=== PATIENT | male | born 1945 | race Caucasian/White ===

== ENCOUNTER 2019-08-08 01:25 | Day surgery (SDC) | payer OTHER, SELFPAY ==
[2019-08-07 17:01] VITALS: BMI 26.6
[2019-08-08] VITALS (13 sets, daily range): BP systolic 95–135; BP diastolic 59–95; PULSE 65–79; RESP 10–17; TEMP 36.7–36.9; O2SAT 96–99
[2019-08-08 07:52] LABS: Basophils Absolute Auto 0.1 K/mm3 (0.0-0.1); Eosinophils Absolute Auto 0.2 K/mm3 (0-0.3); Hematocrit 50.6 % (42.0-52.0); Hemoglobin 16.2 g/dL (14.0-18.0); Immature Granulocyte Absolute 0.02 K/mm3 (0.00-0.031); Immature Granulocyte Percent A 0.3 % (0-0.5); Lymphocytes Absolute Auto 1.81 K/mm3 (0.9-3.2); Lymphocytes Percent Auto 23.6 % (18.3-44.2); Mean Corpuscular Hemoglobin 30.8 pg (26-34); Mean Corpuscular Volume 96.2 fl (80-100); Mean Platelet Volume 11.2 fl (7.4-10.4); Monocytes Absolute Auto 0.6 K/mm3 (0.1-0.6); Monocytes Percent Auto 8.2 % (2.6-8.5); Neutrophils Percent Auto 64.9 % (45.5-73.1); Platelet Count Result 218 k/mm3 (150-375); Red Blood Count 5.26 M/mm3 (4.6-6.20); Red Cell Distribution Width 12.2 % (11.5-14.5); White Blood Count 7.7 K/mm3 (4.5-10.0)
[2019-08-08 07:56] LABS: Prothrombin Time 12.8 Seconds (11.1-14.7)
[2019-08-08 08:02] LABS: Blood Urea Nitrogen 20 mg/dL (9-20); Calcium 9.4 mg/dL (8.4-10.2); Carbon Dioxide 28 mmol/L (22-30); Chloride 102 mmol/L (98-107); Estimated CRCL calculation 49 ml/min; Estimated Glomerular Filt Rate > 60; Glucose 134 mg/dL (75-110); Potassium 4.4 mmol/L (3.4-5.0); Sodium 140 mmol/L (137-145)
--- NOTE | 2019-08-08 09:04 | WPDMODSED ---
Moderate Sedation Note-Pt Data Patient Data Diagnosis: Newly diagnosed cardiomyopathy Present Complaint: fatigue/dyspnea Procedure to be performed/Plan: left heart catheterization Allergies Allergy/AdvReac Type Severity Reaction Status Date / Time No Known Allergies Allergy Unverified 04/05/16 15:02 Home Medications Medication Instructions Recorded Confirmed Type aspirin 81 mg PO DAILY 08/07/19 08/07/19 History carvedilol 3.125 mg PO BID 08/07/19 08/07/19 History ciprofloxacin HCl [Cipro] 500 mg PO Q12H 08/07/19 08/07/19 History glimepiride [Amaryl] 1 mg PO DAILY 08/07/19 08/07/19 History lisinopril 40 mg PO DAILY 08/07/19 08/07/19 History lovastatin 40 mg PO QPM 08/07/19 08/07/19 History metformin 500 mg PO BID 08/07/19 08/07/19 History Current Medications: Active Medications Sodium Chloride (Normal Saline Iv) 500 mls @ 100 mls/hr IV CONT .Q5H [facility] Sedation/Anesthesia: No previous sedation/anesthesia problems (including family history). [facility] Social History Social History Gender identity (if verbalized by the patient): Male Mod Sed Physical Exam Physical Exam Pre Procedural Exam: Normal: Appearance, Neck, Throat, Airway, Lungs, Heart Rate, Heart Rhythm, Neuro Exam and Extremities and Variation: Heart Size ( PMI laterally displaced) Hours since solid foods: 12 Hours since liquid intake: 12 Internal Medicine - PN: Obj Da Vital Signs Vital Signs: Vital Signs - 24 hr 08/08/19 07:45 Temperature 36.9 C Pulse Rate 66 Respiratory Rate 10 L Blood Pressure 126/81 Pulse Oximetry 99 Meds/Results Medications: Active Medications Generic Name Dose Route Start Last Admin Trade Name Freq PRN Reason Stop Dose Admin Sodium Chloride 500 mls @ 100 mls/hr 08/08/19 06:00 Normal Saline Iv IV CONT .Q5H [facility] Labs CBC & Chem 7: 08/08/19 07:41 08/08/19 07:41 Labs: Laboratory Results - last 24 hr 08/08/19 08/08/19 08/08/19 07:41 07:41 07:41 WBC 7.7 RBC 5.26 Hgb 16.2 Hct 50.6 MCV 96.2 MCH 30.8 MCHC 32.0 RDW 12.2 Plt Count 218 MPV 11.2 H Immature Gran % (Auto) 0.3 Neut % (Auto) 64.9 Lymph % (Auto) 23.6 Edmunds % (Auto) 8.2 Eos % (Auto) 2.0 Baso % (Auto) 1.0 Lymph # (Auto) 1.81 Edmunds # (Auto) 0.6 Eos # (Auto) 0.2 Baso # (Auto) 0.1 Abs Immat Gran (auto) 0.02 Absolute Neuts (auto) 5.0 Absolute Nucleated RBC 0.0 Nucleated RBC % 0.0 PT 12.8 INR 1.0 Sodium 140 Potassium 4.4 Chloride 102 Carbon Dioxide 28 BUN 20 Creatinine 1.00 Estim Creat Clear Calc 49 Estimated GFR > 60 Glucose 134 H Calcium 9.4 ASA Classification/Sedation ASA Classification/Sedation ASA Class: II Emergent: No Risks: Risks, benefits and alternatives explained and patient/family accepted plan for sedation. Patient re-evaluated immediately prior to sedation.
--- NOTE | 2019-08-08 09:33 | P.PCNCC_ITS ---
Cardiac Cath Procedure Note Date of procedure:: 08/08/19 Performing physician:: Kelechi Bryant MD Indication:: cardiomyopathy with low ejection fraction Brief clinical history:: 74-year-old patient with no previous significant cardiac history seen in the office with newly recognized left ventricular systolic dysfunction. By ECHO the patient appears to have a global cardiomyopathy. Catheterization was recommended to define the coronary anatomy in this setting. Procedure Procedure performed:: Left heart catheterization with left ventriculography and coronary angiography Sedation/Medication given:: fentanyl 50 mg Versed 2 mg case start time 9:11 a.m. case end time 9:26 a.m. sedation provided by Laney Garcias RN, trained observer Access site:: right femoral artery Estimated blood loss:: 15-20 cc Procedure note:: patient was brought to the cardiac catheterization lab in the postabsorptive state where the right femoral triangle was prepared in the usual fashion anesthesia was given with 1% lidocaine infiltrated locally. Using the modified Seldinger technique a 5 Trinidadian sheath was placed into the femoral artery. After this left heart catheterization was carried out. A 5 Trinidadian angled pigtail catheter was used to measure left-sided hemodynamics and to injected LV g in the are AO projection. Following this the pigtail catheter was removed. A standard 5 Trinidadian FL4 catheter was used to engage inject the left coronary artery after this a 5 Trinidadian JR4 catheter was used to engage inject the right coronary artery. Cineangiograms were then reviewed and the case was terminated. Patient was taken to the holding area for manual sheath removal. There were no signs of any procedural complications. There was no groin hematoma upon leaving chemical lab technician Findings:: central aortic pressure is 102/50 left ventricle 102/0 end-diastolic pressure of 10 no gradient was seen across the aortic valve upon pullback. Left main coronary artery is of large caliber there is mild atherosclerotic plaque in the midportion of the LAD representing no more than 20-30% stenosis. There was no pressure damping with a 5 Trinidadian diagnostic catheter distal to this lesion. The LAD is a medium caliber vessel extending down to around the apex. There is mild atherosclerotic plaquing in the proximal portion of the LAD. There is a very large diagonal branch after which there is a 95% stenosis in the LAD immediately after this diagonal branch. Circumflex is a [id number] caliber vessel giving rise to the marginal branches circumflex system is free of disease right coronary artery is large in caliber dominant to the posterior circulation it is somewhat tortuous but free of disease. The left ventricle is markedly dilated and globally hypodynamic. 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 Normal left ventricular filling pressures severe single-vessel coronary artery disease with high-grade stenosis in the LAD with the lesion located immediately at a may very large diagonal branch. PCI of this coronary artery disease should be recommended as optimal treatment however the procedure is not an emergency and is substantially increased risk since we are seeing a patient with severely depressed LV function and a significant lesion involving the LAD diagonal bifurcation. It is my opinion that this PCI should be done at a larger hospital With more interventional capabilities and cardiothoracic surgery standby for the patient's safety
== END 2019-08-08 16:15 | disposition home or self-care (01) ==
PROVIDERS: PCP Family Medicine Adolescent Medicine; Visit Provider Specialist
PROC: 4A023N7 Measurement of Cardiac Sampling and Pressure, Left Heart, Percutaneous Approach (ICD-10-PCS; CPT 93452; principal; 2019-08-08 08:30)
DX: I42.9 Cardiomyopathy, unspecified (principal); I25.10 Atherosclerotic heart disease of native coronary artery without angina pectoris; I50.20 Unspecified systolic (congestive) heart failure; E11.9 Type 2 diabetes mellitus without complications; N40.0 Benign prostatic hyperplasia without lower urinary tract symptoms; E78.5 Hyperlipidemia, unspecified; Z79.82 Long term (current) use of aspirin; Z79.84 Long term (current) use of oral hypoglycemic drugs
CPT/HCPCS: 36415; 80048; 85025; 85610; 93458; C1887; C1894; J1644; J2250; J3010; J7040

== ENCOUNTER 2020-01-17 02:05 | Outpatient (CLI) | payer OTHER, SELFPAY ==
[2020-01-17 21:41] LABS: SARS-CoV-2 RNA PCR Negative
== END 2020-01-17 02:06 | disposition home or self-care (01) ==
LOC: ANHCOVIDDT 02:05
PROVIDERS: PCP Family Medicine Adolescent Medicine; Visit Provider Internal Medicine Cardiovascular Disease
DX: Z01.812 Encounter for preprocedural laboratory examination (principal); Z11.59 Encounter for screening for other viral diseases
CPT/HCPCS: 87635; C9803; U0003

== ENCOUNTER 2020-01-20 05:29 | Day surgery (SDC) | payer OTHER, SELFPAY ==
[2020-01-19 16:13] VITALS: BMI 25.7
[2020-01-20] VITALS (16 sets, daily range): BP systolic 101–138; BP diastolic 64–79; PULSE 54–69; RESP 10–18; TEMP 36.3–36.6; O2SAT 96–98; BMI 25.1
--- NOTE | ~2020-01-20 | XR_ITS ---
EXAMINATION: XR chest 2V 01/21/2020 08:21 INDICATION: Defibrillator placement. PROCEDURE: PA and lateral views of the chest COMPARISON: 01/20/2020 FINDINGS: The lungs are clear. The cardiomediastinal silhouette is within normal limits. There are no pleural effusions. There is no pneumothorax suspected. Defibrillator lead position stable in the right ventricle. IMPRESSION: 1: NO ACUTE CARDIOPULMONARY DISEASE. Reviewed, dictated and finalized at location B.
--- NOTE | ~2020-01-20 | XR_ITS ---
EXAMINATION: XR chest 1V portable 01/20/2020 12:40 INDICATION: Defibrillator insertion PROCEDURE: AP portable chest COMPARISON: No prior studies for comparison. FINDINGS: The lungs are clear. The cardiomediastinal silhouette is within normal limits. There are no pleural effusions. There is no pneumothorax suspected. Defibrillator lead tip in the right ventr icle. IMPRESSION: 1: NO ACUTE CARDIOPULMONARY DISEASE. Reviewed, dictated and finalized at location B.
[2020-01-20 08:22] LABS: Basophils Absolute Auto 0.1 K/mm3 (0.0-0.1); Eosinophils Absolute Auto 0.1 K/mm3 (0-0.3); Eosinophils Percent Auto 1.3 % (0-4.4); Hemoglobin 15.4 g/dL (14.0-18.0); Immature Granulocyte Absolute 0.01 K/mm3 (0.00-0.031); Immature Granulocyte Percent A 0.1 % (0-0.5); Lymphocytes Absolute Auto 1.59 K/mm3 (0.9-3.2); Lymphocytes Percent Auto 23.7 % (18.3-44.2); Mean Corpuscular HGB Conc 32.8 g/dl (32-36); Mean Corpuscular Hemoglobin 31.6 pg (26-34); Mean Corpuscular Volume 96.5 fl (80-100); Mean Platelet Volume 10.7 fl (7.4-10.4); Monocytes Absolute Auto 0.4 K/mm3 (0.1-0.6); Monocytes Percent Auto 6.4 % (2.6-8.5); Neutrophils Absolute Auto 4.5 K/mm3 (1.3-6.7); Neutrophils Percent Auto 67.5 % (45.5-73.1); Platelet Count Result 220 k/mm3 (150-375); Red Blood Count 4.87 M/mm3 (4.6-6.20); Red Cell Distribution Width 12.1 % (11.5-14.5); White Blood Count 6.7 K/mm3 (4.5-10.0)
[2020-01-20 08:33] LABS: Blood Urea Nitrogen 20 mg/dL (9-20); Calcium 8.7 mg/dL (8.4-10.2); Carbon Dioxide 23 mmol/L (22-30); Chloride 104 mmol/L (98-107); Estimated CRCL calculation 60 ml/min; Estimated Glomerular Filt Rate > 60; Glucose 152 mg/dL (75-110); Potassium 4.6 mmol/L (3.4-5.0); Sodium 135 mmol/L (137-145)
[2020-01-20 08:36] LABS: INR 1.1; Prothrombin Time 13.4 Seconds (11.1-14.7)
--- NOTE | 2020-01-20 09:38 | P.HPUP_ITS ---
History and Physical Update Update Date/Time: 01/20/20 09:38 Pt w/ CAD, LAD stent 08/2019 and nonischemic cardiomyopathy, EF 30%. At risk for SCD. Wearing Life Vest. Here for elective ICD implant with venogram. H/O left clavicular fracture. Feeling well today. History and Physical has been reviewed, including an updated exam of the patient. There are NO changes in the patient's condition. Risks, benefits, and alternatives have been discussed and questions answered. Nirmala harrywed risks of pacemaker implant with patient. These include breathing problems, allergic reactions, bleeding, infection, pneumothorax, cardiac puncture, need for unanticipated surgery, lead dislodgement among others. Patient agrees to proceed with procedure.
--- NOTE | 2020-01-20 09:41 | WPDMODSED ---
Moderate Sedation Note-Pt Data Patient Data Diagnosis: Nonischemic cardiomyopathy, class 2 CHF, CAD with Left anterior descending stent in August 2019, at risk for sudden cardiac . Present Complaint: Cardiomyopathy, at risk for sudden cardiac Procedure to be performed/Plan: Conscious sedation Venogram implantation of a transvenous ICD Allergies Allergy/AdvReac Type Severity Reaction Status Date / Time No Known Allergies Allergy Verified 01/19/20 15:10 Home Medications Medication Instructions Recorded Confirmed Type aspirin 81 mg PO DAILY 08/07/19 01/19/20 History glimepiride [Amaryl] 1 mg PO DAILY 08/07/19 01/19/20 History lisinopril 40 mg PO DAILY 08/07/19 01/19/20 History lovastatin 40 mg PO QPM 08/07/19 01/19/20 History metformin 500 mg PO BID #0 tablet 08/08/19 01/19/20 Rx carvedilol 12.5 mg PO BID 01/19/20 01/19/20 History icosapent ethyl [Vascepa] 2 g PO BID 01/19/20 01/19/20 History sacubitril-valsartan [Entresto] 1 tablet PO BID 01/19/20 01/19/20 History spironolactone 12.5 mg PO DAILY 01/19/20 01/19/20 History ticagrelor [Brilinta] 90 mg PO Q12H 01/19/20 01/19/20 History Current Medications: Active Medications Cefazolin Sodium (Ancef 1 Gm/D5w 50 Ml Pm) 1 gm in 50 mls @ 100 mls/hr IVPB ONCE ONE Stop: 01/20/20 09:59 Sedation/Anesthesia: No previous sedation/anesthesia problems (including family history). [facility] Past Medical History Medical History (Updated 01/20/20 @ 09:44 by Nazia Goldstein MD) CAD (coronary artery disease) Left anterior descending stent August 2019 Cardiomyopathy Diagnosed July 2019 Social History Social History (Updated 01/20/20 @ 09:45 by Nazia Goldstein MD) Social History: , retired Gender identity (if verbalized by the patient): Male Mod Sed Physical Exam Physical Exam Pre Procedural Exam: Normal: Appearance (Wearing LifeVest), Eyes, Ears, Nose, Neck, Throat, Airway, Lungs, Heart Size, Heart Rate, Heart Rhythm, Neuro Exam, Abdomen, Liver, Genitalia, Extremities and Skin (Skin over the left prepectoral area is intact. Mild thickening of the clavicle) Hours since solid foods: 12 Hours since liquid intake: 12 Internal Medicine - PN: Obj Da Vital Signs Vital Signs: Vital Signs - 24 hr 01/20/20 08:25 Temperature 97.8 F Pulse Rate 56 L Respiratory Rate 10 L Blood Pressure 138/79 Pulse Oximetry 97 Meds/Results Medications: Active Medications Generic Name Dose Route Start Last Admin Trade Name Freq PRN Reason Stop Dose Admin Cefazolin Sodium 1 gm in 50 mls @ 100 mls/hr 01/20/20 09:30 Ancef 1 Gm/D5w 50 Ml Pm IVPB 01/20/20 09:59 ONCE ONE Labs CBC & Chem 7: 01/20/20 08:15 01/20/20 08:15 Labs: Laboratory Results - last 24 hr 01/20/20 01/20/20 01/20/20 08:15 08:15 08:15 WBC 6.7 RBC 4.87 Hgb 15.4 Hct 47.0 MCV 96.5 MCH 31.6 MCHC 32.8 RDW 12.1 Plt Count 220 MPV 10.7 H Immature Gran % (Auto) 0.1 Neut % (Auto) 67.5 Lymph % (Auto) 23.7 [place] % (Auto) 6.4 Eos % (Auto) 1.3 Baso % (Auto) 1.0 Lymph # (Auto) 1.59 [place] # (Auto) 0.4 Eos # (Auto) 0.1 Baso # (Auto) 0.1 Abs Immat Gran (auto) 0.01 Absolute Neuts (auto) 4.5 Absolute Nucleated RBC 0.0 Nucleated RBC % 0.0 PT 13.4 INR 1.1 Sodium 135 L Potassium 4.6 Chloride 104 Carbon Dioxide 23 BUN 20 Creatinine 0.80 Estim Creat Clear Calc 60 Estimated GFR > 60 Glucose 152 H Calcium 8.7 ASA Classification/Sedation ASA Classification/Sedation ASA Class: III Emergent: No Risks: Risks, benefits and alternatives explained and patient/family accepted plan for sedation. Reviewed risks of ICD implant with patient. These include breathing problems, allergic reactions, bleeding, infection, pneumothorax, cardiac puncture, need for unanticipated surgery, lead dislodgement among others. Patient re-evaluated immediatel
--- NOTE | 2020-01-20 11:35 | PM.OP ---
Procedure Note - Brief Procedure Note - Brief Date of procedure: 01/20/20 Pre-op diagnosis: Cardiomyopathy Cardiomyopathy risk for sudden cardiac Post-op diagnosis: same Procedure performed: Conscious sedation Venogram Implantation of a permanent single lead ICD Description of procedure: uneventful [employer] Implants: [employer]ik ICDActicor 7 VR-T DX, serial # [id number], lead Plexza ProMIR S CX 65/15 Anesthesia: local (with conscious sedation) Surgeon: Nazia Goldstein MD Estimated blood loss (mL): 15 Drains: No Packing: No Pathology: none sent Complications: No immediate complications Condition: stable Disposition: observation Findings: NSR
--- NOTE | 2020-01-20 12:06 | PM.PROC ---
Procedure Note - Detailed Date of procedure: 01/20/20 Pre-op diagnosis: Cardiomyopathy Cardiomyopathy, CAD, class 2 CHF, at risk for sudden cardiac Post-op diagnosis: same Procedure performed: Venogram Conscious sedation Iimplantation of a single lead ICD Description of procedure: PROCEDURE PERFORMED: Conscious sedation Venogram Placement of a permanent dual-chamber pacemaker SITE: Left prepectoral area MEDICATIONS GIVEN IN STAND UP COMEDIAN: Ancef 1 gram IV piggyback CONSCIOUS SEDATION: Assessment: The patient has no history of anesthesia problems. The patient's oropharynx is clear. The patient was deemed to be a good candidate for conscious sedation. The patient had continuous hemodynamic monitoring during the procedure. Start time: 10 12 Completion time: 1126 Total conscious sedation time: 74 minutes Medications: Versed 4 mg, fentanyl 100 mcg IV push Trained observer: Junaid Burciaga RN Outcome: The patient tolerated the procedure well with no complications. PROCEDURE: After informed consent , the patient was brought to the microbiology lab analyst and the left prepectoral area was prepped and draped in usual fashion . The patient received preop antibiotic and conscious sedation . The left prepectoral area was anesthetized with lidocaine . A venogram was performed and showed mild tortuosity of the left subclavian vein but patency. Next a skin incision was made and carried down to the prepectoral fascia. Hemostasis was obtained using electrocautery . The ICD pocket was formed. I attempted to gain access to the left subclavian/axillary vein using ultrasound; although I could see the vein being ?tented? and being collapse by the needle tip I could not actually perforate the vein. I then accessed the vein easily using a micropuncture technique through the pocket using the venogram as a guide. A J-tip guidewire was passed into the inferior vena cava, and the needle removed, and at 8 Croatian safety sheath was passed over the wire which was moved. The lead was then prolapsed through the tricuspid valve and advanced into the right ventricular apex. When suitable sensing and pacing thresholds were obtained, it was screwed into place. No extra cardiac stimulation was obtained using 10 volts. The sheath was withdrawn. The lead was secured to the prepectoral fascia using 2-0 silk over its sleeve. This is a right ventricular lead that has electrodes in the right atrium to detect atrial activity. The pocket was enlarged somewhat to accommodate the device, and cleansed with antibiotic containing solution . The pulse generator was introduced into the operative field, and the atrial and ventricular lead heads were secured into the generator . A gentle tug showed the leads were securely fastened. The device was introduced into the pocket. The subcutaneous tissues were closed in a double layer fashion with interrupted sutures, using 2-0 Vicryl suture , and the skin was closed in a continuous fashion using 4-0 Vicryl suture in a continuous fashion. The area was cleansed, and an Aquacel dressing was applied . The patient tolerated the procedure well with no complications. PACEMAKER INFORMATION: Pulse generator: [employer] Acticor 7VR-T DX, SErial # [id number] Right ventricular lead: [employer] Plexa Pro MRI S DX 65/15, Serial # [id number] MEASURED DATA: Right atrial: P wave sensing was 4.4 mV Right ventricular lead: R-wave sensing 16.4 mV, impedance 676 Ohms, shock impedance 84 Ohms, threshold 0.5 volts PROGRAMMING; VVI 40 Implants: Pulse generator: [employer] Acticor 7VR-T DX, SErial # [id number] Right ventricular lead: [employer] Plexa Pro MRI S DX 65/15, Serial # [id number] Anesthesia: local (With conscious sedation) Surgeon: Nazia Goldstein MD Estimated blood loss (mL): 10 Drains: No Packing: No Pathology: none sent Complications: No immediate complications Condition: stable Disposition: observation Findings: Patient remained in sinus rhy
--- NOTE | 2020-01-20 12:55 | ADMGEN ---
This patient, Kelechi Perry, was admitted to [facility]. Patient/family oriented to hospital policies and general routines including ID bracelet, bed and alarms, visiting hours, pain management, procedures, bathroom and other care routines, personal items, smoking policy, room service/diet, and visiting hours. Valuables list has been completed. Information on how to activate the Rapid Response Team has been discussed. Patient/Family are encouraged to report perceived risks to care and to ask questions if they do not understand what they are told or what they should do.
--- NOTE | 2020-01-20 13:33 | SUR.PHASEII ---
Continued documentation in PCS.
[2020-01-20] MEDS: SODIUM CHLORIDE 0.9% IV 1,000 ML 50 ML IV CONT (14:00)
[2020-01-20] MEDS: SACUBITRIL/VALSARTAN 49-51 MG TABLET 1 TABLET PO (17:32)
[2020-01-20] MEDS: metFORMIN HCL XR 500 MG TAB.SR.24H PO (17:32)
[2020-01-20] MEDS: LOVASTATIN 20 MG TABLET 40 MG PO (17:32)
[2020-01-20 21:56] LABS: Glucose Point of Care 154 (65-105)
[2020-01-20] MEDS: TICAGRELOR 90 MG TABLET PO (21:57)
[2020-01-20] MEDS: carvediloL 12.5 MG TABLET PO (21:57)
[2020-01-21] VITALS (8 sets, daily range): BP systolic 98–133; BP diastolic 52–77; PULSE 59–70; RESP 13–16; TEMP 36.5–36.9; O2SAT 94–98
--- NOTE | 2020-01-21 07:40 | PC.NURSE ---
BOY FROM [employer] HERE TO INTERROGATE NEW ICD. PT IS UP IN CHAIR EATING BREAKFAST.
--- NOTE | 2020-01-21 08:15 | PC.NURSE ---
DOWN FOR 2 VIEW CXR POST ICD PLACEMENT.
[2020-01-21] MEDS: GLIMEPIRIDE 1 MG TABLET PO (09:24)
[2020-01-21] MEDS: ASPIRIN 81 MG CHEWABLE TABLET PO (09:25)
[2020-01-21] MEDS: carvediloL 12.5 MG TABLET PO (09:25)
[2020-01-21] MEDS: SACUBITRIL/VALSARTAN 49-51 MG TABLET 1 TABLET PO (09:25)
[2020-01-21] MEDS: SPIRONOLACTONE 12.5 MG TABLET PO (09:26)
[2020-01-21] MEDS: TICAGRELOR 90 MG TABLET PO (09:26)
--- NOTE | 2020-01-21 09:30 | PC.NURSE ---
[facility] FAMILY MEDICINE PHYSICIAN ASSISTANT HERE TO SEE PT AND TAKE PRESSURE DRESSING OFF L. UPPER CHEST. EVALUATED ICD SITE L. UPPER CHEST. [place] DreamsELL AG DRESSING C/D/I TO SITE. SMALL AREA OF BRUISING NOTED TO L. LATERAL EGDE OF DRESSING NEAR AXILLA. SLING OFF ARM. NORCO RX 1 TAB GIVEN PO PER REQUEST FOR ACHING TENDERNESS TO L. UPPER CHEST SITE. WILL CONTINUE TO MONITOR.
--- NOTE | 2020-01-21 10:13 | PM.DS ---
DS: Admitting Diagnosis Admitting Diagnosis Admitting Diagnosis: Cardiomyopathy, CAD, class 2 CHF, at risk for sudden cardiac DS: Discharge Diagnosis Discharge Diagnosis (1) Cardiomyopathy: Code(s): I42.9 - Cardiomyopathy, unspecified Status: Acute Assessment and Plan: Cardiomyopathy, CAD, class 2 CHF, at risk for sudden cardiac status post Biotronik single-chamber ICD placement 01/20/2020. The device is functioning normally as programmed. No pneumothorax on chest x-ray. Pressure dressing removed. Left subclavian Aquacel dressing intact. No drainage. No swelling. minimal amount of ecchymosis at the axilla. Some discomfort at the site. DS: Summary Hospital Course Reason for hospitalization: CAD, cardiomyopathy at risk for sudden cardiac for placement of primary prevention ICD. Hospital Course: 74-year-old male with coronary artery disease and cardiomyopathy brought to the cardiac catheterization lab for placement of primary prevention ICD. Bi[employer]ronik single-chamber ICD was placed by Dr Goldstein on 01/20/2020. There are sensing leads in the atrium on the lead. The procedure was uneventful. No pneumothorax. He was monitored overnight. Device was functioning normally on the day of discharge. [employer] home monitoring will be set up when he arrives home. He was discharged home in stable condition. Pain was controlled. Status at Discharge Functional status at discharge: independent ambulation Overall status at discharge: patient is progressing back to baseline Time Spent with Patient Time attestation: Total time spent providing and/or coordinating discharge services: 25 minutes to do discharge orders, discharge instructions and discharge summary. Time spent: Less than 30 minutes Exam Const: General: comfortable Limitations: no limitations HENMT: Head: normal to inspection and normocephalic Ears: hearing grossly normal bilaterally and external ears normal Eyes: General: appearance normal, both eyes and all related structures Neck: Neck: supple Resp: Auscultation: clear to auscultation bilaterally Cardio: Rate: regular rate Rhythm: regular rhythm Heart sounds: no murmurs GI: GI Palp: Yes Soft to palpation Auscultation: normal bowel sounds Skin: General skin exam: normal color Extrem: General: normal to inspection and no edema Psych: Appearance: grossly normal Mental Status: mental status grossly normal Speech and movement: Normal speech and movement present Thought content: Yes Normal thought content present DS: Data Data Completed and Pending Labs on day of discharge: Labs from last 24 hours 01/20/20 21:54 POC Capillary Glucose 154 H Discharge Plan Discharge Patient Disposition: Home, Self-Care Discharge Instructions: ACTIVITY: No driving until you are seen in the office for your incision check. No lifting, pushing or pulling more than 5 pounds with left arm for 1 MONTH No lifting left arm above shoulder height for 1 MONTH Wear sling only if you are unable to remember the above activity restrictions. Recommend that it be worn at night. You may shower AFTER you are seen for incision check on January 26 but no tub baths, swimming pool or hot tub for 1MONTH FOLLOW-UP: Follow up with [facility] [place] ([facility] office at [facility] [address] to have dressing removed, incision checked and defibrillator checked on January 27, 2020 at 10:30 a.m.. Please arrive by 10:15 a.m. for your appointment. Bring photo ID and insurance card. with Dr. Cortes on February 09, 2020 at 12:15 p.m.. Please arrive by 12:00 p.m. for your appointment. Bring photo ID, insurance card and current medication list. with Demi Mckoy in the device Clinic on March 10, 2020 at 11:00 a.m.. Please arrive by 10:45 a.m. for your appointment. Bring photo ID and insurance
--- NOTE | 2020-01-21 11:55 | PC.NURSE ---
ALL DISCHARGE INSTRUCTIONS AND FOLLOW UP CARE HAVE BEEN REVIEWED WITH PT. AND QUESTIONS ANSWERED. VOICES UNDERSTANDING OF ALL. LIFE VEST SENT HOME W/ PT. ALL MONITORING AND BOOKLETS FOR ICD SENT HOME W/ PT. SLING SENT HOME W/ PT. L. UPPER CHEST DRESSING C/D/I. SITE WITHOUT REDNESS OR BLEEDING OR EDEMA. NO CHANGE IN NOTED BRUISE NEAR AXILLA. REVIEWED ALL ACTIVITY LIMITATIONS FOR L. ARM. DISCHARGED HOME, OUT VIA WC TO FRIEND'S WAITING TRUCK WITH ALL PERSONAL BELONGINGS, DISCHARGE INSTRUCTIONS AND ITEMS NOTED ABOVE. VOICES NO C/O PAIN. NO DISTRESS NOTED.
== END 2020-01-21 11:55 | disposition home or self-care (01) ==
LOC: ANHCATHLAB 07:57 → ANHCPC 13:01
PROVIDERS: PCP Family Medicine Adolescent Medicine; Visit Provider Internal Medicine Cardiovascular Disease
PROC: 0JH608Z Insertion of Defibrillator Generator into Chest Subcutaneous Tissue and Fascia, Open Approach (ICD-10-PCS; CPT 33249; principal; 2020-01-20 09:30)
DX: I42.8 Other cardiomyopathies (principal); I50.22 Chronic systolic (congestive) heart failure; I45.89 Other specified conduction disorders; I25.10 Atherosclerotic heart disease of native coronary artery without angina pectoris; R06.02 Shortness of breath; R07.89 Other chest pain; I11.0 Hypertensive heart disease with heart failure; E78.5 Hyperlipidemia, unspecified; E11.9 Type 2 diabetes mellitus without complications; N40.0 Benign prostatic hyperplasia without lower urinary tract symptoms; Z79.82 Long term (current) use of aspirin; Z79.84 Long term (current) use of oral hypoglycemic drugs; Z79.01 Long term (current) use of anticoagulants
CPT/HCPCS: 33249; 36415; 71045; 71046; 80048; 85025; 85610; 87635; A9270; C1722; C1777; C9803; J0690; J2250; J3010; J7030; J7040; U0003

== ENCOUNTER 2021-01-03 13:30 | Outpatient (RCR) | payer OTHER, SELFPAY ==
[2020-10-12 15:32] VITALS: BP 120/78; PULSE 60; RESP 16; TEMP 36.6; O2SAT 98
[2020-10-12 15:36] VITALS: PULSE 60
--- NOTE | 2020-10-25 14:12 | PCCPR ---
Absent today, not feeling well, stated that he hurt his back.
== END 2021-01-03 15:01 | disposition home or self-care (01) ==
LOC: ANHCPREHAB 13:30
PROVIDERS: PCP Family Medicine Adolescent Medicine; Visit Provider Internal Medicine Cardiovascular Disease
DX: Z95.5 Presence of coronary angioplasty implant and graft (principal)
CPT/HCPCS: 93798

== ENCOUNTER 2021-07-22 09:20 | Outpatient (CLI) | payer OTHER, SELFPAY ==
--- NOTE | 2021-07-22 09:24 | ECG_ITS ---
Measurements Intervals [place] Rate: 58 P: 28 CO: 167 QRS: 3 QRSD: 91 T: 21 QT: 392 QTc: 386 Interpretive Statements SINUS BRADYCARDIA BORDERLINE R WAVE PROGRESSION, ANTERIOR LEADS BASELINE ARTIFACT- I, II, AVR, AVL BORDERLINE ECG Electronically Signed On 07-22-2021 10:58:26 CLINICAL RESEARCH ADMINISTRATOR by Marshall Noel D.O.
[2021-07-22 09:56] LABS: Anion Gap 8 mmol/L (8-16); Blood Urea Nitrogen 20 mg/dL (9-20); Calcium 9.3 mg/dL (8.4-10.2); Carbon Dioxide 28 mmol/L (22-30); Chloride 103 mmol/L (98-107); Estimated Glomerular Filt Rate 59; Glucose 158 mg/dL (65-110); Sodium 139 mmol/L (137-145)
== END 2021-07-22 09:21 | disposition home or self-care (01) ==
PROVIDERS: Anesthesiology; PCP Family Medicine Adolescent Medicine; Visit Provider Urology
DX: E11.9 Type 2 diabetes mellitus without complications (principal); Z01.818 Encounter for other preprocedural examination; I10 Essential (primary) hypertension; R94.31 Abnormal electrocardiogram [ECG] [EKG]
CPT/HCPCS: 36415; 80048; 93005

== ENCOUNTER 2021-07-28 00:11 | Day surgery (SDC) | payer OTHER, SELFPAY ==
--- NOTE | 2021-07-19 16:12 | P.HP_ITS ---
History of Present Illness History of Present Illness Consent: Risks, benefits, and alternatives have been discussed and questions answered. Patient agrees to proceed with procedure. Chief complaint: bladder wall thickening Narrative: Kelechi Perry is a 76 year old male recently referred for outlet obstructive voiding symptoms. At that time he was found to have microhematuria. CT-abd/pelvis showed nomrla upper tracts but cysto. showed 3-4cm urothelial ca. Discussed finding and tretemnt with TURBT and intravesicle chemotherapy. He's aware of risks including, but not limited to, disruption of bladder integrity, recurrent cancer, hematuria. Review of Systems Cardiovascular: Cardiovascular: Denies chest pain, Denies lightheadedness, Denies palpitations and Denies dyspnea Respiratory: Respiratory: Denies dyspnea Gastrointestinal: Gastrointestinal: Denies diarrhea, Denies nausea and Denies vomiting Genitourinary: Genitourinary: Denies hematuria and Denies dysuria Endocrine: Endocrine: Denies palpitations PMFSH Past Medical History Medical History CAD (coronary artery disease) Left anterior descending stent August 2019 Cardiomyopathy Diagnosed July 2019 Family History Family History Mother Diabetes mellitus Hypertension Alzheimer disease CAD (coronary artery disease) Father Hypertension CAD (coronary artery disease) Other Acute myocardial infarction Social History Social History Social History: , retired Smoking status: Never smoker Second hand tobacco smoke exposure: No Gender identity (if verbalized by the patient): Male Meds Home Medications and Allergies Home Medications Medication Instructions Recorded Confirmed Type aspirin 81 mg PO DAILY 08/07/19 01/19/20 History glimepiride [Amaryl] 1 mg PO DAILY 08/07/19 01/19/20 History lovastatin 40 mg PO QPM 08/07/19 01/19/20 History Entresto 1 tablet PO BID 01/19/20 01/19/20 History Vascepa 2 g PO BID 01/19/20 01/19/20 History carvedilol 12.5 mg PO BID 01/19/20 01/19/20 History spironolactone 12.5 mg PO DAILY 01/19/20 01/19/20 History metformin 500 mg tablet,extended 2,000 mg PO QPM #360 tablet 07/18/21 Rx release 24 hr Allergies Allergy/AdvReac Type Severity Reaction Status Date / Time No Known Allergies Allergy Verified 01/19/20 15:10 Exam Const: General: no acute distress Resp: Effort & Inspection: normal respiratory effort GI: Inspection: non-distended GI Palp: No abdominal tenderness and No Guarding due to palpation present (GI) Auscultation: normal bowel sounds Assessment and Plan Assessment and plan (1) Cancer of overlapping sites of bladder: Code(s): C67.8 - Malignant neoplasm of overlapping sites of bladder Status: Acute Assessment and Plan: * TURBT, Gemcitabine instillation
[2021-07-21 15:27] VITALS: BMI 25.9
--- NOTE | 2021-07-21 15:54 | PC.NURSE ---
Report to the Outpatient Waiting Room, entrance under the green pavilion located off [facility], at time _0600_ on date _07/28/21__. OR Time: ___729 . - You and your visitor will be asked a series of questions to screen for COVID 19 for your protection. - A mask is required within the hospital. - NO visitors are allowed at this time. Patient visitors will be guided where to wait when not with patient. Preoperative COVID Testing Requirements: No COVID Test needed if: (proof is required; if not received patient will have Rapid Test prior to entry) - Patient has received COVID Vaccine at least 14 days prior to procedure date or - Patient has positive COVID test result within last 90 days of surgery date. COVID Test needed if above criteria is not met If not COVID vaccinated a COVID test must be conducted within 72 hours of surgery and patient is asked to isolate self from time of testing until procedure. You will go to the [facility] for your COVID testing. The [facility] site is located at the corner of [address] [facility]. You will only be called if COVID results are positive and your surgeon may reschedule your elective surgery date. Patients may have clear liquids (water, carbonated beverages, clear teas, apple juice) until 3 hours prior to surgery with a maximum of 20 ounces. (0430 AM) - No food from midnight until time of surgery - Infants may have breast milk until 4 hours before surgery, infant formula 6 hours prior to surgery. - Children will be allowed to drink immediately following surgery. If applicable, please bring a bottle or sippy cup to assist with drinking. Juice, water, soda, and popsicles are readily available. For infants on formula, please bring formula the day of surgery. Pacifiers are allowed. Take the following medications with a SIP of water the morning of surgery: _CARVEDILOL__ Medications to discontinue per physician __ASPIRIN INSTRUCTED BY DR. CHAPA Please no make-up, nail vietnamese, hairspray, perfume, deodorant, or body powder the day of surgery. No jewelry (including any body piercings) or valuables the day of surgery, leave them at home. Please take a shower or bath the night before, or the morning of, surgery with an antibacterial soap. Wear comfortable, loose fitting clothing. Children are encouraged to wear pajamas. - Jewelry must be removed prior to entering the operating room. Rings and piercings that are not removed may be cut off. - The hospital will not accept responsibility for valuables. - Please leave all valuables, including medications, at home the day of surgery. If you are going home after surgery, a licensed sweeper driver must drive you home. - NO public transportation without another adult. - We recommend that an adult stay with you for 24 hours following discharge. - We also recommend that you do not drive, make important decision, drink alcoholic beverages, or take any drugs that were not prescribed by your health care provider for at least 24 hours after your discharge time. For Pediatric surgeries, we recommend two adults accompany the child home (only one inside the building at this time). Follow any additional instructions given to you from your surgeon. Telephone instructions given to __PT and asked if any additional questions and then verbalized understanding. Patient advised to call surgeon office or pre surgery nurse liaison [phone] if any additional questions.
--- NOTE | 2021-07-27 12:49 | WPDANESEPPF ---
Anes - Initial Pre Proc Eval Procedure: Operation Date: 07/28/21 07:30 Proposed Procedures p Trans Urethral Resection Bladder Tumor with Gemcitabine Instillation - Charan Randle MD Date/Time: 07/27/21 12:49 Surgeon: Charan Randle MD Pre Op Diagnosis: bladder wall thickening Patient Data Age: 76 Gender: M Height: 1.65 m Weight: 70.9 kg Allergies Allergy/AdvReac Type Severity Reaction Status Date / Time No Known Allergies Allergy Verified 07/28/21 06:04 Home Medications Medication Instructions Recorded Confirmed Type aspirin 81 mg PO DAILY 08/07/19 07/28/21 History glimepiride [Amaryl] 1 mg PO DAILY 08/07/19 07/28/21 History lovastatin 40 mg PO QPM 08/07/19 07/28/21 History Entresto 1 tablet PO BID 01/19/20 07/28/21 History carvedilol 12.5 mg PO BID 01/19/20 07/28/21 History icosapent ethyl [Vascepa] 2 g PO BID 01/19/20 07/28/21 History spironolactone 12.5 mg PO DAILY 01/19/20 07/28/21 History metformin 500 mg tablet,extended 2,000 mg PO QPM #360 tablet 07/18/21 07/28/21 Rx release 24 hr finasteride 5 mg DAILY 07/21/21 07/28/21 History Patient hx anesthesia problems: none Family hx anesthesia problems: none Results Review: All pre-operative results and documents have been reviewed as part of the pre-operative evaluation. [facility] Past Medical History Medical History (Updated 07/27/21 @ 12:50 by Alexey Young DO) CAD (coronary artery disease) Left anterior descending stent August 2019 Cardiomyopathy Diagnosed July 2019 CHF (congestive heart failure) EF 30% Diabetes type 2, controlled Hyperlipidemia Hypertension ICD (implantable cardioverter-defibrillator) in place Family History Family History Mother Diabetes mellitus Hypertension Alzheimer disease CAD (coronary artery disease) Father Hypertension CAD (coronary artery disease) Other Acute myocardial infarction Social History Social History Social History: , retired Smoking status: Never smoker Second hand tobacco smoke exposure: No Alcohol intake: never Substance use: never Substance use type: does not use Living arrangements: with family Gender identity (if verbalized by the patient): Male Spiritual care concerns: No Anes - Eval Final PreProcedure Day of Procedure 07/27/21 12:49 Patient weight: overweight Heart: regular rate and rhythm Lungs: clear to auscultation and normal air movement Airway: Mallampati scale class II Neurological: alert and oriented Last oral intake: >/= 8 hours ASA classification: IV Emergent: no Anesthetic plan: proceed Anesthesia type and monitoring: general LMA and standard monitoring Results Review: All pre-operative results and documents have been reviewed as part of the pre-operative evaluation. Informed Consent: The patient's anesthetic plan and its attendant risks and benefits were discussed with the patient/family/POA. Questions were solicited and answers provided to the satisfaction of the patient/family/POA.
[2021-07-28] VITALS (10 sets, daily range): BP systolic 120–159; BP diastolic 58–87; PULSE 53–68; RESP 10–20; TEMP 36–36.3; O2SAT 98–100; BMI 26.5
--- NOTE | 2021-07-28 06:11 | SUR.PREOP ---
DR. CHAPA INFORMED LAST DOSE OF ASA WAS 07/27/21
--- NOTE | 2021-07-28 06:11 | WPDHPUPDATE1 ---
History and Physical Update Update Date/Time: 07/28/21 06:11 History and Physical has been reviewed, including an updated exam of the patient. There are NO changes in the patient's condition. Risks, benefits, and alternatives have been discussed and questions answered. Patient agrees to proceed with procedure.
[2021-07-28] MEDS: LACTATED RINGERS 1,000 ML 30 ML IV CONT (06:31)
--- NOTE | 2021-07-28 06:37 | SUR.PREOP ---
DR. CHAPA TALKING WITH PT, OK TO PROCEED WITH OR PLANED
[2021-07-28 06:40] LABS: Glucose Point of Care 146 mg/dl (65-105)
--- NOTE | 2021-07-28 07:18 | SUR.PREOP ---
0715 PT AMBULATED TO AND FROM BATHROOM WITH STAND BY ASSIST X1
[2021-07-28] MEDS: ceFAZolin 2 GM/D5W 50 ML 2 GM/50 ML BAG IVPB (07:27)
--- NOTE | 2021-07-28 08:04 | W.PM.PROC2 ---
Procedure Note - Detailed Date of Procedure 07/28/21 Pre-op Diagnosis Bladder cancer of the left posterior-lateral bladder wall Post-op Diagnosis same Procedure Performed 1. TURBT ( medium, 4-5 cm0 2. Bladder biopsy Surgeon Charan Randle MD Anesthesia general Findings 1. 4-5 cm urothelial neoplasm involving the left posterior lateral bladder wall 2. Hyperemia extending towards the dome suggestive possible carcinoma in-situ Description of Procedure Patient is brought to the operative suite was prepped draped in routine sterile fashion while in dorsal lithotomy position after the uneventful induction of a general endotracheal anesthetic. Twenty-four F resectoscope was placed in his bladder. He has no urethral stricture and evidence of prior laser prostatectomy. Bladder shows pawan neoplasm the left posterior lateral bladder wall overlying left ureteral orifice. I resected this with a loop electrode with an attempt made to include detrusor muscle for pathological evaluation of invasion. This area was cauterized with the loop. I had to resect the left ureteral orifice but avoided cautery in that area. In addition the referring neoplasm there was some hyperemia extending towards the dome suggestive of possible carcinoma in-situ. Took biopsies from this area and cauterized extensively. The dome and right lateral bladder wall were endoscopically normal. Prostatic urethra showed evidence of urothelial neoplasm. Estimated Blood Loss 5 Drains Yes Packing No Pathology yes Complications No immediate complications Condition stable Disposition PACU
[2021-07-28] MEDS: SODIUM CHLORIDE 0.9% IV 23.7 ML, GEMCITABINE HCL 1,000 MG BLADDER ×2 (08:18→08:20)
[2021-07-28 08:23] LABS: Glucose Point of Care 127 mg/dl (65-105)
--- NOTE | 2021-07-28 08:29 | SUR.PHASEI ---
0818; DR CHAPA IRRIGATED BUNCH CATHETER, THEN INSTILLED GEMCITABINE. HE THEN CLAMPED BUNCH. 0820; PT LYING FLAT ON BACK.
--- NOTE | 2021-07-28 08:33 | P.OP_ITS ---
Procedure Note - Detailed Date of Procedure 07/28/21 Pre-op Diagnosis Bladder cancer Post-op Diagnosis same Procedure Performed Gemcitabine bladder installation Surgeon Charan Randle MD Anesthesia other Description of Procedure With the patient in the supine position, a 16F Sherman catheter is placed using s terile technique. Using a protective facemask, gown and double layer of gloves Gemcitabine 2gm in 100cc saline is administered through the catheter/into the bladder. The catheter is then plugged. Patient was instructed to lie supine x20min, then to roll both the left and right x20 min. each. Total dwell time will be 60 min., after which the bladder will be drained and catheter removed. Drains Yes Packing No Pathology none sent Complications No immediate complications Condition stable Disposition PACU
--- NOTE | 2021-07-28 08:42 | SUR.PHASEI ---
7775; PT ASSISTED TO LAY ON LT SIDE FOR 20 MIN
--- NOTE | 2021-07-28 08:59 | SUR.PHASEI ---
0900; PT ASSISTED TO LAY ON RT SIDE FOR 20 MIN.
[2021-07-28] MEDS: fentaNYL CITRATE INJ (*CRX) 100 MCG/2 ML VIAL 25 MCG IV PUSH ×2 (09:17→09:25)
== END 2021-07-28 10:32 | disposition home or self-care (01) ==
PROVIDERS: PCP Family Medicine Adolescent Medicine; Visit Provider Urology
PROC: 0TBB8ZZ Excision of Bladder, Via Natural or Artificial Opening Endoscopic (ICD-10-PCS; CPT 52235; principal; 2021-07-28 07:30)
DX: C67.8 Malignant neoplasm of overlapping sites of bladder (principal); I25.10 Atherosclerotic heart disease of native coronary artery without angina pectoris; I42.9 Cardiomyopathy, unspecified; E11.9 Type 2 diabetes mellitus without complications; I11.0 Hypertensive heart disease with heart failure; I50.9 Heart failure, unspecified; E78.5 Hyperlipidemia, unspecified; Z95.810 Presence of automatic (implantable) cardiac defibrillator; Z79.82 Long term (current) use of aspirin; Z79.84 Long term (current) use of oral hypoglycemic drugs
CPT/HCPCS: 52235; 52204; 51720; 36415; 80048; 82948; 88305; 93005; A9270; J0690; J1100; J2405; J2704; J3010; J7120; J9201

== ENCOUNTER 2021-12-02 14:57 | Observation (INO) | payer OTHER, SELFPAY ==
[2021-12-02] VITALS (15 sets, daily range): BP systolic 84–142; BP diastolic 38–69; PULSE 65–87; RESP 13–21; TEMP 36.4–36.8; O2SAT 98–100; BMI 27.3
--- NOTE | ~2021-12-02 | XR_ITS ---
EXAMINATION: XR chest 1V portable 12/02/2021 16:04 INDICATION: Syncope and dizziness. PROCEDURE: AP portable chest COMPARISON: 01/21/2020 FINDINGS: The lungs are clear. The defibrillator lead tip in the right ventricle. The cardiomediastin al silhouette is within normal limits. There are no pleural effusions. There is no pneumothorax brianna pected. IMPRESSION: 1: NO ACUTE CARDIOPULMONARY DISEASE. Reviewed, dictated and finalized at location A.
--- NOTE | ~2021-12-02 | CT_ITS ---
EXAMINATION: CTA chest PE protocol DATE: 12/02/2021 17:22 CDT INDICATION: Patient found unresponsive. Weak pulses. Dizziness. TECHNIQUE: Computed tomographic angiography (CTA) of the chest was performed with 100 mL Omnipaque-35 0 intravenous contrast. The dose-length product was 333.45 mGy-cm. Maximum intensity projection 3D-re constructions of the aorta and other arteries were constructed by the technologist on a separate work station. Automated exposure control and iterative reconstruction technique were employed. COMPARISON: None. FINDINGS: No significant pleural or pericardial effusion. There is gynecomastia. No significant pleur al or pericardial effusion. No thoracic lymphadenopathy. No evidence for aortic aneurysm or dissectio n. There are nonobstructing left renal stones. Study is technically adequate without evidence for pulmonary embolism. No pneumothorax. There is depe ndent atelectasis. No endobronchial lesions. No suspicious pulmonary nodules or masses. Mild-moderate thoracic spondylosis. IMPRESSION: 1. No evidence for pulmonary embolism. Dependent atelectasis. 2: Nonobstructing left nephrolithiasis. Reviewed, dictated and finalized at location A.
--- NOTE | 2021-12-02 15:00 | ECG_ITS ---
Measurements Intervals [place] Rate: 64 P: 21 MD: 181 QRS: -9 QRSD: 109 T: 28 QT: 389 QTc: 403 Interpretive Statements SINUS RHYTHM POOR R WAVE PROGRESSION, ANTERIOR LEADS BORDERLINE ECG Electronically Signed On 12-02-2021 17:17:27 CDT by Marshall Noel D.O.
--- NOTE | 2021-12-02 15:24 | ED.SYNCOPE ---
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 Patient went to his concrete pointer today for regular checkup, asymptomatic, while sitting on the exam chair, suddenly developed lightheadedness, dizziness, diaphoretic all over, and the vomiting once then blacked out. Did not fall to the ground. He denies any chest pain, shortness of breath or headache or focal neurodeficit prior to the beginning of the symptoms or after that. Patient denies any history of syncope before. Currently feeling spacey which is less potent compared to earlier today. History of diabetes, hypertension, hyperlipidemia, coronary stent, pacemaker defibrillator, currently patient on aspirin. He denies any fever, chills, abdominal pain, back pain, chest pain or shortness of breath. Related Data Home Medications Medication Instructions Recorded Confirmed aspirin 81 mg chewable tablet 81 mg PO DAILY 08/07/19 11/07/21 glimepiride 1 mg tablet (Amaryl) 1 mg PO DAILY 08/07/19 11/07/21 lovastatin 40 mg tablet 40 mg PO QPM 08/07/19 11/07/21 carvedilol 12.5 mg tablet 12.5 mg PO BID 01/19/20 11/07/21 icosapent ethyl 1 gram capsule 2 g PO BID 01/19/20 11/07/21 (Vascepa) sacubitril 49 mg-valsartan 51 mg 1 tablet PO BID 01/19/20 11/07/21 tablet (Entresto) spironolactone 25 mg tablet 12.5 mg PO DAILY 01/19/20 11/07/21 finasteride 5 mg tablet 5 mg DAILY 07/21/21 11/07/21 Allergies Allergy/AdvReac Type Severity Reaction Status Date / Time No Known Allergies Allergy Verified 11/07/21 11:09 Review of Systems Review of Systems: All systems reviewed & are unremarkable except as noted in HPI and below PMFSH Past Medical History Medical History CAD (coronary artery disease) Left anterior descending stent August 2019 Cardiomyopathy Diagnosed July 2019 CHF (congestive heart failure) EF 30% History of skin cancer basal cell, squamous cell Hyperlipidemia Hypertension ICD (implantable cardioverter-defibrillator) in place Surgical History Surgical History Hx of heart artery stent Family History Family History Mother Diabetes mellitus Hypertension Alzheimer disease CAD (coronary artery disease) Father Hypertension CAD (coronary artery disease) Acute myocardial infarction Social History Social History Social History: , retired Smoking status: Never smoker Second hand tobacco smoke exposure: No Alcohol intake: never Substance use: never Substance use type: does not use Gender identity (if verbalized by the patient): Male Sexual Orientation (if Verbalized by the Patient): Straight or Heterosexual Spiritual care concerns: No Agree to blood products: Yes Exam Narrative: General appearance: Well-developed, well-nourished Skin: Normal color Head: Normocephalic, nontraumatic Eyes: Clear conjunctiva ENT: Oropharynx normal, ears normal, nose normal Neck: Supple, nontender Chest and respiratory: Airway patent, no respiratory distress, no accessory muscle use Heart: Regular rate/rhythm Abdomen: Soft, nontender, no organomegaly, quiet bowel sounds Vascular: Normal peripheral pulses, normal capillary refill. Musculoskeletal: Normal range of motion, nontender back Neurologic: Alert and oriented ?3, STAFF HOME THERAPY RN is normal as tested, no gross motor deficit
[2021-12-02 15:51] LABS: Alveolar/Arterial O2 Gradient 44.5 mmHg; Base Excess ABG -3.9 mEq/l (+/-2.0); Fractional Inspired Oxygen 21 %; Oxygen Content ABG 15.2 %vol (16.0-22.0); Oxygen Saturation ABG 90.5 % (95.0-100.0); Oxyhemoglobin 90.6 % THb (90.0-100.0); PCO2 ABG 37.5 mmHg (35.0-45.0); PO2 ABG 60.3 mmHg (80.0-100.0); PO2 FiO2 Ratio Arterial Blood 2.87 %; Total Hemoglobin 11.9 g/dL (12.0-18.0); pH ABG 7.366 (7.350-7.450)
[2021-12-02 15:52] LABS: Site Drawn RIGHT RADIAL
[2021-12-02 15:53] LABS: Device ROOM AIR; Modified Allen's Test Pass
[2021-12-02 16:00] LABS: Basophils Percent Auto 0.4 % (0.2-1.2); Eosinophils Absolute Auto 0.1 K/mm3 (0-0.3); Eosinophils Percent Auto 1.2 % (0-4.4); Hematocrit 38.5 % (42.0-52.0); Hemoglobin 12.1 g/dL (14.0-18.0); Immature Granulocyte Absolute 0.03 K/mm3 (0.00-0.031); Immature Granulocyte Percent A 0.4 % (0-0.5); Lymphocytes Absolute Auto 0.88 K/mm3 (0.9-3.2); Lymphocytes Percent Auto 10.6 % (18.3-44.2); Mean Corpuscular HGB Conc 31.4 g/dl (32-36); Mean Corpuscular Hemoglobin 31.8 pg (26-34); Mean Platelet Volume 10.2 fl (7.4-10.4); Monocytes Absolute Auto 0.7 K/mm3 (0.1-0.6); Neutrophils Absolute Auto 6.6 K/mm3 (1.3-6.7); Neutrophils Percent Auto 79.4 % (45.5-73.1); Platelet Count Result 197 k/mm3 (150-375); Red Blood Count 3.81 M/mm3 (4.6-6.20); Red Cell Distribution Width 12.7 % (11.5-14.5); White Blood Count 8.3 K/mm3 (4.5-10.0)
[2021-12-02 16:10] LABS: Alanine Aminotransferase 17 U/L (6-50); Albumin Level 3.8 g/dL (3.5-5.1); Alkaline Phosphatase 89 U/L (38-126); Anion Gap 7 mmol/L (8-16); Aspartate Amino Transferase 22 U/L (17-59); Bilirubin,Total 0.5 mg/dL (0.2-1.3); Blood Urea Nitrogen 19 mg/dL (9-20); Calcium 8.3 mg/dL (8.4-10.2); Carbon Dioxide 23 mmol/L (22-30); Chloride 105 mmol/L (98-107); Estimated CRCL calculation 49 ml/min; Estimated Glomerular Filt Rate > 60; Glucose 167 mg/dL (65-110); Magnesium 1.8 mg/dL (1.6-2.3); Potassium 5.5 mmol/L (3.4-5.0); Sodium 135 mmol/L (137-145)
[2021-12-02 16:14] LABS: INR 1.1; Prothrombin Time 13.6 Seconds (11.1-14.7)
[2021-12-02 16:15] LABS: Partial Thromboplastin Time 29.4 SECONDS (22.3-36.8)
[2021-12-02 16:18] LABS: D Dimer 0.55 ug/mL (<0.48)
[2021-12-02 16:21] LABS: Troponin I < 0.012 ng/mL (0.000-0.034)
--- NOTE | 2021-12-02 16:53 | PC.NURSE ---
Pt has [employer] ICD. Called company for interrogation [phone] they will call the primary nurse back.
--- NOTE | 2021-12-02 17:00 | PC.NURSE ---
[employer] returned call and said that unless patient has his home transmitter with him they cannot do a remote interrogation and it will be approx 2 hours before someone can come out to do it. Pts does not drive and says they have no one who can go home and retrieve it so [employer] will send someone out.
[2021-12-02 17:13] LABS: INR 1.1; Lactic Acid Reflex 1.4 mmol/L (0.7-2.0); Prothrombin Time 13.8 Seconds (11.1-14.7)
[2021-12-02 17:14] LABS: Partial Thromboplastin Time 30.5 SECONDS (22.3-36.8)
--- NOTE | 2021-12-02 17:26 | PC.NURSE ---
PT unable to void at this time. urinal at bedside.
[2021-12-02] MEDS: SODIUM CHLORIDE 0.9% IV 1,000 ML 999 ML IV CONT (17:56)
[2021-12-02] MEDS: ENOXAPARIN 80 MG/0.8 ML SYRINGE SUB-Q (17:57)
[2021-12-02] MEDS: INSULIN HUMAN REGULAR (*BKC) 100 UNITS/ML 10 UNITS IV PUSH (18:46)
[2021-12-02] MEDS: SODIUM BICARBONATE 8.4% 50 MEQ/50 ML SYRINGE IV PUSH (19:06)
[2021-12-02] MEDS: DEXTROSE 50% 25 GM/50 ML SYRINGE IV PUSH (19:07)
[2021-12-02 19:27] LABS: Bacteria Urine Trace /hpf; Mucus Urine Rare /lpf; RBC Urine 0-2 /hpf (0-2); WBC Urine 51-75 /hpf
[2021-12-02 19:29] LABS: Appearance Urine Slightly Cloudy (Clear); Color Urine Yellow (Yellow)
[2021-12-02 19:30] LABS: Add Urine Microscopic? YES; Ketones Urine Negative (Negative); Protein Urine Trace mg/dL (Negative); pH Urine 5.5 (5.0-9.0)
[2021-12-02 19:31] LABS: Bilirubin Urine Negative (Negative); Blood Urine Trace-Intact (Negative); Glucose Urine UA Trace mg/dL (Negative); Leukocyte Esterase Ur 1+ LEU/UL (Negative); Nitrate Urine Negative (Negative); Urobilinogen Urine 0.2 mg/dL (<2.0)
[2021-12-02 19:48] LABS: SARS-CoV-2 RNA PCR Negative
--- NOTE | 2021-12-02 20:21 | PM.IMHP ---
H&P: HPI History of Present Illness Date/Time: Patient was placed observation status for expected length of stay less than 23 hours for management, will plan to re-evaluate tomorrow for improvement. 12/02/21 20:21 Chief Complaint: Syncopal episode Narrative: Mr. Perry is a 76-year-old gentleman who presented emergency room via EMS with a syncopal episode. Patient states he was at his annual ophthalmology exam and underwent his redness can and glaucoma test and got up and went to the next room and was reading the chart on the wall and was feeling fine. Patient states that he finished all of that and the doctor left the room and then he began feeling lightheaded and dizzy. Patient states he was somewhat diaphoretic and then he does remember anything except for EMS standing over him. Patient denies feeling any defibrillation from his ICD. Patient denied any chest pain, shortness a breath, or palpitations prior to the episode. Patient denies any fever or chills recently. 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 Patient states he has been taking all medications without any difficulty. Upon evaluation in emergency room patient did have an ABG that was performed that showed mild hypoxia. Patient was also noted to have an elevated D-dimer and underwent CTA of the chest showed no pulmonary embolism. Patient has a known history of ischemic cardiomyopathy status post ICD placement, CAD status post stent placement, bladder cancer status post TURBT and intravesical chemotherapy, diabetes mellitus, BPH, and hypertension. Patient states that he did have his stent placed to the mid LAD for high-grade stenosis. Review of Systems Review of Systems: A 12 point review of systems was completed patient all pertinent positive and negative per HPI the remainder are unremarkable. [facility] Past Medical History Medical History (Updated 12/02/21 @ 20:32 by Eladia Almodovar APRN) CAD (coronary artery disease) Left anterior descending stent August 2019 Cancer of overlapping sites of bladder Cardiomyopathy Diagnosed July 2019 CHF (congestive heart failure) EF 30% History of skin cancer basal cell, squamous cell Hyperlipidemia Hypertension ICD (implantable cardioverter-defibrillator) in place Surgical History Surgical History Hx of heart artery stent Family History Family History Mother Diabetes mellitus Hypertension Alzheimer disease CAD (coronary artery disease) Father Hypertension CAD (coronary artery disease) Acute myocardial infarction Social History Social History Social History: , retired Smoking status: Never smoker Second hand tobacco smoke exposure: No Alcohol intake: never Substance use: never Substance use type: does not use Gender identity (if verbalized by the patient): Male Sexual Orientation (if Verbalized by the Patient): Straight or Heterosexual Spiritual care concerns: No Agree to blood products: Yes Meds Home Medications and Allergies Home Medications Medication Instructions Recorded Confirmed Type aspirin 81 mg chewable tablet 81 mg PO DAILY 08/07/19 11/07/21 History glimepiride 1 mg tablet (Amaryl) 1 mg PO DAILY 08/07/19 11/07/21 History lovastatin 40 mg tablet 40 mg PO QPM 08/07/19 11/07/21 History carvedilol 12.5 mg tablet 12.5 mg PO BID 01/19/20 11/07/21 History icosapent ethyl 1 gram capsule 2 g PO BID 01/19/20 11/07/21 History (Vascepa) sacubitril 49 mg-valsartan 51 mg 1 tablet PO BID 01/19/20 11/07/21 History tablet (Entresto) spironolactone 25 mg tablet 12.5 mg PO DAILY 01/19/20 11/07/21 History metformin 500 mg tablet,extended 2,000 mg PO QPM #360 tabs 07/18/21 11/07/21 Rx release 24 hr finasteride
[2021-12-02 20:49] LABS: Anion Gap 6 mmol/L (8-16); Blood Urea Nitrogen 18 mg/dL (9-20); Calcium 7.5 mg/dL (8.4-10.2); Carbon Dioxide 24 mmol/L (22-30); Chloride 106 mmol/L (98-107); Estimated CRCL calculation 53 ml/min; Estimated Glomerular Filt Rate > 60; Glucose 203 mg/dL (65-110); Potassium 4.7 mmol/L (3.4-5.0); Sodium 136 mmol/L (137-145)
[2021-12-02 21:10] LABS: Glucose Point of Care 183 mg/dl (65-105)
[2021-12-02 21:55] LABS: Troponin I < 0.012 ng/mL (0.000-0.034)
[2021-12-02] MEDS: SODIUM CHLORIDE 0.9% IV 1,000 ML 75 ML IV CONT (21:56)
--- NOTE | 2021-12-02 22:00 | PC.NURSE ---
[facility] called for med list confirmation.
--- NOTE | 2021-12-02 22:32 | ADMIMU ---
This patient, Kelechi Perry, was admitted to IMU status, and placed in IMU Room 206-01 at 2045. Patient/family oriented to hospital policies and general routines including ID bracelet, bed and alarms, visiting hours, pain management, procedures, bathroom and other care routines, personal items, smoking policy, room service/diet, and visiting hours. Pt declines offer to lock up wallet. Information on how to activate the Rapid Response Team has been discussed. Patient/Family are encouraged to report perceived risks to care and to ask questions if they do not understand what they are told or what they should do.
[2021-12-03] VITALS (13 sets, daily range): BP systolic 106–117; BP diastolic 48–65; PULSE 68–79; RESP 15–24; TEMP 36.5–37; O2SAT 96–100
--- NOTE | 2021-12-03 | ECHO_ITS ---
Patient Info Name: Kelechi Perry Age: 76 years : 1945 Gender: Male Ht: 65 in Wt: 162 lbs BSA: 1.85 m2 HR: 81 bpm BP: 108 / 58 mmHg Heart Rhythm: Sinus Rhythm Technical Quality: Good Exam Date: 12/03/2021 1:15 PM Exam Location: [facility] Patient Status: Inpatient Admit Date: 12/02/2021 Staff Ordering Physician: Regi Ramos MD Maintenance Groundman: Sonja Obregon RDCS Attending Provider: Regi Ramos MD Referring Physician: Rachel YOON; Exam Type: CA echo doppler color flow Study Info Indications R55 - Syncope and collapse Complete two-dimensional, color flow and Doppler transthoracic echocardiogram is performed. Summary 1. Complete two-dimensional, color flow and Doppler transthoracic echocardiogram is performed. 2. Left ventricular chamber dimension is normal. 3. There is no increased left ventricular wall thickness. 4. Left ventricular septal wall motion is abnormal with septal motion related to bundle branch block. 5. The left ventricular diastolic function is grade I diastolic dysfunction. 6. There is no aortic valve stenosis. 7. There is mild mitral valve regurgitation. 8. There is mild tricuspid valve regurgitation. 9. Mild pulmonary hypertension, estimated pulmonary arterial systolic pressure is 37 mmHg. Left Ventricle Left ventricular chamber dimension is normal. There is no increased left ventricular wall thickness. Left ventricular septal wall motion is abnormal with septal motion related to bundle branch block. The left ventricular diastolic function is grade I diastolic dysfunction. Right Ventricle Right ventricular chamber dimension is normal. Right ventricular systolic function is normal. Linear artifact in right ventricle suggestive of catheter(s), pacemaker lead(s), or ICD lead(s). Left Atria Left atrial chamber dimension is normal. Right Atria Right atrial chamber dimension is normal. Linear artifact in the right atrium suggestive of catheter(s), pacemaker lead(s), or ICD lead(s). Aortic Valve The aortic valve is not well visualized. There is no aortic valve stenosis. There is no aortic valve regurgitation. Pulmonic Valve The pulmonic valve is not well visualized. There is trace pulmonic regurgitation. Mitral Valve The mitral valve has normal leaflets. There is mild mitral valve regurgitation. The mitral valve annulus is mildly calcified. Tricuspid Valve The tricuspid valve leaflets are normal. There is mild tricuspid valve regurgitation. Mild pulmonary hypertension, estimated pulmonary arterial systolic pressure is 37 mmHg. Pericardium/Pleural The pericardium appears epicardial fat pad. There is small pericardial effusion. Inferior Vena Cava Normal inferior vena cava with >50% collapse upon inspiration consistent with normal right atrial pressure, 5 mmHg. Aorta The aortic root size at the sinus of Valsalva is normal. There is mild aortic atherosclerosis. Left Ventricular Outflow Tract Name Value Normal LVOT 2D LVOT Diameter 2.3 cm LVOT Doppler LVOT Peak Gradient 5 mmHg LVOT Mean Gradient
[2021-12-03] MEDS: SACUBITRIL/VALSARTAN 49-51 MG TABLET 1 TABLET PO ×2 (00:09→08:12)
[2021-12-03] MEDS: carvediloL 12.5 MG TABLET PO ×2 (00:09→08:12)
[2021-12-03 01:02] LABS: Troponin I < 0.012 ng/mL (0.000-0.034)
[2021-12-03 05:00] LABS: Basophils Percent Auto 0.5 % (0.2-1.2); Eosinophils Absolute Auto 0.1 K/mm3 (0-0.3); Eosinophils Percent Auto 1.8 % (0-4.4); Hematocrit 32.4 % (42.0-52.0); Hemoglobin 10.1 g/dL (14.0-18.0); Immature Granulocyte Absolute 0.02 K/mm3 (0.00-0.031); Immature Granulocyte Percent A 0.3 % (0-0.5); Lymphocytes Absolute Auto 0.96 K/mm3 (0.9-3.2); Mean Corpuscular HGB Conc 31.2 g/dl (32-36); Mean Corpuscular Hemoglobin 31.5 pg (26-34); Mean Corpuscular Volume 100.9 fl (80-100); Mean Platelet Volume 10.6 fl (7.4-10.4); Monocytes Absolute Auto 0.8 K/mm3 (0.1-0.6); Monocytes Percent Auto 12.7 % (2.6-8.5); Neutrophils Absolute Auto 4.1 K/mm3 (1.3-6.7); Neutrophils Percent Auto 68.7 % (45.5-73.1); Platelet Count Result 168 k/mm3 (150-375); Red Blood Count 3.21 M/mm3 (4.6-6.20); Red Cell Distribution Width 12.7 % (11.5-14.5)
[2021-12-03 05:19] LABS: Anion Gap 3 mmol/L (8-16); Blood Urea Nitrogen 16 mg/dL (9-20); Calcium 7.9 mg/dL (8.4-10.2); Carbon Dioxide 28 mmol/L (22-30); Chloride 106 mmol/L (98-107); Estimated CRCL calculation 48 ml/min; Estimated Glomerular Filt Rate > 60; Glucose 104 mg/dL (65-110); Magnesium 1.8 mg/dL (1.6-2.3); Sodium 137 mmol/L (137-145)
[2021-12-03 07:45] LABS: Glucose Point of Care 113 mg/dl (65-105)
[2021-12-03] MEDS: SPIRONOLACTONE 12.5 MG TABLET PO (08:11)
[2021-12-03] MEDS: FINASTERIDE 5 MG TABLET PO (08:12)
[2021-12-03] MEDS: GLIMEPIRIDE 1 MG TABLET PO (08:12)
[2021-12-03] MEDS: ENOXAPARIN 40 MG/0.4 ML SYRINGE SUB-Q (08:12)
[2021-12-03] MEDS: ASPIRIN 81 MG CHEWABLE TABLET PO (08:12)
[2021-12-03] MEDS: OMEGA 3 POLYUNSAT FATTY ACIDS 1 GM CAP 2 GM PO ×2 (08:12→17:28)
--- NOTE | 2021-12-03 08:42 | PM.IMPN ---
Subjective Date/time seen: 12/03/21 08:42 Objective Data Vital Signs Vital Signs: Vital Signs - 24 hr 12/02/21 15:01 12/02/21 16:29 12/02/21 16:29 Temperature Pulse Rate 65 66 68 Respiratory Rate 18 Blood Pressure 100/38 L 93/48 L 84/56 L Pulse Oximetry 99 Oxygen Delivery Room Air 12/02/21 16:29 12/02/21 18:11 12/02/21 18:16 Temperature Pulse Rate 70 69 68 Respiratory Rate 18 19 Blood Pressure 100/56 L 113/66 117/69 Pulse Oximetry Oxygen Delivery 12/02/21 19:00 12/02/21 19:15 12/02/21 19:30 Temperature Pulse Rate 65 67 67 Respiratory Rate 20 14 13 Blood Pressure Pulse Oximetry 99 99 Oxygen Delivery 12/02/21 19:45 12/02/21 20:01 12/02/21 20:15 Temperature Pulse Rate 71 70 79 Respiratory Rate 21 H 14 13 Blood Pressure Pulse Oximetry 98 99 99 Oxygen Delivery 12/02/21 20:34 12/02/21 20:45 12/02/21 21:00 Temperature 97.5 F L Pulse Rate 72 65 Respiratory Rate 20 18 Blood Pressure 111/69 142/63 H Pulse Oximetry 98 100 Oxygen Delivery Room Air 12/02/21 20:54 12/02/21 22:00 12/02/21 23:58 Temperature 98.2 F Pulse Rate 87 74 75 Respiratory Rate 20 Blood Pressure 125/63 Pulse Oximetry 100 Oxygen Delivery 12/03/21 00:09 12/03/21 00:00 12/03/21 00:00 Temperature Pulse Rate 71 71 Respiratory Rate Blood Pressure Pulse Oximetry Oxygen Delivery Room Air 12/03/21 02:00 12/03/21 04:00 12/03/21 04:00 Temperature 97.7 F Pulse Rate 73 79 79 Respiratory Rate 20 Blood Pressure 106/59 L Pulse Oximetry 99 Oxygen Delivery 12/03/21 04:00 12/03/21 04:00 12/03/21 05:59 Temperature Pulse Rate 71 75 Respiratory Rate Blood Pressure Pulse Oximetry Oxygen Delivery Room Air 12/03/21 08:00 12/03/21 08:00 Temperature 98.5 F Pulse Rate 72 Respiratory Rate 15 Blood Pressure 116/65 Pulse Oximetry 98 Oxygen Delivery Room Air Intake/Output Intake/Output: Intake & Output 11/30/21 12/01/21 12/02/21 12/03/21 23:59 23:59 23:59 23:59 Intake Total 50 Output Total 1250 425 Balance -1200 -425 Meds/Results Medications: Active Medications Generic Name Dose Route Start Last Admin Trade Name Freq PRN Reason Stop Dose Admin Acetaminophen 650 mg 12/02/21 18:22 Acetaminophen 325 Mg Tablet PO Q4H PRN Mild Pain (1-3) or Fever Aspirin 81 mg 12/03/21 09:00 12/03/21 08:12 Aspirin 81 Mg Chewable Tablet PO 81 mg DAILY RENAY Administration Carvedilol 12.5 mg 12/02/21 23:45 12/03/21 08:12 Carvedilol 12.5 Mg Tablet PO 12.5 mg Q12HR RENAY Administration Dextrose 12.5 gm 12/02/21 23:32 Dextrose 50% 25 Gm/50 Ml Syringe IV PUSH PRN PRN Hypoglycemia Protocol Enoxaparin Sodium 40 mg 12/03/21 09:00 12/03/21 08:12 Enoxaparin 40 Mg/0.4 Ml Syringe SUB-Q 40 mg DAILY RENAY Administration Finasteride 5 mg 12/03/21 09:00 12/03/21 08:12 Finasteride 5 Mg Tablet PO 5 mg DAILY RENAY Administration Fish Oil 2 gm 12/03/21 09:00 12/03/21 08:12 [place] 3 Polyunsat Fatty Acids 1 Gm Cap PO 2 gm BID RENAY Administration Glimepiride 1 mg 12/03/21 08:00 12/03/21 08:12 Glimepiride 1 Mg Tablet PO 1 mg DAILY@0800 RENAY Administration Glucagon 1 mg 12/02/21 23:32 Glucagon For Inj 1 Mg Vial IM PRN PRN Hypoglycemia Protocol Glucose 15 gm 12/02/21 23:32 Glucose Oral Gel 15 Gm Of Glucse In 37.5 Gm Tube PO PRN PRN Hypoglycemia Protocol Ceftriaxone Sodium/Dextrose 1 gm in 50 mls @ 100 mls/hr 12/02/21 21:00 12/02/21 22:33 Rocephin 1 Gm/D5w 50 Ml IVPB Infused HS RENAY Infusion Dextrose 1,000 mls @ 100 mls/hr 12/02/21 23:32 Dextrose 5% 1,000 Ml IVPB PRN PRN Hypoglycemia Protocol Lovastatin 40 mg 12/03/21 18:00 Lovastatin 20 Mg Tablet PO QPM RENAY Ondansetron HCl 4 mg 12/02/21 18:22 Ondansetron Inj 4 Mg/2 Ml Vial IV PUSH Q
[2021-12-03 12:13] LABS: Glucose Point of Care 225 mg/dl (65-105)
[2021-12-03 16:49] LABS: Glucose Point of Care 154 mg/dl (65-105)
[2021-12-03] MEDS: LOVASTATIN 20 MG TABLET 40 MG PO (17:28)
--- NOTE | 2021-12-03 17:32 | PM.DS ---
DS: Admitting Diagnosis Discharge Date 12/03/21 Admitting Diagnosis Syncope DS: Discharge Diagnosis Discharge Diagnosis (1) Syncope: Code(s): R55 - Syncope and collapse Status: Acute Assessment and Plan: Device interrogated reporting heart rate drop 70s to 50s 1 syncopal episode occurred. Likely 2/2 to vasovagal episode as patient was nauseated. Patient denied any hx of having his ICD shock him in the past. Troponin negative. CTA chest no PE. Echo shows no , mild pHTN and grade I diastolic dysfunction. Patient is hemodynamically stable and currently denies any chest pain, shortness of breath, dizziness or lightheadedness. Has established care with Dr. Cotres of the Cardiology group and has an appointment in the next few weeks. -Follow up outpatient with Cardiology -Discharge to home -Follow up with PCP in a week (2) Hyperkalemia: Code(s): E87.5 - Hyperkalemia Status: Acute Assessment and Plan: Initially 5.5 repeat x2 were normal. Resolved. (3) Type 2 diabetes mellitus with diabetic cataract: Code(s): E11.36 - Type 2 diabetes mellitus with diabetic cataract Status: Acute Assessment and Plan: Will resume patient's home medications except for metformin since patient did have contrast with his CTA. Metformin will be held for 48 hours. Discussed with patient who verbalized understanding of the plan. (4) Chronic systolic (congestive) heart failure: Code(s): I50.22 - Chronic systolic (congestive) heart failure Status: Acute Assessment and Plan: Patient appears euvolemic at this point time. Will resume all home medications for discharge. (5) Macrocytic anemia: Code(s): D53.9 - Nutritional anemia, unspecified Status: Acute Assessment and Plan: New microcytic anemia in the setting of treatment for bladder cancer recently diagnosed. No evidence of bleeding. Will need workup outpatient by PCP. (6) Cancer of overlapping sites of bladder: Code(s): C67.8 - Malignant neoplasm of overlapping sites of bladder Status: Acute Assessment and Plan: Currently undergoing treatment and is scheduled for a repeat cystoscopy. (7) Mixed hyperlipidemia: Code(s): E78.2 - Mixed hyperlipidemia Status: Acute Assessment and Plan: Continue statin. (8) Urinary tract infection: Code(s): N39.0 - Urinary tract infection, site not specified Status: Acute Assessment and Plan: UA w/ leukocyte esterase and urine culture growing gram negative rods. Will discharge patient with levofloxacin for a total of 7 days of treatment. 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 Patient denies remembering anything. Troponin was negative. Patient had CTA chest that showed no PE. EKG appears similar to previous EKG w/ no ST segment or T wave changes. Echo showed no aortic stenosis, mild pulmonary hypertension and grade I diastolic dysfunction. Orthostatics were negative. Patient ICD was interrogated and showed a sudden decrease in heart rate from 70s to 50s at the time of loss of consciousness. The ICD did not shock the patient. Patient urine with leukocyte esterase and preliminary culture growing gram negative rods. Given recent treatment for bladder cancer and history of BPH, ceftriaxone was started. Patient given two dose and discharged with levofloxacin for a total of 7 days treatment. Time Spent with Patient Time attestation: Total time spent providing and/or coordinating discharge services: DS: Data Data Completed and Pending Labs on day of discharge: Labs from last 24 hours 12/03/21
== END 2021-12-03 19:50 | disposition home or self-care (01) ==
LOC: ANHED 18:33 → ANHIMU 20:03
PROVIDERS: Nurse Practitioner Adult Health; Admitting Provider Family Medicine; Emergency Provider Emergency Medicine; PCP Family Medicine Adolescent Medicine; Visit Provider Family Medicine
DX: R55 Syncope and collapse (principal); E87.5 Hyperkalemia; N39.0 Urinary tract infection, site not specified; C67.8 Malignant neoplasm of overlapping sites of bladder; I11.0 Hypertensive heart disease with heart failure; I50.22 Chronic systolic (congestive) heart failure; E11.36 Type 2 diabetes mellitus with diabetic cataract; D53.9 Nutritional anemia, unspecified; I50.9 Heart failure, unspecified; I25.10 Atherosclerotic heart disease of native coronary artery without angina pectoris; I42.9 Cardiomyopathy, unspecified; N40.0 Benign prostatic hyperplasia without lower urinary tract symptoms; E78.5 Hyperlipidemia, unspecified; Z95.810 Presence of automatic (implantable) cardiac defibrillator; Z95.5 Presence of coronary angioplasty implant and graft; Z79.84 Long term (current) use of oral hypoglycemic drugs; Z79.82 Long term (current) use of aspirin; Z92.21 Personal history of antineoplastic chemotherapy; Z20.822 Contact with and (suspected) exposure to COVID-19
CPT/HCPCS: 36415; 36600; 71045; 71275; 80048; 80053; 81001; 82805; 82948; 83605; 83735; 84484; 85025; 85380; 85610; 85730; 87040; 87077; 87086; 87186; 93005; 93306; 96361; 96365; 96366; 96372; 96375; 99285; A9270; C9803; G0378; J0696; J1650; J1815; J7030; Q9967; U0003; U0005

== ENCOUNTER 2022-04-07 12:29 | Outpatient (CLI) | payer OTHER, SELFPAY ==
[2022-04-07 13:32] LABS: Anion Gap 14 mmol/L (8-16); Blood Urea Nitrogen 24 mg/dL (9-20); Calcium 8.8 mg/dL (8.4-10.2); Carbon Dioxide 26 mmol/L (22-30); Chloride 100 mmol/L (98-107); Estimated Glomerular Filt Rate 59; Glucose 187 mg/dL (65-110); Potassium 4.8 mmol/L (3.4-5.0); Sodium 140 mmol/L (137-145)
== END 2022-04-07 12:30 | disposition home or self-care (01) ==
LOC: ANHSURGERY 12:36
PROVIDERS: Anesthesiology; PCP Family Medicine Adolescent Medicine; Visit Provider Urology
DX: E11.36 Type 2 diabetes mellitus with diabetic cataract (principal); Z01.818 Encounter for other preprocedural examination
CPT/HCPCS: 36415; 80048

== ENCOUNTER 2022-04-13 01:46 | Day surgery (SDC) | payer OTHER, SELFPAY ==
[2022-04-06 13:23] VITALS: BMI 26.5
--- NOTE | 2022-04-06 13:30 | PC.NURSE ---
PRE-OP INSTRUCTIONS, PLEASE READ CAREFULLY Report to the Outpatient Waiting Room, entrance under the green pavilion located off [facility], at time _0900_ on date _04/13/22_. OR Time: _1100_. Time changes happen often and if your time is changed the preop area will call you the afternoon before. - You and your visitor will be asked to self-screen and do not enter if you have any COVID symptoms. - Only one visitor and NO children visitors are allowed at this time. - The patient visitor is requested to leave or wait in car when not with patient due to restrictions. - A mask is required within the hospital. Patients may have clear liquids (water, carbonated beverages, clear teas, apple juice) until 3 hours prior to surgery (0800 AM) with a maximum of 20 ounces. - No food from midnight until time of surgery Take the following medications with a SIP of water the morning of surgery: CARVEDILOL Medications to discontinue _ASPIRIN 5 DAYS PRIOR TO SURGERY, Date to take last dose 04/07/22_ Medications to discontinue per ANESTHESIA - _MULTIVITAMIN 3 DAYS PRIOR TO SURGERY, Date to take last dose 04/09/22_ Please no deodorant, or body powder the day of surgery. No jewelry (including any body piercings) or valuables the day of surgery, leave them at home. Please take a shower or bath the night before, or the morning of, surgery with an antibacterial soap. Wear comfortable, loose fitting clothing. - Jewelry must be removed prior to entering the operating room. Rings and piercings that are not removed may be cut off. - The hospital will not accept responsibility for valuables. - Please leave all valuables, including medications, at home the day of surgery. If you are going home after surgery, a licensed regional truck driver must drive you home. - NO public transportation without another adult. - We recommend that an adult stay with you for 24 hours following discharge. - We also recommend that you do not drive, make important decision, drink alcoholic beverages, or take any drugs that were not prescribed by your health care provider for at least 24 hours after your discharge time. Follow any additional instructions given to you from your surgeon. If you or anyone in your household have experienced Covid symptoms in the past week, please notify your surgeon or the nurse liaison at the phone number below for possible testing. Telephone instructions given to ____PT and asked if any additional questions and then verbalized understanding. Patient advised to call surgeon office or pre surgery nurse liaison [phone] if any additional questions.
--- NOTE | 2022-04-12 13:52 | WPDANESEPPF ---
Anes - Initial Pre Proc Eval Procedure: Operation Date: 04/13/22 11:00 Proposed Procedures p Trans Urethral Resection Bladder Tumor with Gemcitabine Instillation - Charan Randle MD s Cystoscopy, Bilateral Retrograde Pyelography, - Charan Randle MD Date/Time: 04/12/22 13:52 Surgeon: Charan Randle MD Pre Op Diagnosis: pers hx bladder CA Patient Data Age: 76 Gender: M Height: 1.65 m Weight: 72.27 kg Allergies Allergy/AdvReac Type Severity Reaction Status Date / Time No Known Allergies Allergy Verified 04/13/22 09:13 Home Medications Medication Instructions Recorded Confirmed Type aspirin 81 mg chewable tablet 81 mg PO DAILY 08/07/19 04/13/22 History glimepiride 1 mg tablet (Amaryl) 1 mg PO DAILY 08/07/19 04/13/22 History lovastatin 40 mg tablet 40 mg PO QPM 08/07/19 04/13/22 History carvedilol 12.5 mg tablet 12.5 mg PO BID 01/19/20 04/13/22 History icosapent ethyl 1 gram capsule 2 g PO BID 01/19/20 04/13/22 History (Vascepa) sacubitril 49 mg-valsartan 51 mg 1 tablet PO BID 01/19/20 04/13/22 History tablet (Entresto) spironolactone 25 mg tablet 12.5 mg PO DAILY 01/19/20 04/13/22 History finasteride 5 mg tablet 5 mg PO DAILY 07/21/21 04/13/22 History metformin 500 mg tablet,extended See Rx Instructions .Route 01/11/22 04/13/22 Rx release 24 hr .COMPLEX #360 tabs multivitamin 1 tablet PO DAILY 04/06/22 04/13/22 History Patient hx anesthesia problems: none Family hx anesthesia problems: none Results Review: All pre-operative results and documents have been reviewed as part of the pre-operative evaluation. [facility] Past Medical History Medical History (Updated 04/12/22 @ 07:50 by Marko Muñiz MD) Cancer of overlapping sites of bladder Cardiomyopathy Diagnosed July 2019 CHF (congestive heart failure) EF 30% History of skin cancer basal cell, squamous cell Hyperlipidemia Hypertension ICD (implantable cardioverter-defibrillator) in place Vasovagal syncope Surgical History Surgical History Hx of heart artery stent Family History Family History Mother Diabetes mellitus Hypertension Alzheimer disease CAD (coronary artery disease) Father Hypertension CAD (coronary artery disease) Acute myocardial infarction Social History Social History Social History: , retired Smoking status: Never smoker Second hand tobacco smoke exposure: No Alcohol intake: never Substance use: never Substance use type: does not use Living arrangements: with family Gender identity (if verbalized by the patient): Male Sexual Orientation (if Verbalized by the Patient): Straight or Heterosexual Spiritual care concerns: No Agree to blood products: Yes Anes - Eval Final PreProcedure Day of Procedure 04/12/22 13:52 Patient weight: overweight Heart: regular rate and rhythm Lungs: clear to auscultation and normal air movement Airway: Mallampati scale class II Neurological: alert and oriented Last oral intake: >/= 8 hours ASA classification: IV Emergent: no Anesthetic plan: proceed Anesthesia type and monitoring: general LMA and standard monitoring Results Review: All pre-operative results and documents have been reviewed as part of the pre-operative evaluation. Informed Consent: The patient's anesthetic plan and its attendant risks and benefits were discussed with the patient/family/POA. Questions were solicited and answers provided to the satisfaction of the patient/family/POA.
[2022-04-13] VITALS (11 sets, daily range): BP systolic 104–139; BP diastolic 48–82; PULSE 56–67; RESP 12–16; TEMP 36.3–36.5; O2SAT 98–100
--- NOTE | ~2022-04-13 | XR_ITS ---
EXAMINATION: XR retrograde pyelogram BI DATE: 04/13/2022 11:10 INDICATION: Bladder cancer TECHNIQUE: 128 fluoroscopic images of the abdomen and pelvis were obtained during procedure performed by Dr. Randle. Radiologist was not present for the imaging or procedure. The amount of fluoroscopy t dima used during this procedure was 0.4 minutes. COMPARISON: None. FINDINGS: Cannulation and retrograde contrast injection into the bilateral ureters demonstrates normal appearan ce to the bilateral renal collecting systems and ureters. No hydronephrosis, filling defects to sugge st urolithiasis or urothelial irregularities. IMPRESSION: 1. Normal bilateral retrograde pyelograms. See procedure note for further detail. Reviewed, dictated and finalized at location A. IMPRESSION: 1. Normal bilateral retrograde pyelograms. See procedure note for further theo [place]
--- NOTE | 2022-04-13 06:22 | WPDHPUPDATE1 ---
History and Physical Update Update Date/Time: 04/13/22 06:22 History and Physical has been reviewed, including an updated exam of the patient. There are NO changes in the patient's condition. Risks, benefits, and alternatives have been discussed and questions answered. Patient agrees to proceed with procedure.
[2022-04-13] MEDS: LACTATED RINGERS 1,000 ML 30 ML IV CONT (09:35)
[2022-04-13 09:48] LABS: Glucose Point of Care 139 mg/dl (65-105)
[2022-04-13] MEDS: ceFAZolin 2 GM/D5W 50 ML 2 GM/50 ML BAG IVPB (10:37)
--- NOTE | 2022-04-13 11:04 | W.PM.PROC2 ---
Procedure Note - Detailed Date of Procedure 04/13/22 Pre-op Diagnosis History of bladder CA Post-op Diagnosis Same Procedure Performed TURBT (small ), cystoscopy with bilateral retrograde pyelography Surgeon Charan Randle MD Description of Procedure patient is brought the op suite where he was prepped draped in routine sterile fashion while in dorsal lithotomy position after the uneventful induction of a general LMA anesthetic. I 1st placed a 24 F resectoscope into his bladder. There was no urethral strictures. He has minimal lateral lobe hyperplasia with early obstruction of the prostatic urethra. As a small median lobe. Bladder mucosa shows an area of unusual hyperemia in the posterior bladder midline extending from approximately 3 cm above the trigone to the dome of the bladder. 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 I resected the central portion of this with the loop electrode and cauterized that resected site in the additional areas of hyperemia with a 5 mm rollerball. The remainder of the bladder mucosa appeared normal. He had a single orthotopic ureteral orifice with clear efflux bilaterally. I replaced resectoscope with a cystoscope and did bilateral retrograde pyelograms, both of which appeared normal without obstruction filling defects or other identifiable pathology in the collecting systems or ureters bilaterally. This point the cystoscope was removed and a 18 F urethral catheter was placed to drainage. Because of the high likelihood this represents a neoplastic process I did decide to go ahead with gemcitabine installation into the bladder. Drains Yes Packing No Pathology Yes Complications No immediate complications Condition Stable
--- NOTE | 2022-04-13 11:07 | W.PM.PROC2 ---
Procedure Note - Detailed Date of Procedure 04/13/22 Pre-op Diagnosis History of bladder CA Post-op Diagnosis Same Procedure Performed Gemcitabine instillation into bladder Surgeon Charan Randle MD Anesthesia None Description of Procedure With the patient in the supine position, a 16F Sherman catheter is placed using sterile technique. Using a protective facemask, gown and double layer of gloves Gemcitabine 2gm in 100cc saline is administered through the catheter/into the bladder. The catheter is then plugged. Patient was instructed to lie supine x20min, then to roll both the left and right x20 min. each. Total dwell time will be 60 min., after which the bladder will be drained and catheter removed. Drains Yes Packing No Pathology None sent Complications No immediate complications Condition Stable
[2022-04-13] MEDS: SODIUM CHLORIDE 0.9% IV 23.7 ML, GEMCITABINE HCL 1,000 MG BLADDER ×2 (11:21)
[2022-04-13 11:32] LABS: Glucose Point of Care 138 mg/dl (65-105)
[2022-04-13] MEDS: fentaNYL CITRATE INJ (*CRX) 100 MCG/2 ML VIAL 25 MCG IV PUSH ×2 (11:39→11:45)
[2022-04-13] MEDS: oxyCODONE HCL (*CRX) 5 MG TAB IR PO (13:11)
== END 2022-04-13 13:35 | disposition home or self-care (01) ==
PROVIDERS: PCP Family Medicine Adolescent Medicine; Visit Provider Urology
PROC: 0TBB8ZZ Excision of Bladder, Via Natural or Artificial Opening Endoscopic (ICD-10-PCS; CPT 52234; principal; 2022-04-13 11:00)
PROC: (CPT 52352; 2022-04-13 11:00)
DX: N30.90 Cystitis, unspecified without hematuria (principal); Z85.51 Personal history of malignant neoplasm of bladder
CPT/HCPCS: 52234; 51720; 36415; 74420; 80048; 82948; 88305; A9270; C1758; J0690; J1100; J2405; J2704; J3010; J7120; J9201

== ENCOUNTER 2022-05-22 01:52 | Day surgery (SDC) | payer OTHER, SELFPAY ==
[2022-05-11 13:52] VITALS: BMI 26.6
[2022-05-22 12:07] VITALS: BP 149/68; PULSE 71; RESP 18; TEMP 36.5; O2SAT 99; BMI 25.8
[2022-05-22] MEDS: LACTATED RINGERS 1,000 ML 150 ML IV CONT (12:27)
[2022-05-22 12:31] LABS: Glucose Point of Care 139 mg/dl (65-105)
--- NOTE | 2022-05-22 13:09 | PM.HPGS ---
History of Present Illness History of Present Illness Consent: Risks, benefits, and alternatives have been discussed and questions answered. Patient agrees to proceed with procedure. Chief complaint: Hx of colon polyps Narrative: Kelechi Perry is a 76 year old male Presents for screening colonoscopy. Patient has a history of colon polyps in 2016. He presents today for follow-up colonoscopy. Patient's current weight appetite bowel movements are normal. He denies abdominal pain. He has had no bleeding. Family history noncontributory. Review of Systems Review of Systems: Review of systems noncontributory. [facility] Past Medical History Medical History (Updated 05/22/22 @ 13:10 by Abad Herring MD) Cancer of overlapping sites of bladder Cardiomyopathy Diagnosed July 2019 CHF (congestive heart failure) EF 30% History of skin cancer basal cell, squamous cell Hyperlipidemia Hypertension ICD (implantable cardioverter-defibrillator) in place Vasovagal syncope Surgical History Surgical History Hx of heart artery stent Family History Family History Mother Diabetes mellitus Hypertension Alzheimer disease CAD (coronary artery disease) Father Hypertension CAD (coronary artery disease) Acute myocardial infarction Social History Social History Social History: , retired Smoking status: Never smoker Second hand tobacco smoke exposure: No Alcohol intake: never Substance use: never Substance use type: does not use Living arrangements: with family Gender identity (if verbalized by the patient): Male Sexual Orientation (if Verbalized by the Patient): Straight or Heterosexual Spiritual care concerns: No Agree to blood products: Yes Meds Home Medications and Allergies Home Medications Medication Instructions Recorded Confirmed Type aspirin 81 mg chewable tablet 81 mg PO DAILY 08/07/19 05/22/22 History glimepiride 1 mg tablet (Amaryl) 1 mg PO DAILY 08/07/19 05/22/22 History carvedilol 12.5 mg tablet 12.5 mg PO BID 01/19/20 05/22/22 History icosapent ethyl 1 gram capsule 2 g PO BID 01/19/20 05/22/22 History (Vascepa) sacubitril 49 mg-valsartan 51 mg 1 tablet PO BID 01/19/20 05/22/22 History tablet (Entresto) spironolactone 25 mg tablet 12.5 mg PO DAILY 01/19/20 05/22/22 History finasteride 5 mg tablet 5 mg PO DAILY 07/21/21 05/22/22 History metformin 500 mg tablet,extended See Rx Instructions .Route 01/11/22 05/22/22 Rx release 24 hr .COMPLEX #360 tabs multivitamin 1 tablet PO DAILY 04/06/22 05/22/22 History lovastatin 40 mg tablet 40 mg PO QPM #90 tabs 05/08/22 05/22/22 Rx sulfamethoxazole 800 1 tablet PO BID 05/11/22 05/22/22 History mg-trimethoprim 160 mg tablet Allergies Allergy/AdvReac Type Severity Reaction Status Date / Time No Known Allergies Allergy Verified 05/22/22 12:13 Vital Signs Vital Signs - 24 hr 05/22/22 12:07 Temperature 97.7 F Pulse Rate 71 Respiratory Rate 18 Blood Pressure 149/68 H Pulse Oximetry 99 Oxygen Delivery Room Air Exam Narrative: Physical exam reveals patient be alert. Vital signs stable. HEENT exam is unremarkable. Patient is anicteric. Lungs are clear to auscultation and percussion. Heart is without murmur or extra sounds. Abdomen bowel sounds present soft nontender with no organomegaly. Digital external rectal exam is normal. Assessment and Plan Assessment and plan (1) History of colon polyps: Code(s): Z86.010 - Personal history of colonic polyps Status: Acute Assessment and Plan: Patient presents for screening colonoscopy. He has a history of colon polyps in 2016. Further recommendations will be given after endoscopy.
--- NOTE | 2022-05-22 13:18 | WPDANESEPPF ---
Anes - Initial Pre Proc Eval Procedure: Operation Date: 05/22/22 13:30 Proposed Procedures p Screening Colonoscopy - Abad Herring MD Date/Time: 05/22/22 13:18 Surgeon: Abad Herring MD Pre Op Diagnosis: Hx of colon polyps Patient Data Age: 76 Gender: M Height: 1.65 m Weight: 70.4 kg Last Vital Signs Temp 97.7 F 05/22/22 12:07 Pulse 71 05/22/22 12:07 Resp 18 05/22/22 12:07 BP 149/68 H 05/22/22 12:07 Pulse Ox 99 05/22/22 12:07 O2 Del Method Room Air 05/22/22 12:07 Allergies Allergy/AdvReac Type Severity Reaction Status Date / Time No Known Allergies Allergy Verified 05/22/22 12:13 Home Medications Medication Instructions Recorded Confirmed Type aspirin 81 mg chewable tablet 81 mg PO DAILY 08/07/19 05/22/22 History glimepiride 1 mg tablet (Amaryl) 1 mg PO DAILY 08/07/19 05/22/22 History carvedilol 12.5 mg tablet 12.5 mg PO BID 01/19/20 05/22/22 History icosapent ethyl 1 gram capsule 2 g PO BID 01/19/20 05/22/22 History (Vascepa) sacubitril 49 mg-valsartan 51 mg 1 tablet PO BID 01/19/20 05/22/22 History tablet (Entresto) spironolactone 25 mg tablet 12.5 mg PO DAILY 01/19/20 05/22/22 History finasteride 5 mg tablet 5 mg PO DAILY 07/21/21 05/22/22 History metformin 500 mg tablet,extended See Rx Instructions .Route 01/11/22 05/22/22 Rx release 24 hr .COMPLEX #360 tabs multivitamin 1 tablet PO DAILY 04/06/22 05/22/22 History lovastatin 40 mg tablet 40 mg PO QPM #90 tabs 05/08/22 05/22/22 Rx sulfamethoxazole 800 1 tablet PO BID 05/11/22 05/22/22 History mg-trimethoprim 160 mg tablet Laboratory Tests 05/22/22 12:22 POC Capillary Glucose 139 mg/dl H mg/dl (65-105) Patient hx anesthesia problems: none Family hx anesthesia problems: none Results Review: All pre-operative results and documents have been reviewed as part of the pre-operative evaluation. [facility] Past Medical History Medical History (Updated 05/22/22 @ 13:10 by Abad Herring MD) Cancer of overlapping sites of bladder Cardiomyopathy Diagnosed July 2019 CHF (congestive heart failure) EF 30% History of skin cancer basal cell, squamous cell Hyperlipidemia Hypertension ICD (implantable cardioverter-defibrillator) in place Vasovagal syncope Surgical History Surgical History Hx of heart artery stent Family History Family History Mother Diabetes mellitus Hypertension Alzheimer disease CAD (coronary artery disease) Father Hypertension CAD (coronary artery disease) Acute myocardial infarction Social History Social History Social History: , retired Smoking status: Never smoker Second hand tobacco smoke exposure: No Alcohol intake: never Substance use: never Substance use type: does not use Living arrangements: with family Gender identity (if verbalized by the patient): Male Sexual Orientation (if Verbalized by the Patient): Straight or Heterosexual Spiritual care concerns: No Agree to blood products: Yes Anes - Eval Final PreProcedure Day of Procedure 05/22/22 13:18 Patient weight: normal Heart: regular rate and rhythm Lungs: clear to auscultation Airway: Mallampati scale class II Neurological: alert and oriented Last oral intake: >/= 8 hours ASA classification: IV Emergent: no Anesthetic plan: proceed Anesthesia type and monitoring: general GIVS and standard monitoring Results Review: All pre-operative results and documents have been reviewed as part of the pre-operative evaluation. Informed Consent: The patient's anesthetic plan and its attendant risks and benefits were discussed with the patient/family/POA. Questions were solicited and answers provided to the satisfaction of the patient/family/POA.
[2022-05-22 13:56] VITALS: BP 104/67; PULSE 75; RESP 18; O2SAT 98
[2022-05-22 14:06] VITALS: BP 99/70; PULSE 70; RESP 18; O2SAT 99
[2022-05-22 14:16] VITALS: BP 118/73; PULSE 74; RESP 18; O2SAT 100
== END 2022-05-22 14:44 | disposition home or self-care (01) ==
PROVIDERS: PCP Family Medicine Adolescent Medicine; Visit Provider Internal Medicine Gastroenterology
PROC: 0DJD8ZZ Inspection of Lower Intestinal Tract, Via Natural or Artificial Opening Endoscopic (ICD-10-PCS; CPT 45378; principal; 2022-05-22 13:30)
DX: Z12.11 Encounter for screening for malignant neoplasm of colon (principal); K64.8 Other hemorrhoids; K57.30 Diverticulosis of large intestine without perforation or abscess without bleeding; Z86.010 Personal history of colon polyps; I11.0 Hypertensive heart disease with heart failure; I50.9 Heart failure, unspecified; I42.9 Cardiomyopathy, unspecified; E78.5 Hyperlipidemia, unspecified; Z95.810 Presence of automatic (implantable) cardiac defibrillator; Z79.82 Long term (current) use of aspirin; Z79.84 Long term (current) use of oral hypoglycemic drugs; Z95.5 Presence of coronary angioplasty implant and graft
CPT/HCPCS: G0105; 82948; J2704; J7120

== ENCOUNTER 2022-09-21 12:36 | Outpatient (CLI) | payer OTHER, SELFPAY ==
[2022-09-21 13:17] LABS: Anion Gap 4 mmol/L (8-16); Blood Urea Nitrogen 20 mg/dL (9-20); Calcium 8.9 mg/dL (8.4-10.2); Carbon Dioxide 28 mmol/L (22-30); Chloride 101 mmol/L (98-107); Estimated Glomerular Filt Rate > 60; Glucose 178 mg/dL (65-110); Potassium 4.9 mmol/L (3.4-5.0); Sodium 133 mmol/L (137-145)
== END 2022-09-21 12:37 | disposition home or self-care (01) ==
LOC: ANHSURGERY 12:39
PROVIDERS: Anesthesiology; PCP Family Medicine Adolescent Medicine; Visit Provider Urology
DX: E11.29 Type 2 diabetes mellitus with other diabetic kidney complication (principal); Z01.818 Encounter for other preprocedural examination
CPT/HCPCS: 36415; 80048

== ENCOUNTER 2022-09-28 01:04 | Day surgery (SDC) | payer OTHER, SELFPAY ==
[2022-09-20 11:02] VITALS: BMI 27.5
--- NOTE | 2022-09-20 11:24 | PC.NURSE ---
Report to the Outpatient Waiting Room, entrance under the green pavilion located off [facility], at time __7:30AM on date __09/28/22 . Planned Procedure Time: _9:30AM . Time changes happen often and if your time is changed the preop area will call you the afternoon before. - You and your visitor will be asked to self-screen and do not enter if you have any COVID symptoms. - Only one visitor is requested with a max of two and NO children visitors are allowed at this time. - The patient visitor may be requested to leave or wait in car when not with patient due to distancing restrictions. - A mask is optional within the hospital at this time. Patients may have clear liquids (water, carbonated beverages, clear teas, apple juice) until 3 hours prior to surgery with a maximum of 20 ounces. - No food from midnight until time of surgery Take the following medications with a SIP of water the morning of surgery: ___CARVEDILOL DO NOT STOP ANY OF YOUR OTHER PRESCRIPTION MEDICATIONS PRIOR TO SURGERY ?EXCEPT THE FOLLOWING Medications to discontinue per physician ___HOLD ASPIRIN PER DR CHAPA, HOLD VITAMINS/SUPPLEMENTS 3 DAYS PRE-OP- LAST DOSE 09/24/22 Please no make-up, nail belarusian, hairspray, perfume, deodorant, or body powder the day of surgery. No jewelry (including any body piercings) or valuables the day of surgery, leave them at home. Please take a shower or bath the night before, or the morning of, surgery with an antibacterial soap. Wear comfortable, loose fitting clothing. Children are encouraged to wear pajamas. - Jewelry must be removed prior to entering the operating room. Rings and piercings that are not removed may be cut off. - The hospital will not accept responsibility for valuables. - Please leave all valuables, including medications, at home the day of surgery. If you are going home after surgery, a licensed hook up driver must drive you home. - NO public transportation without another adult if you receive anesthesia. - We recommend that an adult stay with you for 24 hours following discharge. - We also recommend that you do not drive, make important decision, drink alcoholic beverages, or take any drugs that were not prescribed by your health care provider for at least 24 hours after your discharge time. Follow any additional instructions given to you from your surgeon. If you or anyone in your household have experienced Covid symptoms in the past week, please notify your surgeon or the nurse liaison at the phone number below for possible testing. Telephone instructions given to __PATIENT and asked if any additional questions and then verbalized understanding. Patient advised to call surgeon office or pre surgery nurse liaison [phone] if any additional questions.
[2022-09-28] VITALS (9 sets, daily range): BP systolic 102–160; BP diastolic 47–80; PULSE 53–62; RESP 10–16; TEMP 36.2; O2SAT 98–100
--- NOTE | 2022-09-28 05:55 | WPDHPUPDATE1 ---
History and Physical Update Update Date/Time: 09/28/22 05:55 History and Physical has been reviewed, including an updated exam of the patient. There are NO changes in the patient's condition. Risks, benefits, and alternatives have been discussed and questions answered. Patient agrees to proceed with procedure.
--- NOTE | 2022-09-28 08:14 | WPDANESEPPF ---
Anes - Initial Pre Proc Eval Procedure: Operation Date: 09/28/22 09:30 Proposed Procedures p Trans Urethral Resection Bladder Tumor with Gemcitabine Instillation - Charan Randle MD Date/Time: 09/28/22 08:14 Surgeon: Charan Randle MD Pre Op Diagnosis: microscopic hematuria, pers hx bladd CA Patient Data Age: 77 Gender: M Height: 1.65 m Weight: 75 kg Allergies Allergy/AdvReac Type Severity Reaction Status Date / Time No Known Allergies Allergy Verified 09/28/22 08:02 Home Medications Medication Instructions Recorded Confirmed Type glimepiride 1 mg tablet (Amaryl) 1 mg PO QAM 08/07/19 09/28/22 History carvedilol 12.5 mg tablet 12.5 mg PO BID 01/19/20 09/28/22 History sacubitril 49 mg-valsartan 51 mg 1 tablet PO BID 01/19/20 09/28/22 History tablet (Entresto) spironolactone 25 mg tablet 12.5 mg PO QAM 01/19/20 09/28/22 History multivitamin 1 tablet PO DAILY 04/06/22 09/28/22 History lovastatin 40 mg tablet 40 mg PO QPM #90 tabs 05/08/22 09/28/22 Rx icosapent ethyl 1 gram capsule 2 g PO BID #90 caps 07/30/22 09/28/22 Rx (Vascepa) finasteride 5 mg tablet 5 mg PO DAILY #90 tabs 07/31/22 09/28/22 Rx aspirin 81 mg tablet,delayed 81 mg PO DAILY 09/20/22 09/28/22 History release fluorouracil 5 % topical cream 1 applic topical BID 09/20/22 09/28/22 History metformin 500 mg tablet,extended 2,000 mg PO QPM 09/20/22 09/28/22 History release 24 hr Patient hx anesthesia problems: none Family hx anesthesia problems: none Results Review: All pre-operative results and documents have been reviewed as part of the pre-operative evaluation. [facility] Past Medical History Medical History Cancer of overlapping sites of bladder Cardiomyopathy Diagnosed July 2019 CHF (congestive heart failure) EF 30% History of skin cancer basal cell, squamous cell Hyperlipidemia Hypertension ICD (implantable cardioverter-defibrillator) in place Vasovagal syncope Surgical History Surgical History Hx of heart artery stent Family History Family History Mother Diabetes mellitus Hypertension Alzheimer disease CAD (coronary artery disease) Father Hypertension CAD (coronary artery disease) Acute myocardial infarction Social History Social History Social History: , retired Smoking status: Never smoker Second hand tobacco smoke exposure: No Alcohol intake: never Substance use: never Substance use type: does not use Living arrangements: with family Additional living arrangements comments: Occupation/Education: retired Gender identity (if verbalized by the patient): Male Sexual Orientation (if Verbalized by the Patient): Straight or Heterosexual Spiritual care concerns: No Agree to blood products: Yes Anes - Eval Final PreProcedure Day of Procedure 09/28/22 08:14 Patient weight: overweight Heart: regular rate and rhythm (paced) Lungs: clear to auscultation Airway: Mallampati scale class II Neurological: alert and oriented Last oral intake: >/= 8 hours ASA classification: IV Emergent: no Anesthetic plan: proceed Anesthesia type and monitoring: general LMA and standard monitoring Results Review: All pre-operative results and documents have been reviewed as part of the pre-operative evaluation. Informed Consent: The patient's anesthetic plan and its attendant risks and benefits were discussed with the patient/family/POA. Questions were solicited and answers provided to the satisfaction of the patient/family/POA.
[2022-09-28 08:18] LABS: Glucose Point of Care 166 mg/dl (65-105)
[2022-09-28] MEDS: LACTATED RINGERS 1,000 ML 30 ML IV CONT (08:18)
[2022-09-28] MEDS: ceFAZolin 2 GM/D5W 50 ML 2 GM/50 ML BAG IVPB (09:04)
[2022-09-28] MEDS: LIDOCAINE HCL 2% GEL UROJET 10 ML PKG MUCOUS MEM (09:20)
--- NOTE | 2022-09-28 09:29 | P.OP_ITS ---
Procedure Note - Detailed Date of Procedure 09/28/22 Pre-op Diagnosis History of bladder cancer, possible CIS Post-op Diagnosis Same Procedure Performed TURBT (small) Surgeon Charan Randle MD Anesthesia General Description of Procedure The patient was brought to the operative suite where he is prepped and draped in a routine sterile fashion while in the dorsal lithotomy position. This is done after the uneventful administration of systemic sedation. 2% Xylocaine jelly is introduced intraurethrally and allowed to stand for an appropriate period of time. A 24F resectoscope sheath was placed in the bladder and the bladder is circumferentially inspected carefully. 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 This area is resected in its entirety with an attempt made to include detrusor muscle for pathological evaluation of invasion. The base and periphery of this resected side is cauterized with a loop electrode. All this was done with care to avoid cautery over the ureteral orifices. The bladder is emptied and the resectoscope was removed. The patient is taken to the recovery room having tolerated this procedure well. Urine Output 0 Packing No Pathology Yes Complications No immediate complications
--- NOTE | 2022-09-28 09:32 | P.OP_ITS ---
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 Using a protective facemask, gown and double layer of gloves Gemcitabine 2gm in 100cc saline is administered through the catheter/into the bladder. The catheter is then plugged. Patient was instructed to lie supine x20min, then to roll both the left and right x20 min. each. Total dwell time will be 60 min., after which the bladder will be drained and catheter removed. Urine Output 0 Drains No Packing No Pathology None sent
[2022-09-28] MEDS: SODIUM CHLORIDE 0.9% IV 23.7 ML, GEMCITABINE HCL 1,000 MG BLADDER ×2 (09:33)
[2022-09-28 09:39] LABS: Glucose Point of Care 174 mg/dl (65-105)
[2022-09-28] MEDS: SODIUM CHLORIDE 0.9% IV 50 ML BAG 150 ML IRRIGATION (10:35)
== END 2022-09-28 12:00 | disposition home or self-care (01) ==
PROVIDERS: PCP Family Medicine Adolescent Medicine; Visit Provider Urology
PROC: 0TBB8ZZ Excision of Bladder, Via Natural or Artificial Opening Endoscopic (ICD-10-PCS; CPT 52234; principal; 2022-09-28 09:30)
DX: Z08 Encounter for follow-up examination after completed treatment for malignant neoplasm (principal); D09.0 Carcinoma in situ of bladder; I11.0 Hypertensive heart disease with heart failure; I50.9 Heart failure, unspecified; I42.9 Cardiomyopathy, unspecified; E78.5 Hyperlipidemia, unspecified; Z95.5 Presence of coronary angioplasty implant and graft; Z95.810 Presence of automatic (implantable) cardiac defibrillator; Z79.84 Long term (current) use of oral hypoglycemic drugs; Z79.82 Long term (current) use of aspirin
CPT/HCPCS: 52234; 36415; 51720; 80048; 82948; 88305; 88342; J0690; J2405; J2704; J7120; J9201

== ENCOUNTER 2023-05-15 14:00 | Outpatient (CLI) | payer OTHER, SELFPAY ==
--- NOTE | ~2023-05-15 | CT_ITS ---
EXAMINATION: CT abdomen pelvis wo/w con DATE: 05/15/2023 14:47 INDICATION: Personal history of malignant neoplasm of the urinary bladder TECHNIQUE: Computed tomography (CT) of the abdomen and pelvis was performed without intravenous contr ast. CT of the abdomen and pelvis was then performed with a total of 130 mL Omnipaque 350 intravenous contrast using a double-bolus technique for simultaneous opacification of the renal parenchyma and r enal collecting system. The dose-length product (DLP) was 883.68 mGy-cm. Automated exposure control a nd iterative reconstruction technique were employed. COMPARISON: None FINDINGS: Minimal dependent atelectasis is present in the lung bases. The heart size is normal. Tiny cysts of the liver measure up to 3 mm. The spleen, pancreas, gallbladder, and adrenal glands are norm al. There is a 10 mm nonobstructing stone of the left kidney upper pole. There is mild atrophy of the kidneys. Cysts of the left kidney measure up to 10 mm. There is mild irregularity at the bladder bas e. No definite suspicious renal or urothelial lesion is identified. No pathologically enlarged abdomi nal or pelvic lymph nodes are identified. No free intraperitoneal gas or evidence of bowel obstructio n. The appendix is normal. There is moderate lumbar spondylosis at L5-S1. IMPRESSION: 1. No evidence of metastatic disease. 2. Mild irregularity at the base of the urinary bladder suspected to be related to the prostate or bl adder surgery. Reviewed, dictated and finalized at location B. [facility] IMPRESSION: 1. No evidence of metastatic disease. 2. Mild irregularity at the base of the urinary bladder suspected to be related to the prostate or bladder surgery.
== END 2023-05-15 14:01 | disposition home or self-care (01) ==
PROVIDERS: PCP Family Medicine Adolescent Medicine; Visit Provider Urology
DX: Z85.51 Personal history of malignant neoplasm of bladder (principal)
CPT/HCPCS: 74178; Q9967

== ENCOUNTER 2024-03-25 07:51 | Outpatient (CLI) | payer OTHER, SELFPAY ==
--- NOTE | 2024-03-25 08:01 | ECG_ITS ---
Test Date: 2024-03-25 08:16:46 Measurements Intervals [place] Rate: 61 P: 67 MT: 177 QRS: -9 QRSD: 94 T: 37 QT: 395 QTc: 400 Interpretive Statements SINUS RHYTHM BORDERLINE R WAVE PROGRESSION, ANTERIOR LEADS BASELINE ARTIFACT- I, II, III, AVF BORDERLINE ECG No previous ECG available for comparison Electronically Signed On 03-25-2024 09:24:23 CDT by Marshall Noel D.O.
[2024-03-25 08:54] LABS: Anion Gap 11 mmol/L (4-12); Blood Urea Nitrogen 22 mg/dL (9-20); Carbon Dioxide 23 mmol/L (22-30); Chloride 104 mmol/L (98-107); Estimated Glomerular Filt Rate 53; Glucose 114 mg/dL (65-110); Potassium 4.8 mmol/L (3.4-5.0); Sodium 138 mmol/L (137-145)
== END 2024-03-25 07:52 | disposition home or self-care (01) ==
LOC: ANHSURGERY 07:56
PROVIDERS: Anesthesiology; PCP Family Medicine Adolescent Medicine; Visit Provider Urology
DX: E78.2 Mixed hyperlipidemia (principal); E11.9 Type 2 diabetes mellitus without complications; R94.31 Abnormal electrocardiogram [ECG] [EKG]
CPT/HCPCS: 36415; 80048; 93005

== ENCOUNTER 2024-03-27 02:00 | Day surgery (SDC) | payer OTHER, SELFPAY ==
[2024-03-24 13:23] VITALS: BMI 26.6
--- NOTE | 2024-03-24 13:28 | PC.NURSE ---
Addendum entered by Radha Tena RN 03/25/24 09:59: Pt states aspirin not being stopped and that Dr. Randle is aware. Original Note: Report to the Outpatient Waiting Room, entrance under the green pavilion located off [facility], at time _0945_ on date _[id number]_. Planned Procedure Time: _1145_.? Time changes happen often and if your time is changed the preop area will call you the afternoon before. - You and your visitor will be asked to self-screen and do not enter if you have any COVID symptoms. Please call surgeon if you need to reschedule. - A mask is optional within the hospital at this time. Patients may have clear liquids (water, carbonated beverages, clear teas, apple juice) until 3 hours prior to surgery with a maximum of 20 ounces. - No food from midnight until time of surgery and no smoking Take only the following medications with a SIP of water on the morning of surgery: ___Carvidilol DO NOT STOP ANY OF YOUR OTHER PRESCRIPTION MEDICATIONS PRIOR TO SURGERY EXCEPT THE FOLLOWING Medications to discontinue per physician ____Multivitamin and fish oil Date to take last errp__[id number] Please no make-up, nail cypriot, hairspray, perfume, deodorant, or body powder the day of surgery.? No jewelry (including any body piercings) or valuables the day of surgery, leave them at home.? Please take a shower or bath the night before, or the morning of, surgery with an antibacterial soap.? Wear comfortable, loose fitting clothing.? - Jewelry must be removed prior to entering the operating room.? Rings and piercings that are not removed may be cut off. - The hospital will not accept responsibility for valuables.? - Please leave all valuables, including medications, at home the day of surgery. If you are going home after surgery, a licensed cryogenic transport driver must drive you home.? - NO public transportation without another adult if you receive anesthesia. - We recommend that an adult stay with you for 24 hours following discharge. - We also recommend that you do not drive, make important decision, drink alcoholic beverages, or take any drugs that were not prescribed by your health care provider for at least 24 hours after your discharge time. Follow any additional instructions given to you from your surgeon. Telephone instructions given to __Amadeo__and asked if any additional questions and then verbalized understanding. Patient advised to call surgeon office or pre surgery nurse liaison [phone] if any additional questions.
[2024-03-27] VITALS (8 sets, daily range): BP systolic 99–127; BP diastolic 57–94; PULSE 57–85; RESP 10–18; TEMP 36.1–36.4; O2SAT 100
--- NOTE | ~2024-03-27 | XR_ITS ---
EXAMINATION: XR fluoroscopy no charge DATE: 03/27/2024 11:38 INDICATION: Malignant neoplasm of bladder. TECHNIQUE: 2 intraoperative fluoroscopic views of the abdomen and pelvis were obtained. I was not pre sent. Fluoroscopy exposure time was 4 seconds. COMPARISON: CT abdomen and pelvis 05/15/2023 FINDINGS: A catheter overlies the bladder. There is a 10 mm stone in left kidney. IMPRESSION: 1. Left kidney stone. Reviewed, dictated and finalized at location A. IMPRESSION: 1. Left kidney stone.
--- NOTE | 2024-03-27 06:45 | WPDHPUPDATE1 ---
History and Physical Update Update Date/Time: 03/27/24 06:45 History and Physical has been reviewed, including an updated exam of the patient. There are NO changes in the patient's condition. Risks, benefits, and alternatives have been discussed and questions answered. Patient agrees to proceed with procedure.
[2024-03-27] MEDS: LACTATED RINGERS 1,000 ML 30 ML IV CONT (10:20)
[2024-03-27 10:23] LABS: Glucose Point of Care 185 mg/dl (65-105)
--- NOTE | 2024-03-27 11:04 | WPDANESEPPF ---
Anes - Initial Pre Proc Eval Procedure: Operation Date: 03/27/24 11:45 Proposed Procedures p Cystoscopy, Bilateral Ureteral Catheterization, Bilateral Retrograde Pyelogram with Random Bladder Biopsy - Charan Randle MD Date/Time: 03/27/24 11:04 Surgeon: Charan Randle MD Pre Op Diagnosis: abnormal cytology and FISH Patient Data Age: 78 Gender: M Height: 1.65 m Weight: 77.5 kg Last Vital Signs Temp 36.4 C L 03/27/24 09:50 Pulse 60 03/27/24 09:50 Resp 18 03/27/24 09:50 BP 114/67 03/27/24 09:50 Pulse Ox 100 03/27/24 09:50 O2 Del Method Room Air 03/27/24 09:50 Allergies Allergy/AdvReac Type Severity Reaction Status Date / Time No Known Allergies Allergy Verified 03/27/24 09:58 Home Medications Medication Instructions Recorded Confirmed Type carvedilol 12.5 mg tablet 12.5 mg PO BID 01/19/20 03/24/24 History sacubitril 49 mg-valsartan 51 mg 1 tablet PO BID 01/19/20 03/24/24 History tablet (Entresto) spironolactone 25 mg tablet 12.5 mg PO QAM 01/19/20 03/24/24 History multivitamin 1 tablet PO DAILY 04/06/22 03/24/24 History icosapent ethyl 1 gram capsule 2 g PO BID #90 caps 07/30/22 03/24/24 Rx (Vascepa) aspirin 81 mg tablet,delayed 81 mg PO DAILY 09/20/22 03/24/24 History release fluorouracil 5 % topical cream 1 applic topical BID 09/20/22 03/24/24 History tamsulosin 0.4 mg capsule 0.4 mg PO DAILY #90 caps 05/17/23 03/24/24 Rx lovastatin 40 mg tablet 40 mg PO QPM #90 tabs 08/03/23 03/24/24 Rx glimepiride 1 mg tablet 1 mg PO QAM #90 tabs 09/23/23 03/24/24 Rx metformin 500 mg tablet,extended 2,000 mg PO QPM #360 tabs 10/06/23 03/24/24 Rx release 24 hr finasteride 5 mg tablet See Rx Instructions .Route 03/13/24 03/24/24 Rx .COMPLEX #90 tabs Laboratory Tests 03/27/24 10:18 POC Capillary Glucose 185 H mg/dl (65-105) Patient hx anesthesia problems: none Family hx anesthesia problems: none Results Review: All pre-operative results and documents have been reviewed as part of the pre-operative evaluation. [facility] Past Medical History Medical History Cancer of overlapping sites of bladder Cardiomyopathy Diagnosed July 2019 CHF (congestive heart failure) EF 30% History of skin cancer basal cell, squamous cell Hyperlipidemia Hypertension ICD (implantable cardioverter-defibrillator) in place Vasovagal syncope Surgical History Surgical History Hx of heart artery stent Family History Family History Mother Diabetes mellitus Hypertension Alzheimer disease CAD (coronary artery disease) Father Hypertension CAD (coronary artery disease) Acute myocardial infarction Social History Social History Social History: , retired Smoking status: Never smoker Second hand tobacco smoke exposure: No Alcohol intake: never Substance use: never Substance use type: does not use Living arrangements: with family Additional living arrangements comments: Occupation/Education: retired Gender identity (if verbalized by the patient): Male Sexual Orientation (if Verbalized by the Patient): Straight or Heterosexual Spiritual care concerns: No Agree to blood products: Yes Anes - Eval Final PreProcedure Day of Procedure 03/27/24 11:04 Patient weight: overweight Heart: regular rate and rhythm Lungs: decreased breath sounds Airway: Mallampati scale class II Neurological: alert and oriented Last oral intake: >/= 8 hours ASA classification: IV Emergent: no Anesthetic plan: proceed Anesthesia type and monitoring: general LMA and standard monitoring Results Review: All pre-operative results and documents have been reviewed as part of the pre-operative evaluation. Informed Cons
[2024-03-27] MEDS: ceFAZolin 2 GM/D5W 50 ML 2 GM/50 ML BAG IVPB (11:05)
--- NOTE | 2024-03-27 11:45 | P.OP_ITS ---
Procedure Note - Detailed Date of Procedure 03/27/24 Pre-op Diagnosis Abnormal cytology and FISH Post-op Diagnosis Same Procedure Performed Cystoscopy, bladder biopsy, attempted retrograde pyelography Surgeon Charan Randle MD Anesthesia General Description of Procedure Patient brought the operative suite was prepped draped to draped routine sterile fashion while in dorsal lithotomy position. Nineteen F rigid cystoscope was used to undertake cystourethroscopy. He has evidence of a prior prostate resect ion with no urethral strictures. There is some slight nodularity in the trigone just inside the bladder neck at the 6 o'clock position. This appears to be prostate tissue. The remainder of the bladder was endoscopically normal. The mucosa shows some areas of scarring from prior resection but there was no suspicious hyperemia and there is certainly no pawan neoplasm. Despite exhaustive attempt I was unable to identify ureteral orifice so I was not unable to obtain upper tract urine/ washings for cytology or to perform retrograde pyelography. I did obtain a biopsy this tissue in his trigone and cauterized the base with a Bugbee electrode. This cystoscope was removed the patient was taken recovery room good condition. Drains No Packing No Pathology Yes Complications No immediate complications
[2024-03-27 11:47] LABS: Glucose Point of Care 143 mg/dl (65-105)
== END 2024-03-27 13:33 | disposition home or self-care (01) ==
PROVIDERS: PCP Family Medicine Adolescent Medicine; Visit Provider Urology
PROC: 0TBB8ZX Excision of Bladder, Via Natural or Artificial Opening Endoscopic, Diagnostic (ICD-10-PCS; CPT 52204; principal; 2024-03-27 11:45)
DX: Z08 Encounter for follow-up examination after completed treatment for malignant neoplasm (principal); I11.0 Hypertensive heart disease with heart failure; I50.9 Heart failure, unspecified; E11.9 Type 2 diabetes mellitus without complications; E78.5 Hyperlipidemia, unspecified; Z79.84 Long term (current) use of oral hypoglycemic drugs; Z79.82 Long term (current) use of aspirin; Z98.890 Other specified postprocedural states; Z95.810 Presence of automatic (implantable) cardiac defibrillator; Z95.5 Presence of coronary angioplasty implant and graft; Z85.51 Personal history of malignant neoplasm of bladder; Z85.828 Personal history of other malignant neoplasm of skin; Z82.49 Family history of ischemic heart disease and other diseases of the circulatory system
CPT/HCPCS: 52204; 82948; 88108; 88305; 99199; C1758; C1769; J0690; J1200; J2405; J2704; J3010; J7120

== ENCOUNTER 2024-04-24 11:47 | Outpatient (CLI) | payer OTHER, SELFPAY ==
--- NOTE | ~2024-04-24 | XR_ITS ---
Left Knee Technique: AP, lateral, and sunrise views were obtained. Clinical History: Lateral pain Findings: No fracture or dislocation is seen.. There is medial compartment narrowing. There is advanc ed patellofemoral compartment osteophyte formation. There is mild to moderate degenerative change of the medial lateral compartments otherwise. There is an osteochondroma at the medial aspect of the dis kiersten femoral metaphysis.. Soft tissues are unremarkable. No joint effusion is seen. Impression: Moderate to advanced degenerative change of the medial patellofemoral compartment. Mild to moderate d egenerative change of the lateral compartment. Osteochondroma at the medial aspect of the distal femoral metadiaphysis. Reviewed, dictated and finalized at location M. Impression: Moderate to advanced degenerative change of the medial patellofemoral compartme nt. Mild to moderate degenerative change of the lateral compartment. Osteochondroma at the medial aspect of the distal femoral metadiaphysis.
--- NOTE | ~2024-04-24 | XR_ITS ---
Right Knee Technique: AP, lateral, and sunrise views were obtained. Clinical History: Lateral pain Findings: No fracture or dislocation is seen. There is mild medial compartment narrowing. There is mo derate tricompartmental osteophyte formation.. Soft tissues are unremarkable. No joint effusion is se en. Impression: Moderate tricompartmental degenerative joint disease, as above. Reviewed, dictated and finalized at location . Impression: Moderate tricompartmental degenerative joint disease, as above.
== END 2024-04-24 11:48 | disposition home or self-care (01) ==
PROVIDERS: PCP Family Medicine Adolescent Medicine; Visit Provider Family Medicine Adolescent Medicine
DX: M17.0 Bilateral primary osteoarthritis of knee (principal)
CPT/HCPCS: 73562

== ENCOUNTER 2024-09-01 07:07 | Outpatient (CLI) | payer OTHER, SELFPAY ==
--- NOTE | ~2024-09-01 | CT_ITS ---
EXAMINATION: CT abdomen pelvis wo/w con DATE: 09/01/2024 08:04 INDICATION: Malignant neoplasm of the bladder TECHNIQUE: Computed tomography (CT) of the abdomen and pelvis was performed without intravenous contr ast. CT of the abdomen and pelvis was then performed with a total of 130 mL Omnipaque-350 intravenous contrast using a double-bolus technique for simultaneous opacification of the renal parenchyma and r enal collecting system. Automated exposure control and iterative reconstruction technique were employ ed. The dose-length product was 1026.26 mGy-cm. COMPARISON: CT dated 05/15/2023 FINDINGS: Mild discoid atelectasis in bilateral lower lobes. Heart size is normal. Atherosclerotic coronary art jennifer calcification. No pericardial effusion. Single lead cardiac pacemaker/AICD with lead tip near the apex of the right ventricle. A couple low attenuation subcentimeter cysts at the dome of the liver. Gallbladder, spleen, pancreas and bilateral adrenal glands are normal. There are several low-attenuat ion nonenhancing cysts at both kidneys, the largest 11 mm exophytic cyst at the lower pole the left k idney. There are a couple stones measuring 10 mm and 2 mm in a middle calyx of the left kidney. No ot her urolithiasis in either kidney or along the bilateral ureters which are normal in caliber. No urot helial irregularities evident on the postcontrast imaging at the bilateral renal collecting systems o r ureters which are opacified in their near entirety. Bladder is normal with smooth mucosal surface. Bowels are normal. Prostatomegaly measuring 5.6 x 4.1 cm. No free intraperitoneal gas or fluid. No pa thologically enlarged abdominal or pelvic lymphadenopathy. Severe lumbosacral spondylosis with mild t o moderate spondylosis and more cephalad lumbar and lower thoracic spine. IMPRESSION: 1. Nonobstructing left nephrolithiasis. 2. Prostatomegaly. 3. Bladder appears normal with no lesion suspicious for malignancy or metastatic disease. Reviewed, dictated and finalized at location B. ESS SERVICES MANAGER IMPRESSION: 1. Nonobstructing left nephrolithiasis. 2. Prostatomegaly. 3. Bladder appears normal with no lesion suspicious for malignancy or metastati c disease.
--- OUTSIDE RECORDS SUMMARY | 2024-09-01 07:12 | XMS_ITS | Referral Summary ---
Author Organization [facility] Address [address] [place] [address] Care Team Providers Care Beater Machine Operator Name Role Phone Marko Muñiz MD Primary Care Provider + Source Comments [facility],non-owned Affiliates and Associated Physician Practices is amultiple site organization consisting of ambulatory clinics and hospital sitesin [place], [place], [place]. This disclosure is being madepursuant to the Care Everywhere program and may not contain all information available regarding this patient. Last updated 18.[facility] Social History Tobacco Use Types Packs/Day Years Used Date Smoking Tobacco: Never Assessed Sex and Gender Information Value Date Recorded Sex Assigned at Not on file Gender Identity Not on file Sexual Orientation Not on file Plan of Treatment Not on file Care Teams Beater Machine Operator Relationship Specialty Start Date End Date Marko Muñiz MD [address] [place] [address] PCP - General 12/27/20
--- OUTSIDE RECORDS SUMMARY | 2024-09-01 07:12 | XMS_ITS | Clinical Summary ---
Author Organization [facility] Address [address] [place] [id number] Care Team Providers Care Customs And Immigration Officer Name Role Phone Unavailable Primary Care Provider Unavailabl e Social History Tobacco Use Types Packs/Day Years Used Date Smoking Tobacco: Never Assessed Sex and Gender Information Value Date Recorded Sex Assigned at Not on file Legal Sex Male 8:13 PM CDT Gender Identity Not on file Sexual Orientation Not on file Plan of Treatment Health Maintenance Due Date Last Done Comments Hepatitis C 1963 DTaP, Tdap and Td Vaccines ( 1 - Tdap) 1963 Zoster Vaccines (1 of 2) 1994 Pneumococcal Vaccine: 65+ Ye ars (1 of 1 - PCV) 2009 RSV Immunization or 60+ Years (1 - 1-dose 75+ series) 2019 COVID-19 Vaccine ( - 2023-2 5 season) 2024 Influenza Adult (#1) 2024 Meningococcal B Vaccine Aged Out No l onger eligible based on patient's age to complete this topic Meningococcal Vaccine Aged Out No adonis lucero eligible based on patient's age to complete this topic RSV Immunizations Under 20 Months Aged Out No longer eligible based on patient's age to complete this topic
--- OUTSIDE RECORDS SUMMARY | 2024-09-01 07:12 | XMS_ITS | Patient Health Summary ---
Author Organization [facility] Address [address] [place] [address] Care Team Providers Care Sales Assistant Displays Name Role Phone Marko Muñiz MD Primary Care Provider + Note from [facility],non-owned Affiliates and Associated Physician Practices is amultiple site organization consisting of ambulatory clinics and hospital sitesin [place], [place], [place] and [place]. This disclosure is being madepursuant to the Care Everywhere program and may not contain all information available regarding this patient. Last updated 18.[facility] Social History Tobacco Use Types Packs/Day Years Used Date Smoking Tobacco: Never Assessed Sex and Gender Information Value Date Recorded Sex Assigned at Not on file Gender Identity Not on file Sexual Orientation Not on file Procedures * DERMATOPATHOLOGY(Performed 05/12/2024) * DERMATOPATHOLOGY(Performed 04/24/2024) * DERMATOPATHOLOGY(Performed 10/17/2023) * DERMATOPATHOLOGY(Performed 03/22/2023) * DERMATOPATHOLOGY(Performed 12/14/2022) * DERMATOPATHOLOGY(Performed 09/06/2022) * DERMATOPATHOLOGY(Performed 08/08/2022) * DERMATOPATHOLOGY(Performed 08/01/2022) * DERMATOPATHOLOGY(Performed 05/24/2022) * DERMATOPATHOLOGY(Performed 10/04/2021) * DERMATOPATHOLOGY(Performed 09/14/2021) * DERMATOPATHOLOGY(Performed 06/23/2021) * DERMATOPATHOLOGY(Performed 12/24/2020) Results * DERMATOPATHOLOGY (05/12/2024 12:25 PM [employer]) Only the most recent of13 resultswithin the time period is included. Case Report Dermatopathology Report Case: [id number] Authorizing Provider: Radha Ravi DO Collected: 05/12/2024 12:25 PM Ordering Location: [facility] - Received: 05/13/2024 07:41 AM DermPath Lab Pathologist: Linda Celis MD Specimen: Skin, left neck 1:50 PM [facility] DERMATOPATHOLOGY LABORATORY Final Diagnosis Specimen A. SKIN, left neck: BASAL CELL CARCINOMA (C44.41) PRESENT AT LATERAL MARGIN DERMAL SCAR (L90.5) 1:50 PM [facility] DERMATOPATHOLOGY LABORATORY Clinical History BCC vs proven 1:50 PM [facility] DERMATOPATHOLOGY LABORATORY Gross Description Specimen A: Received is one formalin filled container labeled with the patient's name and designated left neck. The specimen consists of a non-oriented ellipse of skin measuring [id number] mm. The epidermal surface is unremarkable. The margin is inked green. The 12 o'clock and 6 o'clock tips are submitted in cassette 1. The remainder of the ellipse is serially sectioned and submitted in cassette 2-3. Jar 0. 1:50 PM [facility] DERMATOPATHOLOGY LABORATORY Microscopic Description Specimen A. SKIN, left neck: Within the dermis there are aggregates of basaloid cells with a high nuclear to cytoplasmic ratio and peripheral palisading. This lesion is present at the lateral margin of the specimen. There are fibroblasts and collagen bundles oriented parallel to the skin surface with elongated blood vessels, some of which are oriented perpendicular to the skin surface. 1:50 PM [facility] DERMATOPATHOLOGY LABORATORY Disclaimer An external and internal positive and negative controls are appropriate for the histochemical, immunohistochemical and immunofluorescence stain(s) in this case (if any), except where stated explicitly. The performance characteristics of the stain(s) cited in this report were developed and its performance characteristic determined by the Dermatopathology Laboratory at [facility], directed by Dr. Batool Mckoy. These tests need not be, and therefore are not, approved by the [place] Food and Drug Administration. The tests are used for clinical purposes. Billing Codes Specimen Charges Stain Charges 85190 1 1:50 PM [facility] DERMATOPATHOLOGY LABORATORY Embedded Images 11/06/202 4 1:50 PM [facility] [employer] DERMATOPATHOLOGY LABORATORY Pathology/Cytolo gy TISSUE SPECIMEN FROM SKIN / Unknown 05/12/2024 12:25 PM [employer] 05/13/2024 7:41 AM [employer] Radha Ravi DO LAB - PATHOLOGY/C YTOLOGY ORDERABLES DERMATOPATHOLOGY LABORATORY [facility] - Department of [facility] [address] [place] [address], [address] [phone] Care Teams Sales Assistant Displays Relationship Specialty Start Date End Date Marko Muñiz MD [address] [address] PCP - General 12/27/20
--- OUTSIDE RECORDS SUMMARY | 2024-09-01 07:12 | XMS_ITS | Continuity of Care Document ---
Author Organization [facility] Address [address] [place] [address] Phone Care Team Providers Care Heat Reader Name Role Phone Joseleah Alvino Unavailable Unavailable Procedures Procedure Date Eye Exam, New Patient Refraction Advance Directives Directive Yes / No Effective Date File Name No Information Encounters Encounter Description Practice Location Reason(s) For Visit Diagnoses Date Provider Providers Copied on Encounter [facility], [address], [place], [place], [id number], tel:[phone] [facility] No Information [address] [facility] [address], [place], [address], [place]. tel:[phone] Family History Family Member Type Diagnosis Age At Onset No Information Payers Payer name Insurance type Covered constitution party ID Authoriza tidavid(s) [facility] CI [id number] Social History Type Description Quantity Date Captured [...]
--- OUTSIDE RECORDS SUMMARY | 2024-09-01 07:12 | XMS_ITS | Clinical Summary ---
Author Organization [email or web address] Address [address] [facility] [place] [address] Care Team Providers Care Slab Polisher Name Role Phone Marko Muñiz MD Primary Care Provider + Source Comments [facility],non-owned Affiliates and Associated Physician Practices is amultiple site organization consisting of ambulatory clinics and hospital sitesin [place], [place], [place] and [place]. This disclosure is being madepursuant to the Care Everywhere program and may not contain all information available regarding this patient. Last updated 18.[email or web address] Social History Tobacco Use Types Packs/Day Years Used Date Smoking Tobacco: Never Assessed Sex and Gender Information Value Date Recorded Sex Assigned at Not on file Gender Identity Not on file Sexual Orientation Not on file Plan of Treatment Health Maintenance Due Date Last Done Comments MEDICARE AWV 12 MONTHS 1944 DTAP/TDAP/TD VACCINES (1 - Tdap) 1963 PNEUMOCOCCAL VACCINE 50+ (1 of 1 - PCV) 1994 ZOSTER VACCINE (1 of 2) 1994 Respiratory Syncytial Virus (RSV) Vaccine Pt: or over 60 yrs (1 - 1-dose 75+ series) 2019 COVID-19 VACCINE ( - 2023-2 5 season) 2024 INFLUENZA VACCINE (#1) 2024 DEPRESSION SCREENING 07/09/2024 HEPATITIS B VACCINE Aged Out No longe r eligible based on patient's age to complete this topic HIB VACCINE Aged Out No longer eligi ble based on patient's age to complete this topic HPV VACCINE Aged Out No longer eligi ble based on patient's age to complete this topic MENINGOCOCCAL (Group B) VACCINE Aged Out No longer eligible based on patient's age to complete this topic MENINGOCOCCAL VACCINE Aged Out No adonis lucero eligible based on patient's age to complete this topic Care Teams Slab Polisher Relationship Specialty Start Date End Date Marko Muñiz MD [address] [facility] [address] [place] [address] PCP - General 12/27/20
--- OUTSIDE RECORDS SUMMARY | 2024-09-01 07:12 | XMS_ITS | Encounter Summary ---
Author Organization [facility] Address [address] [facility] [place] [address] Care Team Providers Care Technical Aid Name Role Phone Marko Muñiz MD Primary Care Provider + Encounter Details Date Type Department Care Team (Late st Contact Info) Description 12/27/2020 Lab Requisition [facility] DermPath Lab [address] [facility], [place] [id number] Radha Ravi DO [address] [facility] [address] [place] [address] Social History Tobacco Use Types Packs/Day Years Used Date Smoking Tobacco: Never Assessed Sex and Gender Information Value Date Recorded Sex Assigned at Not on file Gender Identity Not on file Sexual Orientation Not on file documented as of this encounter Plan of Treatment Not on file documented as of this encounter Procedures Procedure Name Priority Date/Time Associated Diagnosis Comments DERMATOPATHOLOGY Routine 12/24/2020 12:0 0 AM CDT documented in this encounter Results * DERMATOPATHOLOGY (12/24/2020 12:00 AM CDT) Case Report Dermatopathology Report Case: [id number] Authorizing Provider: Radha Ravi DO Collected: 12/24/2020 12:00 AM Ordering Location: [facility] DermPath Lab Received: 12/27/2020 09:05 AM Pathologist: Farzaneh Hickey MD Specimens: A) - Skin, forehead B) - Skin, right forearm 10:17 AM CDT DERMATOPATHOLOGY LABORATORY Final Diagnosis Specimen A. SKIN, forehead: BASAL CELL CARCINOMA, SUPERFICIAL MULTIFOCAL (C44.319) Specimen B. SKIN, right forearm: ACTINIC KERATOSIS, LICHENOID (L57.0) SOLAR LENTIGO (L81.4) (see microscopic description) 10:17 AM [facility] DERMATOPATHOLOGY LABORATORY Clinical History A: R/O BCC. B: R/O melanoma. 10:17 AM [facility] DERMATOPATHOLOGY LABORATORY Gross Description Specimen A: Received is one formalin filled container labeled with the patient's name and designated forehead. The specimen consists of a shave measuring [id number]. Jar 0. Specimen B: Received is one formalin filled container labeled with the patient's name and designated right forearm. The specimen consists of a shave measuring [id number]. Jar 0. 10:17 AM [facility] DERMATOPATHOLOGY LABORATORY Microscopic Description Specimen A. SKIN, forehead: Attached to the undersurface of the epidermis, there are small aggregates of basaloid cells with a high nuclear to cytoplasmic ratio and peripheral palisading. Specimen B. SKIN, right forearm: There is focal parakeratosis. The lower half of the epidermis shows disorderly maturation of keratinocytes with nuclear pleomorphism. Adnexal extension of the lesion is seen. The dermis shows a band-like, chronic inflammatory infiltrate with occasional apoptotic keratinocytes and some basal vacuolar alteration. There is adjacent orthokeratosis. There is a slight increase in epidermal thickness with lentiginous buds of hyperpigmented keratinocytes. The number of melanocytes, highlighted by MART-1/Melan-A immunohistochemical staining, is only mildly increased. In the dermis, there is basophilic degeneration of elastic fibers. Additional deeper sections were obtained and reviewed. 10:17 AM [facility] DERMATOPATHOLOGY LABORATORY Disclaimer An external and internal positive and negative controls are appropriate for the histochemical, immunohistochemical and immunofluorescence stain(s) in this case (if any), except where stated explicitly. The performance characteristics of the stain(s) cited in this report were developed and its performance characteristic determined by the Dermatopathology Laboratory at [facility], directed by Dr. Batool Mckoy. These tests need not be, and therefore are not, approved by the [place] Food and Drug Administration. The tests are used for clinical purposes. Billing Codes Specimen Charges Stain Charges 11563 56653 1 1 44250 1 10:17 AM CDT DERMATOPATHOLOGY LABORATORY Embedded Images 10:17 AM CDT DERMATOPATHOLOGY LABORATORY Pathology/Cytology TISSUE SPECIMEN FROM SKIN / Unknown 12/24/2020 12/27/2020 9:05 AM CDT Miscellaneous samples (specimen) TISSUE SPECIMEN FROM SKIN / Unknown 12/24/2020 12/27/2020 9:05 AM CDT Radha Ravi DO LAB - PATHOLOGY/C YTOLOGY ORDERABLES DERMATOPATHOLOGY LABORATORY [facility] - Department of Dermatology [facility] [address] [place] [address], [address] [phone] documented in this encounter Visit Diagnoses Not on filedocumented in this encounter Care Teams Technical Aid Relationship Specialty Start Date End Date Marko Muñiz MD [address] [address] PCP - General 12/27/20 documented as of this encounter
--- OUTSIDE RECORDS SUMMARY | 2024-09-01 07:12 | XMS_ITS | Encounter Summary ---
Author Organization [facility] Address [address] [place] [address] Care Team Providers Care Beaming Machine Operator Name Role Phone Marko Muñiz MD Primary Care Provider + Encounter Details Date Type Department Care Team (Late st Contact Info) Description 05/12/2024 Lab Requisition [facility] - DermPath Lab [address] [facility], [facility] [place] [phone] Radha Ravi DO [address] [facility] [address] [place] [address] Social History Tobacco Use Types Packs/Day Years Used Date Smoking Tobacco: Never Assessed Sex and Gender Information Value Date Recorded Sex Assigned at Not on file Gender Identity Not on file Sexual Orientation Not on file documented as of this encounter Plan of Treatment Not on file documented as of this encounter Procedures Procedure Name Priority Date/Time Associated Diagnosis Comments DERMATOPATHOLOGY Routine 05/12/2024 12:2 5 PM [employer] documented in this encounter Results * DERMATOPATHOLOGY (05/12/2024 12:25 PM [employer]) Case Report Dermatopathology Report Case: [id number] Authorizing Provider: Radha Ravi DO Collected: 05/12/2024 12:25 PM Ordering Location: [facility] - Received: 05/13/2024 07:41 AM DermPath Lab Pathologist: Linda Celis MD Specimen: Skin, left neck 1:50 PM [facility] [employer] DERMATOPATHOLOGY LABORATORY Final Diagnosis Specimen A. SKIN, left neck: BASAL CELL CARCINOMA (C44.41) PRESENT AT LATERAL MARGIN DERMAL SCAR (L90.5) 1:50 PM [facility] DERMATOPATHOLOGY LABORATORY Clinical History BCC vs proven 1:50 PM [facility] DERMATOPATHOLOGY LABORATORY Gross Description Specimen A: Received is one formalin filled container labeled with the patient's name and designated left neck. The specimen consists of a non-oriented ellipse of skin measuring [id number] mm. The epidermal surface is unremarkable. The margin is inked green. The 12 o'clock and 6 o'clock tips are submitted in cassette 1. The remainder of the ellipse is serially sectioned and submitted in cassette 2-3. Jar 0. 1:50 PM [facility] DERMATOPATHOLOGY LABORATORY Microscopic Description Specimen A. SKIN, [...] perpendicular to the skin surface. 1:50 PM [facility] DERMATOPATHOLOGY LABORATORY Disclaimer An external and internal positive and negative controls are appropriate for the histochemical, immunohistochemical and immunofluorescence stain(s) in this case (if any), except where stated explicitly. The performance characteristics of the stain(s) cited in this report were developed and its performance characteristic determined by the Dermatopathology Laboratory at [facility], directed by Dr. Batool Mckoy. These tests need not be, and therefore are not, approved by the [place] Food and Drug Administration. The tests are used for clinical purposes. Billing Codes Specimen Charges Stain Charges 00552 1 4 1:50 PM [facility] DERMATOPATHOLOGY LABORATORY Embedded Images 1:50 PM [facility] DERMATOPATHOLOGY LABORATORY Pathology/Cytolo gy TISSUE SPECIMEN FROM SKIN / Unknown 05/12/2024 12:25 PM [employer] 05/13/2024 7:41 AM [employer] Radha Ravi DO LAB - PATHOLOGY/C YTOLOGY ORDERABLES DERMATOPATHOLOGY LABORATORY [facility] - Department of Dermatology [address], 3[address] Floor [place], [place] [id number] [place] [address] documented in this encounter Visit Diagnoses Not on filedocumented in this encounter Care Teams Beaming Machine Operator Relationship Specialty Start Date End Date Marko Muñiz MD [address] [address] PCP - General 12/27/20 documented as of this encounter
--- OUTSIDE RECORDS SUMMARY | 2024-09-01 07:12 | XMS_ITS | Referral Summary ---
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 (Primary Dx); Cardiomyopathy, unspecified type (HCC); Low blood pressure reading; Automatic implantable cardiac defibrillator in situ 06/18/2024 Orders Only [facility] [address] [place] [address] [place] [phone] Ivan Cortes MD Automatic implantable cardiac defibrillator in situ (Primary Dx); NICM (nonischemic cardiomyopathy) (CMS/HCC) (HCC) 06/18/2024 2:00 PM TIGHT ROPE WALKER Ancillary Procedure [facility] [address] [place] [address] [address] [place] [address] NICM (nonischemic cardiomyopathy) (CMS/HCC) (HCC); Automatic implantable cardiac defibrillator in situ from Last 3 Months Allergies No known active allergies Medications glimepiride (AMARYL) 1 mg tablet Take 1 tablet (1 mg total) by mouth daily before breakfast 9 Active metFORMIN XR (GLUCOPHAGE XR) 500 mg 24 hr tablet Take 4 tablets (2,000 mg total) by mouth nightly 9 Active lovastatin (MEVACOR) 40 mg tablet Take 1 tablet (40 mg total) by mouth nightly 9 Active aspirin 81 mg enteric coated tabletIndication s:Coronary artery disease involving agdaagux coronary artery of agdaagux heart, angina presence unspecified Take 1 tablet (81 mg total) by mouth daily 30 tablet 11 0 Active finasteride (PROSCAR) 5 mg tablet Take 1 tablet (5 mg total) by mouth daily 2 Active tamsulosin (FLOMAX) 0.4 mg extended release capsule Take 1 capsule (0.4 mg total) by mouth daily Active Entresto 49-51 mg tabletIndication s:Chronic systolic heart failure (CMS/HCC) (HCC) TAKE 1 TABLET BY MOUTH TWICE A DAY 60 tablet 11 4 Active icosapent ethyL (VASCEPA) 1 gram capsule TAKE 2 CAPSULES BY MOUTH TWICE A DAY 120 capsule 11 4 Active spironolactone (ALDACTONE) 25 mg tablet TAKE 1/2 TABLET BY MOUTH DAILY 45 tablet 4 Active carvediloL (COREG) 12.5 mg tabletIndication s:Chronic systolic heart failure (CMS/HCC) (HCC) TAKE 1 TABLET BY MOUTH TWICE A DAY WITH FOOD 180 tablet 2 4 Active multivitamin-min erals-lutein (Multivitamin 50 Plus) tablet Take by mouth Act sima Active Problems Problem Noted Date Diagnosed Date Visit for wound check 02/03/2020 Visit for wound check 01/27/2020 Automatic implantable cardiac defibrillator in s itu 01/22/2020 Overview (01/22/2020): Bread[employer]iFirefly Media Single ICD. Dx; NICM. DOI 01/20/2020-[facility]. [employer] remote home monitoring. 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 08/04/2019 Hyperlipidemia associated with type 2 diabetes m ellitus 08/04/2019 Diabetes mellitus type II, non insulin dependent ([facility]) 08/04/2019 Left ventricular hypertrophy 08/04/2019 Cardiomyopathy 08/04/2019 Basal cell carcinoma (BCC) of skin of ear 2014 Basal cell carcinoma (BCC) of skin of nose 02/05 Social History Tobacco Use Types Packs/Day Years Used Date Smoking Tobacco: Never Smokeless Tobacco: Never Tobacco Cessation:Counseling Given: Not Answered Alcohol Use Standard Drinks/Week Comments Never 0 (1 standard drink = 0.6 oz pur e alcohol) AUDIT-C Answer Date Recorded Frequency of Alcohol Consumption Never 08/04/2019 Average Number of Drinks Not on file 020 Frequency of Binge Drinking Not on file 07/10 Sex and Gender Information Value Date Recorded Sex Assigned at Not on file Legal Sex Male 12:47 AM TIGHT ROPE WALKER Gender Identity Not on file Sexual Orientation Not on file Last Filed Vital Signs Vital Sign Reading Time Taken Comments Blood Pressure 92/42 08/29/2024 10:59 AM TIGHT ROPE WALKER Pulse 71 08/29/2024 10:59 AM TIGHT ROPE WALKER Temperature 36.4 C (97.5 F) 12/26/2019 11:11 AM CDT Respiratory Rate 13 08/15/2019 3:53 PM TIGHT ROPE WALKER Oxygen Saturation 98% 08/29/2024 10:59 AM TIGHT ROPE WALKER Inhaled Oxygen Concentration - - Weight 74.4 kg (164 lb) 08/29/2024 10:59 AM TIGHT ROPE WALKER Height 165.1 cm (5' 5 ) 08/29/2024 10:59 AM TIGHT ROPE WALKER Body Mass Index 27.29 08/29/2024 10:59 AM TIGHT ROPE WALKER Plan of Treatment Not on file Medical Devices Implanted Type Area Search Engine Optimization Consultant Device Identifier Shelf Expiration Date Model / Serial / Lot [id number] [id number] Synergy 2.5mm 16mm 144cm Radiopaque 1 Access Port Inflation Lumen - [id number] Implanted:Qty: 1 on 08/14/2019 by Jose Levin MD at [facility] Dev4X 11/17/2020 [id number] / / Daig [id number] Device Closure Angio-Seal Vip Bondek-Plus Polyglyd L70 Cm Od6 Fr Odsec.035 In Vascular - [id number] Implanted:Qty: 1 on 08/14/2019 by Joes Levin MD at [facility] [id number] / / Procedures Procedure Name Priority Date/Time Associated Diagnosis Comments DEVICE CHECK - IN OFFICE Routine 06/18/2024 1:49 PM TIGHT ROPE WALKER NICM (nonischemic cardiomyopathy) (CMS/HCC) (HCC) Automatic implantable cardiac defibrillator in situ LIPID PANEL Routine 11/22/2022 BASIC METABOLIC PANEL Routine 01/13/2020 1:13 PM CDT from Last 3 Months or Most Recently Relevant to Health Maintenance Results * DEVICE CHECK - IN OFFICE (06/18/2024 1:49 PM TIGHT ROPE WALKER) Anatomical Region Laterality Modality Other Narrative 06/24/2024 11:47 AM TIGHT ROPE WALKER BreadroniFirefly [employer] Single ICD. Dx; NICM. DOI 01/20/2020-[facility]. Bread[employer]ik remote home monitoring. Supervising MD: Dr Levin. Office interrogation of VDI ICD demonstrated appropriate device function. Left pectoral incision well healed without signs of infection noted. Battery function-3.12V. 87% Battery life remaining to ABRAHAM. Charge time-9.4 seconds. Appropriate lead measurements noted. Presenting rhythm: -VS (SR). ASSET ANALYST-0%. No atrial episodes recorded. No ventricular tachy arrhythmias recorded. Medications; ASA 81 mg, Coreg, Entresto. No programming changes made today. See scanned report. Biotronik remote f/u 09/23/2024. Office device f/u 10/21/2025. Arabella Orr, RN Ivan Cortes MD [facility] [place] Final Result * Lipid panel (11/22/2022) SCRIBED Cholesterol, Total 105 <200 [facility] SCRIBED HDL 20 >40 [facility] SCRIBED LDL 45 <100 [facility] SCRIBED Triglycerides 254 <150 [facility] Blood Historical Provider LAB BLOOD ORDERABLES Edit ed Result - Final [facility] * (ABNORMAL) Basic metabolic panel (01/13/2020 1:13 PM CDT) Pathologist [facility] Glucose 151(H) 65 - 99 mg/dL [facility] - 01 BUN 14 8 - 27 mg/dL [facility] - 01 Creatinine, Serum 1.01 0.76 - 1.27 mg/dL [facility] - 01 eGFR If NonAfricn Am 72 >59 mL/min/1.7 3 [facility] - 01 eGFR If Africn Am 84 >59 mL/min/1.7 3 [facility] - 01 BUN/creat ratio 14 10 - 24 [facility] - 01 Sodium 141 134 - 144 mmol/L [facility] - 01 Potassium, sr 5.1 3.5 - 5.2 mmol/L [facility] - 01 Chloride 104 96 - 106 mmol/L [facility] - 01 CO2 25 20 - 29 mmol/L [facility] - 01 Calcium 9.3 8.6 - 10.2 mg/dL [facility] - 01 01/13/2020 1:13 PM CDT 01/13/2020 Narrative [facility] - 01/14/2020 8:12 AM CDT Performed at: 01 - [facility] [id number] Core Cleaner: Naeem Oliveros PhD, Phone: [phone] Nazia Goldstein MD LAB BLOOD ORDERABLES Final Result [facility] - 01 from Last 3 Months or Most Recently Relevant to Health Maintenance Insurance [facility] [employer] CHOICE PPO Care Teams Creative Art Director Relationship Specialty Start Date End Date Marko Muñiz MD [address] [place] [address] PCP - General Family Medicine 07/15/19
--- OUTSIDE RECORDS SUMMARY | 2024-09-01 07:12 | XMS_ITS ---
Author Organization [facility] [address] Address [address] [place] [address] Care Team Providers Care Meat Supervisor Name Role Phone Marko Muñiz MD Primary Care Prov ider Active Problems Problem Noted Date Diagnosed Date Visit for wound check 02/03/2020 Visit for wound check 01/27/2020 Automatic implantable cardiac defibrillator in s itu 01/22/2020 Overview (01/22/2020): HandMinderroniDatahero Single ICD. Dx; NICM. [facility] HandMinderronik remote home monitoring. At risk for sudden cardiac 01/13/2020 Chronic prostatitis 01/13/2020 Hypertriglyceridemia 09/15/2019 Chronic systolic heart failure (CMS/HCC) 020 Shortness of breath 08/25/2019 Coronary artery disease of n ative artery of standing rock heart with stable angina pectoris 08/04/2019 Hyperlipidemia associated with type 2 diabetes m ellitus 08/04/2019 Diabetes mellitus type II, non insulin dependent (CMS/HCC) 08/04/2019 Left ventricular hypertrophy 08/04/2019 Cardiomyopathy 08/04/2019 Basal cell carcinoma (BCC) of skin of ear 2014 Basal cell carcinoma (BCC) of skin of nose 02/05 Current Treatment and Therapy Plans No current plan information found. Past Treatment and Therapy Plans No past plan information found. Lifetime Dose Tracking * Chemical Lifetime Dose Automatic Entry Manual Entr y Air kerma at the reference point (Ka,r) 301 mGy 0 mGy 301 mGy
--- OUTSIDE RECORDS SUMMARY | 2024-09-01 07:12 | XMS_ITS | Encounter Summary ---
Author Organization [facility] Address [address] [place] [address] Care Team Providers Care Patient Representative Name Role Phone Marko Muñiz MD Primary Care Provider + Encounter Details Date Type Department Care Team (Late st Contact Info) Description 12/14/2022 Lab Requisition [facility] - DermPath Lab [address] [facility], [place] [phone] Radha Ravi DO [address] [facility] [address] [place] [address] Social History Tobacco Use Types Packs/Day Years Used Date Smoking Tobacco: Never Assessed Sex and Gender Information Value Date Recorded Sex Assigned at Not on file Gender Identity Not on file Sexual Orientation Not on file documented as of this encounter Plan of Treatment Not on file documented as of this encounter Procedures Procedure Name Priority Date/Time Associated Diagnosis Comments DERMATOPATHOLOGY Routine 12/14/2022 10:4 6 AM CDT documented in this encounter Results * DERMATOPATHOLOGY (12/14/2022 10:46 AM CDT) Case Report Dermatopathology Report Case: [id number] Authorizing Provider: Radha Ravi DO Collected: 12/14/2022 10:46 AM Ordering Location: [facility] DermPath Lab Received: 12/15/2022 01:12 PM Pathologist: Farzaneh Hickey MD Specimen: Skin, left scalp 1:57 PM CDT DERMATOPATHOLOGY LABORATORY Final Diagnosis Specimen A. SKIN, left scalp: SQUAMOUS CELL CARCINOMA, KERATOACANTHOMA TYPE; SUPERFICIAL PORTIONS OF (C44.42) (see microscopic description) 06/12/202 3 1:57 PM CDT DERMATOPATHOLOGY LABORATORY Clinical History R/O NMSC 1:57 PM CDT DERMATOPATHOLOGY LABORATORY Gross Description Specimen A: Received is one formalin filled container labeled with the patient's name and designated left scalp. The specimen consists of a shave biopsy measuring 10x8x1 mm. Jar 0+. 1:57 PM CDT DERMATOPATHOLOGY LABORATORY Microscopic Description Specimen A. SKIN, left scalp: Sections show superficial portions of an endo exophytic crateriform lesion with a keratotic plug, formed by confluent follicle-like structures with relatively large keratinocytes. Additional deeper sections were obtained and reviewed. 1:57 PM CDT DERMATOPATHOLOGY LABORATORY Disclaimer An external and internal positive and negative controls are appropriate for the histochemical, immunohistochemical and immunofluorescence stain(s) in this case (if any), except where stated explicitly. The performance characteristics of the stain(s) cited in this report were developed and its performance characteristic determined by the Dermatopathology Laboratory at [facility], directed by Dr. Batool Mckoy. These tests need not be, and therefore are not, approved by the [place] Food and Drug Administration. The tests are used for clinical purposes. Billing Codes Specimen Charges Stain Charges 63056 1 1:57 PM CDT DERMATOPATHOLOGY LABORATORY Embedded Images 1:57 PM CDT DERMATOPATHOLOGY LABORATORY Pathology/Cytolo gy TISSUE SPECIMEN FROM SKIN / Unknown 12/14/2022 10:46 AM CDT 12/15/2022 1:12 PM CDT Radha Ravi DO LAB - PATHOLOGY/C YTOLOGY ORDERABLES DERMATOPATHOLOGY LABORATORY [facility] - Department of Dermatology [address] [phone] documented in this encounter Visit Diagnoses Not on filedocumented in this encounter Care Teams Patient Representative Relationship Specialty Start Date End Date Marko Muñiz MD [address] [address] PCP - General 12/27/20 documented as of this encounter
--- OUTSIDE RECORDS SUMMARY | 2024-09-01 07:12 | XMS_ITS | Clinical Summary ---
Author Organization [facility] [address] Address [address] [place] [address] Care Team Providers Care Tower Control Operator Name Role Phone Marko Muñiz MD Primary Care Prov ider Allergies No known active allergies Medications glimepiride [...] enteric coated tabletIndication s:Coronary artery disease involving robinson coronary artery of robinson heart, angina presence unspecified Take 1 tablet [...] BY MOUTH TWICE A DAY 120 capsule 4 Active spironolactone (ALDACTONE) 25 mg tablet [...] defibrillator in s itu 01/22/2020 Overview (01/22/2020): Cribspot Single ICD. Dx; NICM. DOI 01/20/2020-[employer]. Cribspot remote home monitoring. 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 08/04/2019 Hyperlipidemia associated with type 2 diabetes m ellitus 08/04/2019 Diabetes mellitus type II, non insulin dependent (CMS/HCC) 08/04/2019 Left ventricular hypertrophy 08/04/2019 Cardiomyopathy 08/04/2019 Basal cell carcinoma (BCC) of skin of ear 2014 Basal cell carcinoma (BCC) of skin of nose 02/05 Encounters Date Type Department Care Team Description 08/29/2024 11:00 AM PHOTOGRAPHER SCIENTIFIC Office Visit [facility] [address] [facility] [address] [place] [phone] Cora Davila NP Coronary artery disease involving robinson coronary artery of robinson heart without angina pectoris (Primary Dx); Cardiomyopathy, unspecified type (HCC); Low blood pressure reading; Automatic implantable cardiac defibrillator in situ 06/18/2024 2:00 PM PHOTOGRAPHER SCIENTIFIC Ancillary Procedure [facility] [address] [place] [phone] NICM (nonischemic cardiomyopathy) (CMS/HCC) (HCC); Automatic implantable cardiac defibrillator in situ 06/18/2024 Orders Only [facility] [address] [facility] [address] [place] [phone] Ivan Cortes MD Automatic implantable cardiac defibrillator in situ (Primary Dx); NICM (nonischemic cardiomyopathy) (CMS/HCC) (HCC) from Last 3 Months Surgical History Surgery Date Site/Laterality Comments CARDIAC CATHETERIZATION SKIN CANCER DESTRUCTION LASER OF PROSTATE W/ GREEN LIGHT PVP Medical History Medical History Date Comments Diabetes mellitus (HCC) Enlarged prostate Type 2 diabetes mellitus (HCC) Abnormal echocardiogram Abnormal EKG Skin cancer Hypertension Coronary artery disease Family History Medical History Relation Name Comments Heart failure Father Skin cancer Father Family history of skin cancer - (Added by TW Conv) Alzheimer's disease Mother Relation Name Status Comments Father (Age 81) Mother (Age 85) Social History Tobacco Use Types Packs/Day Years [...] on file Legal Sex Male 12:47 AM PHOTOGRAPHER SCIENTIFIC Gender Identity Not on file Sexual Orientation Not on file Obstetrics History Last Filed Vital Signs Vital Sign Reading Time Taken Comments Blood Pressure 92/42 08/29/2024 10:59 AM PHOTOGRAPHER SCIENTIFIC Pulse 71 08/29/2024 10:59 AM PHOTOGRAPHER SCIENTIFIC Temperature 36.4 C (97.5 F) 12/26/2019 11:11 AM CDT Respiratory Rate 13 08/15/2019 3:53 PM PHOTOGRAPHER SCIENTIFIC Oxygen Saturation 98% 08/29/2024 10:59 AM PHOTOGRAPHER SCIENTIFIC Inhaled Oxygen Concentration - - Weight 74.4 kg (164 lb) 08/29/2024 10:59 AM PHOTOGRAPHER SCIENTIFIC Height 165.1 cm (5' 5 ) 08/29/2024 10:59 AM PHOTOGRAPHER SCIENTIFIC Body Mass Index 27.29 08/29/2024 10:59 AM PHOTOGRAPHER SCIENTIFIC Plan of Treatment Health Maintenance Due Date Last Done Comments Albumin Creatinine Ratio, Urine 1944 Depression Screening 1944 Fall Risk Assessment 1944 Hemoglobin A1C 1944 Dilated Eye Exam 1944 Foot Exam 1944 DTaP/Tdap/Td Vaccine (1 - Tdap) 1955 Hepatitis B Screening 1962 Pneumococcal vaccine 65+ (1 of 2 - PCV) 1963 Zoster Vaccine (1 of 2) 1994 Well Visit 65+ 2009 eGFR 01/12/2021 01/13/2020, 12/08, 11/26/2019, Additional history exists Lipid Panel 11/23/2023 11/22/2022, 02/06, 04/26/2021, Additional history exists Influenza Vaccine (#1) 2024 04/09/2013 Medical Devices Implanted Type Area Manager Hiv Device Identifier Shelf Expiration Date Model / Serial / Lot Earthineer [id number] Synergy 2.5mm 16mm 144cm Radiopaque 1 Access Port Inflation Lumen - [id number] Implanted:Qty: 1 on 08/14/2019 by Jose Levin MD at [facility] Earthineer 11/17/2020 [id number] / / [id number] [id number] Device Closure Angio-Seal Vip Bondek-Plus Polyglyd L70 Cm Od6 Fr Odsec.035 In Vascular - [id number] Implanted:Qty: 1 on 08/14/2019 by Jose Levin MD at [facility] [employer] [employer] [facility] [id number] / / Procedures Procedure Name Priority Date/Time Associated Diagnosis Comments DEVICE CHECK - IN OFFICE Routine 06/18/2024 1:49 PM PHOTOGRAPHER SCIENTIFIC NICM (nonischemic cardiomyopathy) (CMS/HCC) (HCC) Automatic implantable cardiac defibrillator in situ LIPID PANEL Routine 11/22/2022 BASIC METABOLIC PANEL Routine 01/13/2020 1:13 PM CDT from Last 3 Months or Most Recently Relevant to Health Maintenance Results * DEVICE CHECK - IN OFFICE (06/18/2024 1:49 PM PHOTOGRAPHER SCIENTIFIC) Anatomical Region Laterality Modality Other Narrative 06/24/2024 11:47 AM PHOTOGRAPHER SCIENTIFIC Biotronik Single ICD. Dx; NICM. DOI 01/20/2020-[facility]. Biotronik remote home monitoring. Supervising MD: Dr Levin. Office interrogation of VDI ICD demonstrated appropriate device function. Left pectoral incision well healed without signs of infection noted. Battery function-3.12V. 87% Battery life remaining to ABRAHAM. Charge time-9.4 seconds. Appropriate lead measurements noted. Presenting rhythm: -VS (SR). AUTOMOTIVE TITLE CLERK-0%. No atrial episodes recorded. No ventricular tachy arrhythmias recorded. Medications; ASA 81 mg, Coreg, Entresto. No programming changes made today. See scanned report. Biotronik remote f/u 09/23/2024. Office device f/u 10/21/2025. Arabella Orr RN Ivan Cortes MD [facility] Final Result * Lipid panel (11/22/2022) [facility] SCRIBED Cholesterol, Total 105 <200 [facility] SCRIBED HDL 20 >40 [facility] SCRIBED LDL 45 <100 [facility] SCRIBED Triglycerides 254 <150 [facility] Blood Historical Provider LAB BLOOD ORDERABLES Edit ed Result - Final [facility] * (ABNORMAL) Basic metabolic panel (01/13/2020 1:13 PM CDT) Pathologist [facility] Glucose 151(H) 65 - 99 mg/dL [facility] [...] - 01/14/2020 8:12 AM CDT Performed at: - [facility] [address] [id number] Jewel Bearing Facer: Naeem Oliveros PhD, Phone: [phone] Nazia Goldstein MD LAB BLOOD ORDERABLES Final Result [facility] from Last 3 Months or Most Recently Relevant to Health Maintenance Insurance [facility] AD[facility] CHOICE PPO Care Teams Tower Control Operator Relationship Specialty Start Date End Date Marko Muñiz MD [address] [place] [address] PCP - General Family Medicine 07/15/19
--- OUTSIDE RECORDS SUMMARY | 2024-09-01 07:12 | XMS_ITS | Encounter Summary ---
Author Organization [facility] Address [address] [facility] [place] [address] Care Team Providers Care Radiation Therapy Technologist Name Role Phone Marko Muñiz MD Primary Care Provider + Encounter Details Date Type Department Care Team (Late st Contact Info) Description 10/17/2023 Lab Requisition [facility] - DermPath Lab [address] [facility] [phone] Radha Ravi DO [address] [facility] [address] [place] [address] Social History Tobacco Use Types Packs/Day Years Used Date Smoking Tobacco: Never Assessed Sex and Gender Information Value Date Recorded Sex Assigned at Not on file Gender Identity Not on file Sexual Orientation Not on file documented as of this encounter Plan of Treatment Not on file documented as of this encounter Procedures Procedure Name Priority Date/Time Associated Diagnosis Comments DERMATOPATHOLOGY Routine 10/17/2023 9:57 AM CDT documented in this encounter Results * DERMATOPATHOLOGY (10/17/2023 9:57 AM CDT) Case Report Dermatopathology Report Case: [id number] Authorizing Provider: Radha Ravi DO Collected: 10/17/2023 09:57 AM Ordering Location: [facility] - Received: 10/18/2023 07:54 AM DermPath Lab Pathologist: Latricia Hickey MD Specimens: A) - Skin, right cheek anterior B) - Skin, right cheek posterior 12:45 PM CDT DERMATOPATHOLOGY LABORATORY Final Diagnosis Specimen A. SKIN, right cheek anterior: SQUAMOUS CELL CARCINOMA IN SITU, PRESENT AT THE BASE OF THE SPECIMEN (D04.39) (see microscopic description and comment) Specimen B. SKIN, right cheek posterior: SQUAMOUS CELL CARCINOMA IN SITU, PRESENT AT THE BASE OF THE SPECIMEN (D04.39) (see microscopic description and comment) 12:45 PM [facility] DERMATOPATHOLOGY LABORATORY Clinical History A-B: R/O NMSC 12:45 PM T DERMATOPATHOLOGY LABORATORY Gross Description Specimen A: Received is one formalin filled container labeled with the patient's name and designated right cheek anterior. The specimen consists of a shave biopsy measuring 5x5x1 mm. Jar 0. Specimen B: Received is one formalin filled container labeled with the patient's name and designated right cheek posterior. The specimen consists of a shave biopsy measuring 6x6x1 mm. Jar 0. 12:45 PM [facility] DERMATOPATHOLOGY LABORATORY Microscopic Description Specimen A. SKIN, right cheek anterior: The epidermis shows parakeratosis, full thickness disorderly maturation of keratinocytes, mitoses at different levels, and dyskeratotic cells. The lesion extends to the base of the biopsy. COMMENT: An invasive squamous cell carcinoma cannot be ruled out. Specimen B. SKIN, right cheek posterior: The epidermis shows parakeratosis, full thickness disorderly maturation of keratinocytes, mitoses at different levels, and dyskeratotic cells. The lesion extends to the base of the biopsy. COMMENT: An invasive squamous cell carcinoma cannot be ruled out. 12:45 PM [facility] DERMATOPATHOLOGY LABORATORY Disclaimer An external and internal positive and negative controls are appropriate for the histochemical, immunohistochemical and immunofluorescence stain(s) in this case (if any), except where stated explicitly. The performance characteristics of the stain(s) cited in this report were developed and its performance characteristic determined by the Dermatopathology Laboratory at [facility], directed by Dr. Batool Mckoy. These tests need not be, and therefore are not, approved by the [place] Food and Drug Administration. The tests are used for clinical purposes. Billing Codes Specimen Charges Stain Charges 75082 34561 1 1 12:45 PM CDT DERMATOPATHOLOGY LABORATORY Embedded Images 12:45 PM CDT DERMATOPATHOLOGY LABORATORY Pathology/Cytology TISSUE SPECIMEN FROM SKIN / Unknown 10/17/2023 9:57 AM CDT 10/18/2023 7:54 AM CDT Miscellaneous samples (specimen) TISSUE SPECIMEN FROM SKIN / Unknown 10/17/2023 9:57 AM CDT 10/18/2023 7:54 AM CDT Radha Ravi DO LAB - PATHOLOGY/C YTOLOGY ORDERABLES DERMATOPATHOLOGY LABORATORY [facility] - Department of Dermatology Formerly [facility] Medicine [address] [place] [address], [address] [phone] documented in this encounter Visit Diagnoses Not on filedocumented in this encounter Care Teams Radiation Therapy Technologist Relationship Specialty Start Date End Date Marko Muñiz MD [address] [address] PCP - General 12/27/20 documented as of this encounter
--- OUTSIDE RECORDS SUMMARY | 2024-09-01 07:12 | XMS_ITS | Encounter Summary ---
Author Organization [facility] Address [address] [facility] [place] [address] Care Team Providers Care Supervisor Engine Assembly Name Role Phone Marko Muñiz MD Primary Care Provider + Encounter Details Date Type Department Care Team (Late st Contact Info) Description 04/24/2024 Lab Requisition [facility] - DermPath Lab [address] [facility] [place] [phone] Radha Ravi DO [address] [facility] [address] [place] [address] Social History Tobacco Use Types Packs/Day Years Used Date Smoking Tobacco: Never Assessed Sex and Gender Information Value Date Recorded Sex Assigned at Not on file Gender Identity Not on file Sexual Orientation Not on file documented as of this encounter Plan of Treatment Not on file documented as of this encounter Procedures Procedure Name Priority Date/Time Associated Diagnosis Comments DERMATOPATHOLOGY Routine 04/24/2024 10:1 7 AM CDT documented in this encounter Results * DERMATOPATHOLOGY (04/24/2024 10:17 AM CDT) Case Report Dermatopathology Report Case: [id number] Authorizing Provider: Radha Ravi DO Collected: 04/24/2024 10:17 AM Ordering Location: [facility] - Received: 04/25/2024 12:27 PM DermPath Lab Pathologist: Farzaneh Hickey MD Specimens: A) - Skin, left neck B) - Skin, mid crown of scalp 3:40 PM CDT DERMATOPATHOLOGY LABORATORY Final Diagnosis Specimen A. SKIN, left neck: BASAL CELL CARCINOMA, NODULAR TYPE (C44.41) Specimen B. 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 The specimen consists of a shave biopsy measuring 6x5x1 mm. Jar 0. Specimen B: Received is one formalin filled container labeled with the patient's name and designated mid crown of scalp. The specimen consists of a shave biopsy measuring 6x5x1;5x5x1 mm. Jar 0. 3:40 PM CDT DERMATOPATHOLOGY LABORATORY Microscopic Description Specimen A. SKIN, left neck: Within the dermis there are aggregates of basaloid cells with a high nuclear to cytoplasmic ratio and peripheral palisading. Specimen B. SKIN, mid crown of scalp: The epidermis shows parakeratosis, full thickness disorderly maturation of keratinocytes, mitoses at different levels, and dyskeratotic cells. Tangential sectioning of adnexal extension is noted. 3:40 PM CDT DERMATOPATHOLOGY LABORATORY Disclaimer An external and internal positive and negative controls are appropriate for the histochemical, immunohistochemical and immunofluorescence stain(s) in this case (if any), except where stated explicitly. The performance characteristics of the stain(s) cited in this report were developed and its performance characteristic determined by the Dermatopathology Laboratory at [facility], directed by Dr. Batool Mckoy. These tests need not be, and therefore are not, approved by the [place] Food and Drug Administration. The tests are used for clinical purposes. Billing Codes Specimen Charges Stain Charges 05110 32706 1 1 3:40 PM CDT DERMATOPATHOLOGY LABORATORY Embedded Images 3:40 PM CDT DERMATOPATHOLOGY LABORATORY Pathology/Cytology TISSUE SPECIMEN FROM SKIN / Unknown 04/24/2024 10:17 AM CDT 04/25/2024 12:27 PM CDT Miscellaneous samples (specimen) TISSUE SPECIMEN FROM SKIN / Unknown 04/24/2024 10:17 AM CDT 04/25/2024 12:27 PM CDT Radha Ravi DO LAB - PATHOLOGY/C YTOLOGY ORDERABLES DERMATOPATHOLOGY LABORATORY [facility] - Department of Dermatology [address], [address] [phone] documented in this encounter Visit Diagnoses Not on filedocumented in this encounter Care Teams Supervisor Engine Assembly Relationship Specialty Start Date End Date Marko Muñiz MD [address] [address] PCP - General 12/27/20 documented as of this encounter
--- OUTSIDE RECORDS SUMMARY | 2024-09-01 07:12 | XMS_ITS | Encounter Summary ---
Author Organization [facility] Address [address] [facility] [place] [address] Care Team Providers Care Pediatric Physician Assistant Name Role Phone Marko Muñiz MD Primary Care Provider + Encounter Details Date Type Department Care Team (Late st Contact Info) Description 03/22/2023 Lab Requisition [facility] - DermPath Lab [address] [facility] [place] [phone] Radha Ravi DO [address] [facility] 3 [place] [address] Social History Tobacco Use Types Packs/Day Years Used Date Smoking Tobacco: Never Assessed Sex and Gender Information Value Date Recorded Sex Assigned at Not on file Gender Identity Not on file Sexual Orientation Not on file documented as of this encounter Plan of Treatment Not on file documented as of this encounter Procedures Procedure Name Priority Date/Time Associated Diagnosis Comments DERMATOPATHOLOGY Routine 03/22/2023 9:54 AM CDT documented in this encounter Results * DERMATOPATHOLOGY (03/22/2023 9:54 AM CDT) Case Report Dermatopathology Report Case: [id number] Authorizing Provider: Radha Ravi DO Collected: 03/22/2023 09:54 AM Ordering Location: [facility] DermPath Lab Received: 03/23/2023 08:07 AM Pathologist: Ramandeep Matthews MD Specimen: Skin, right zygoma 1:46 PM CDT DERMATOPATHOLOGY LABORATORY Final Diagnosis Specimen A. SKIN, right zygoma: SQUAMOUS CELL CARCINOMA, ACANTHOLYTIC TYPE (C44.329) 1:46 PM CDT DERMATOPATHOLOGY LABORATORY Clinical History R/O NMSC 3 1:46 PM T DERMATOPATHOLOGY LABORATORY Gross Description Specimen A: Received is one formalin filled container labeled with the patient's name and designated right zygoma. The specimen consists of a shave biopsy measuring 5x4x1 mm. Jar 0. 3 1:46 PM T DERMATOPATHOLOGY LABORATORY Microscopic Description Specimen A. SKIN, right zygoma: Sections show skin with irregularly shaped nests of keratinocytes with evidence of cornification. In some nests, there is loss of cohesion between the neoplastic cells, as well as individual dyskeratotic cells that lack intercellular bridges. 3 1:46 PM T DERMATOPATHOLOGY LABORATORY Disclaimer An external and internal positive and negative controls are appropriate for the histochemical, immunohistochemical and immunofluorescence stain(s) in this case (if any), except where stated explicitly. The performance characteristics of the stain(s) cited in this report were developed and its performance characteristic determined by the Dermatopathology Laboratory at [facility], directed by Dr. Batool Mckoy. These tests need not be, and therefore are not, approved by the [place] Food and Drug Administration. The tests are used for clinical purposes. Billing Codes Specimen Charges Stain Charges 34243 1 3 1:46 PM CDT DERMATOPATHOLOGY LABORATORY Embedded Images 3 1:46 PM T DERMATOPATHOLOGY LABORATORY Pathology/Cytolo gy TISSUE SPECIMEN FROM SKIN / Unknown 03/22/2023 9:54 AM CDT 03/23/2023 8:07 AM CDT Radha Ravi DO LAB - PATHOLOGY/C YTOLOGY ORDERABLES DERMATOPATHOLOGY LABORATORY [facility] - Department of Dermatology [address], [address] [phone] documented in this encounter Visit Diagnoses Not on filedocumented in this encounter Care Teams Pediatric Physician Assistant Relationship Specialty Start Date End Date Marko Muñiz MD [address] [address] PCP - General 12/27/20 documented as of this encounter
== END 2024-09-01 07:08 | disposition home or self-care (01) ==
PROVIDERS: PCP Family Medicine Adolescent Medicine
DX: Z85.51 Personal history of malignant neoplasm of bladder (principal); N20.0 Calculus of kidney; N40.0 Benign prostatic hyperplasia without lower urinary tract symptoms
CPT/HCPCS: 74178; Q9967

== ENCOUNTER 2024-10-31 10:21 | Outpatient (CLI) | payer OTHER, SELFPAY ==
--- OUTSIDE RECORDS SUMMARY | 2024-10-31 10:48 | XMS_ITS | Referral Summary ---
Author Organization [place] [address] Address [address] [address] Care Team Providers Care Cannery Tender Engineer Name Role Phone Marko Muñiz MD Primary Care Prov ider Encounters Date Type Department Care Team Description 10/21/2024 Telephone [facility] Medical [facility] Cardiology [address] [place] [address] [address] [place] [address] Ivan Cortes MD 09/23/2024 8:00 AM CDT Ancillary Procedure [facility] Cardiology [address] [place] [address] [place] [phone] Automatic implantable cardiac defibrillator in situ [Z95.810] (Primary Dx); NICM (nonischemic cardiomyopathy) (HCC); Left ventricular hypertrophy 08/29/2024 11:00 AM BEAD WIRE INSULATOR Office Visit [facility] Cardiology [address] [place] [phone] Cora Davila NP Coronary artery disease involving kletsel dehe wintun coronary artery of kletsel dehe w[place]un heart without angina pectoris (Primary Dx); Cardiomyopathy, unspecified type (HCC); Low blood pressure reading; Automatic implantable cardiac defibrillator in situ from [...] enteric coated tabletIndication s:Coronary artery disease involving kletsel dehe wintun coronary artery of kletsel de[place] w[place] heart, angina presence unspecified Take 1 tablet (81 mg total) by mouth daily 30 tablet 11 0 Active finasteride (PROSCAR) 5 mg tablet Take 1 tablet (5 mg total) by mouth daily 2 Active tamsulosin (FLOMAX) 0.4 mg extended release capsule Take 1 capsule (0.4 mg total) by mouth daily Active Entresto 49-51 mg tabletIndication s:Chronic systolic heart failure (HCC) TAKE 1 TABLET BY MOUTH TWICE A DAY 60 tablet 11 4 Active icosapent ethyL (VASCEPA) 1 gram capsule TAKE 2 CAPSULES BY MOUTH TWICE A DAY 120 capsule 11 4 Active carvediloL (COREG) 12.5 mg tabletIndication s:Chronic systolic heart failure (HCC) TAKE 1 TABLET BY MOUTH TWICE A DAY WITH FOOD 180 tablet 2 4 Active multivitamin-min erals-lutein (Multivitamin 50 Plus) tablet Take by mouth Act sima spironolactone (ALDACTONE) 25 mg tablet TAKE 1/2 TABLET BY MOUTH DAILY 45 tablet 3 5 Active Active Problems Problem Noted Date Diagnosed Date Visit for wound check 02/03/2020 Visit for wound check 01/27/2020 Automatic implantable cardiac defibrillator in s itu 01/22/2020 Overview (01/22/2020): EverPowerroniMiTurno Single ICD. Dx; NICM. [facility] EverPowerroniMiTurno remote home monitoring. 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 08/04/2019 Hyperlipidemia associated with type 2 diabetes m ellitus 08/04/2019 Diabetes mellitus type II, non insulin dependent 08/04/2019 Left ventricular hypertrophy 08/04/2019 Cardiomyopathy 08/04/2019 [...] on file Legal Sex Male 12:47 AM BEAD WIRE INSULATOR Gender Identity Not on file Sexual Orientation Not on file Last Filed Vital Signs Vital Sign Reading Time Taken Comments Blood Pressure 92/42 08/29/2024 10:59 AM BEAD WIRE INSULATOR Pulse 71 08/29/2024 10:59 AM BEAD WIRE INSULATOR Temperature 36.4 C (97.5 F) 12/26/2019 11:11 AM CDT Respiratory Rate 13 08/15/2019 3:53 PM BEAD WIRE INSULATOR Oxygen Saturation 98% 08/29/2024 10:59 AM BEAD WIRE INSULATOR Inhaled Oxygen Concentration - - Weight 74.4 kg (164 lb) 08/29/2024 10:59 AM BEAD WIRE INSULATOR Height 165.1 cm (5' 5 ) 08/29/2024 10:59 AM BEAD WIRE INSULATOR Body Mass Index 27.29 08/29/2024 10:59 AM BEAD WIRE INSULATOR Plan of Treatment Not on file Medical Devices Implanted Type Area Lens Grinding Machine Operator Device Identifier Shelf Expiration Date Model / Serial / Lot Paddle8 [id number] Synergy 2.5mm 16mm 144cm Radiopaque 1 Access Port Inflation Lumen - [id number] Implanted:Qty: 1 on 08/14/2019 by Jose Levin MD at [facility] Paddle8 11/17/2020 [id number] / / [id number] Device Closure Angio-Seal Vip Bondek-Plus Polyglyd L70 Cm Od6 Fr Odsec.035 In Vascular - [id number] Implanted:Qty: 1 on 08/14/2019 by Jose Levin MD at [facility] [employer] [id number] / / Procedures Procedure Name Priority Date/Time Associated Diagnosis Comments DEVICE CHECK - REMOTE Routine 09/23/2024 1:36 PM CDT NICM (nonischemic cardiomyopathy) (HCC) Left ventricular hypertrophy LIPID PANEL Routine 11/22/2022 BASIC METABOLIC PANEL Routine 01/13/2020 1:13 PM CDT from Last 3 Months or Most Recently Relevant to Health Maintenance Results * DEVICE CHECK - REMOTE (09/23/2024 1:36 PM CDT) Anatomical Region Laterality Modality Other Narrative 09/25/2024 12:36 PM CDT EverPowerroniMiTurno Single ICD. Dx; NICM. DOI 01/20/2020-[facility]. Biotronik remote home monitoring. Routine VDI ICD remote. Normal device function. Battery function-3.12V, 84% remaining battery life to ABRAHAM. Charge time-9.5 seconds. Appropriate lead measurements noted. Presenting rhythm: ASVS. SPOOL MAKER-0%. No AT/AF episodes noted. No Ventricular arrhythmias noted. Medications; Entresto, Coreg 12.5 mg BID, ASA 81 mg. See scanned report. Office device f/u 10/21/2025. Biotronik remote f/u 12/30/2024. Arabella Orr, RN Ivan Cortes MD [facility] Final Result * Lipid panel (11/22/2022) SCRIBED Cholesterol, Total 105 <200 [facility] SCRIBED HDL 20 >40 [facility] SCRIBED LDL 45 <100 [facility] SCRIBED Triglycerides 254 <150 [facility] Blood Historical Provider LAB BLOOD ORDERABLES Edit ed Result - Final [facility] * (ABNORMAL) Basic metabolic panel (01/13/2020 1:13 PM CDT) Glucose 151(H) 65 - 99 mg/dL [facility] [...] - 01/14/2020 8:12 AM CDT Performed at: [facility] [address] [id number] Yoga Teacher: Naeem Oliveros PhD, Phone: [phone] Nazia Goldstein MD LAB BLOOD ORDERABLES Final Result [facility] - 01 from Last 3 Months or Most Recently Relevant to Health Maintenance Insurance [facility] [employer] PPO Care Teams Cannery Tender Engineer Relationship Specialty Start Date End Date Marko Muñiz MD [address] [place] [address] PCP - General Family Medicine 07/15/19
--- OUTSIDE RECORDS SUMMARY | 2024-10-31 10:48 | XMS_ITS | Encounter Summary ---
Author Organization [facility] Address [address] [place] [address] Care Team Providers Care Employee Relations Manager Name Role Phone Marko Muñiz MD Primary Care Provider + Encounter Details Date Type Department Care Team (Late st Contact Info) Description 04/24/2024 Lab Requisition [facility] - DermPath Lab [address] [facility], [facility] [place] [phone] Radha Ravi DO [address] [facility] 3 [place] [address] Social History Tobacco Use Types Packs/Day Years Used Date Smoking Tobacco: Never Assessed Sex and Gender Information Value Date Recorded Sex Assigned at Not on file Legal Sex Male 1:10 PM CDT Gender Identity Not on file Sexual Orientation Not on file documented as of this encounter Plan of Treatment Not on file documented as of this encounter Procedures Procedure Name Priority Date/Time Associated Diagnosis Comments DERMATOPATHOLOGY Routine 04/24/2024 10:1 7 AM CDT documented in this encounter Results * DERMATOPATHOLOGY (04/24/2024 10:17 AM CDT) Case Report Dermatopathology Report Case: [id number] Authorizing Provider: Radha Ravi DO Collected: 04/24/2024 10:17 AM Ordering Location: [facility] - Received: 04/25/2024 12:27 PM [...] of adnexal extension is noted. 3:40 PM T DERMATOPATHOLOGY LABORATORY Disclaimer An external [...] purposes. Billing Codes Specimen Charges Stain Charges 78387 98196 1 1 3:40 PM CDT DERMATOPATHOLOGY LABORATORY Embedded Images 3:40 PM CDT DERMATOPATHOLOGY LABORATORY Pathology/Cytology TISSUE SPECIMEN FROM SKIN / Unknown 04/24/2024 10:17 AM CDT 04/25/2024 12:27 PM CDT Miscellaneous samples (specimen) TISSUE SPECIMEN FROM SKIN / Unknown 04/24/2024 10:17 AM CDT 04/25/2024 12:27 PM CDT us Radha Ravi DO LAB - PATHOLOGY/CYTOLOGY ORDERABLES Final Result DERMATOPATHOLOGY LABORATORY [facility] - Department of Dermatology [facility] Medicine [address] [place] [address], [address] [phone] documented in this encounter Visit Diagnoses Not on filedocumented in this encounter Care Teams Employee Relations Manager Relationship Specialty Start Date End Date Marko Muñiz MD [address] [place] [address] PCP - General 12/27/20 documented as of this encounter
--- OUTSIDE RECORDS SUMMARY | 2024-10-31 10:48 | XMS_ITS | Encounter Summary ---
Author Organization [facility] Address [address] [facility] [place] [address] Care Team Providers Care Vocational Nursing Instructor Name Role Phone Marko Muñiz MD Primary Care Provider + Encounter Details Date Type Department Care Team (Late st Contact Info) Description 03/22/2023 Lab Requisition [facility] - DermPath Lab [address] [facility], [place] [phone] Radha Ravi DO [address] [facility] 3 [place] [address] Social History Tobacco Use Types Packs/Day Years [...] AM CDT) Case Report Dermatopathology Report Case: [id number] Authorizing Provider: Radha Ravi DO Collected: 03/22/2023 09:54 AM Ordering Location: [facility] DermPath Lab Received: 03/23/2023 08:07 AM Pathologist: Ramandeep Matthews MD Specimen: Skin, right zygoma 3 1:46 PM CDT DERMATOPATHOLOGY LABORATORY Final Diagnosis Specimen A. 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 The specimen consists of a shave biopsy measuring 5x4x1 mm. Jar 0. 3 1:46 PM CDT DERMATOPATHOLOGY LABORATORY Microscopic Description Specimen A. SKIN, right zygoma: Sections show skin with irregularly shaped nests of keratinocytes with evidence of cornification. In some nests, there is loss of cohesion between the neoplastic cells, as well as individual dyskeratotic cells that lack intercellular bridges. 3 1:46 PM CDT DERMATOPATHOLOGY LABORATORY Disclaimer An external and internal positive and negative controls are appropriate for the histochemical, immunohistochemical and immunofluorescence stain(s) in this case (if any), except where stated explicitly. The performance characteristics of the stain(s) cited in this report were developed and its performance characteristic determined by the Dermatopathology Laboratory at [facility], directed by Dr. Batool Mckoy. These tests need not be, and therefore are not, approved by the [place] Food and Drug Administration. The tests are used for clinical purposes. Billing Codes Specimen Charges Stain Charges 05552 1 3 1:46 PM CDT DERMATOPATHOLOGY LABORATORY Embedded Images 3 1:46 PM CDT DERMATOPATHOLOGY LABORATORY Pathology/Cytolo gy TISSUE SPECIMEN FROM SKIN / Unknown 03/22/2023 9:54 AM CDT 03/23/2023 8:07 AM CDT us Radha Ravi DO LAB - PATHOLOGY/CYTOLOGY ORDERABLES Final Result DERMATOPATHOLOGY LABORATORY [facility] - Department of Dermatology [address], 3rd [place] [address], [facility] [phone] documented in this encounter Visit Diagnoses Not on filedocumented in this encounter Care Teams Vocational Nursing Instructor Relationship Specialty Start Date End Date Marko Muñiz MD [address] [address] PCP - General 12/27/20 documented as of this encounter
--- OUTSIDE RECORDS SUMMARY | 2024-10-31 10:48 | XMS_ITS | Encounter Summary ---
Author Organization [facility] Address [address] [facility] [place] [address] Care Team Providers Care Electrician Chief Name Role Phone Marko Muñiz MD Primary Care Provider + Encounter Details Date Type Department Care Team (Late st Contact Info) Description 10/17/2023 Lab Requisition [facility] - DermPath Lab [address] [facility], [facility] [phone] Radha Ravi DO [address] [facility] 3 [place] [address] Social History Tobacco Use Types Packs/Day Years [...] AM CDT) Case Report Dermatopathology Report Case: [id number] Authorizing Provider: Radha Ravi DO Collected: 10/17/2023 09:57 AM Ordering Location: [facility] - Received: 10/18/2023 07:54 AM [...] comment) 12:45 PM [facility] DERMATOPATHOLOGY LABORATORY Clinical History A-B: R/O NMSC [...] 0. 12:45 PM [facility] DERMATOPATHOLOGY LABORATORY Microscopic Description Specimen A. SKIN, [...] out. 12:45 PM [facility] DERMATOPATHOLOGY LABORATORY Disclaimer An external and internal positive and negative controls are appropriate for the histochemical, immunohistochemical and immunofluorescence stain(s) in this case (if any), except where stated explicitly. The performance characteristics of the stain(s) cited in this report were developed and its performance characteristic determined by the Dermatopathology Laboratory at [facility], directed by Dr. Batool Mckoy. These tests need not be, and therefore are not, approved by the [place] Food and Drug Administration. The tests are used for clinical purposes. Billing Codes Specimen Charges Stain Charges 13087 86887 1 1 4 12:45 PM T DERMATOPATHOLOGY LABORATORY Embedded Images 12:45 PM CDT DERMATOPATHOLOGY LABORATORY Pathology/Cytology TISSUE SPECIMEN FROM SKIN / Unknown 10/17/2023 9:57 AM CDT 10/18/2023 7:54 AM CDT Miscellaneous samples (specimen) TISSUE SPECIMEN FROM SKIN / Unknown 10/17/2023 9:57 AM CDT 10/18/2023 7:54 AM CDT us Radha Ravi DO LAB - PATHOLOGY/CYTOLOGY ORDERABLES Final Result DERMATOPATHOLOGY LABORATORY [facility] - Department of Dermatology [facility] [address] [place] [address], [address] Floor [address] [phone] documented in this encounter Visit Diagnoses Not on filedocumented in this encounter Care Teams Electrician Chief Relationship Specialty Start Date End Date Marko Muñiz MD [address] [place] [address] PCP - General 12/27/20 documented as of this encounter
--- OUTSIDE RECORDS SUMMARY | 2024-10-31 10:48 | XMS_ITS | Clinical Summary ---
Author Organization [facility] [address] Address [address] [place] [address] Care Team Providers Care Biology Laboratory Assistant Name Role Phone Marko Muñiz MD [...] enteric coated tabletIndication s:Coronary artery disease involving [place] coronary artery of [place] heart, angina presence unspecified Take 1 tablet [...] TWICE A DAY 120 capsule 4 Active carvediloL (COREG) 12.5 mg tabletIndication [...] defibrillator in s itu 01/22/2020 Overview (01/22/2020): Replication MedicalroniThe Association of [employer] & Lounge Establishments Single ICD. Dx; NICM. DOI 01/20/2020-[facility]. [employer] remote home monitoring. 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 [place] heart with stable angina pectoris 08/04/2019 Hyperlipidemia associated with type 2 diabetes m ellitus 08/04/2019 Diabetes mellitus type II, non insulin dependent 08/04/2019 Left ventricular hypertrophy 08/04/2019 Cardiomyopathy 08/04/2019 Basal cell carcinoma (BCC) of skin of ear 2014 Basal cell carcinoma (BCC) of skin of nose 02/05 Encounters Date Type Department Care Team Description 10/21/2024 Telephone [facility] Cardiology [address] [facility] [address] [place] [phone] Ivan Cortes MD 09/23/2024 8:00 AM CDT Ancillary Procedure [facility] Cardiology [facility] [facility] [address] [place] [phone] Automatic implantable cardiac defibrillator in situ [Z95.810] (Primary Dx); NICM (nonischemic cardiomyopathy) (HCC); Left ventricular hypertrophy 08/29/2024 11:00 AM ENGRAVER STEEL PLATE Office Visit [facility] Cardiology [address] [facility] [address] [place] [address] Cora Davila NP Coronary artery disease involving [place] coronary artery of [place] heart without angina pectoris (Primary Dx); Cardiomyopathy, unspecified type (HCC); Low blood pressure reading; Automatic implantable cardiac defibrillator in situ from Last 3 Months Surgical History Surgery [...] on file Legal Sex Male 12:47 AM ENGRAVER STEEL PLATE Gender Identity Not on file Sexual Orientation Not on file Obstetrics History Last Filed Vital Signs Vital Sign Reading Time Taken Comments Blood Pressure 92/42 08/29/2024 10:59 AM ENGRAVER STEEL PLATE Pulse 71 08/29/2024 10:59 AM ENGRAVER STEEL PLATE Temperature 36.4 C (97.5 F) 12/26/2019 11:11 AM CDT Respiratory Rate 13 08/15/2019 3:53 PM ENGRAVER STEEL PLATE Oxygen Saturation 98% 08/29/2024 10:59 AM ENGRAVER STEEL PLATE Inhaled Oxygen Concentration - - Weight 74.4 kg (164 lb) 08/29/2024 10:59 AM ENGRAVER STEEL PLATE Height 165.1 cm (5' 5 ) 08/29/2024 10:59 AM ENGRAVER STEEL PLATE Body Mass Index 27.29 08/29/2024 10:59 AM ENGRAVER STEEL PLATE Plan of Treatment Health Maintenance Due Date [...] Additional history exists Lipid Panel 11/23/2023 11/22/2022, 08, 04/26/2021, Additional history exists Influenza Vaccine (Season Ended) 2025 04/09/20 13 Medical Devices Implanted Type Area Staff Midwife/Apprenticeship Director Device Identifier Shelf Expiration Date Model / Serial / Lot EnergyDeck [id number] Synergy 2.5mm 16mm 144cm Radiopaque 1 Access Port Inflation Lumen - [id number] Implanted:Qty: 1 on 08/14/2019 by Jose Levin MD at [facility] [employer] 11/17/2020 [id number] / / LectureTools [id number] Device Closure Angio-Seal Vip Bondek-Plus Polyglyd L70 Cm Od6 Fr Odsec.035 In Vascular - [id number] Implanted:Qty: 1 on 08/14/2019 by Jose Levin MD at [facility] [employer] [id number] / / Procedures Procedure Name Priority Date/Time [...] Modality Other Narrative 09/25/2024 12:36 PM CDT Replication Medicalronik Single ICD. Dx; NICM. DOI 01/20/2020-[facility]. Biot[employer] remote home monitoring. Routine VDI ICD remote. Normal device function. Battery function-3.12V, 84% remaining battery life to ABRAHAM. Charge time-9.5 seconds. Appropriate lead measurements noted. Presenting rhythm: ASVS. TOWN PLANNER-0%. No AT/AF episodes noted. No Ventricular arrhythmias noted. Medications; Entresto, Coreg 12.5 mg BID, ASA 81 mg. See scanned report. Office device f/u 10/21/2025. Biotronik remote f/u 12/30/2024. Arabella Orr, RN Ivan Cortes MD CV CARDIAC SERVICES PROCE [facility] Final Result * Lipid panel (11/22/2022) [...] 01/14/2020 8:12 AM CDT Performed at: [facility] [address] [id number] Mechanist: Naeem Oliveros PhD, Phone: [phone] Nazia Goldstein MD LAB BLOOD ORDERABLES Final Result [facility] - 01 from Last 3 Months or Most Recently Relevant to Health Maintenance Insurance [facility] HEALTHCARE [facility] ADVANTAGE CHOICE PPO Care Teams Biology Laboratory Assistant Relationship Specialty Start Date End Date Marko Muñiz MD [address] [facility] [place] [address] PCP - General Family Medicine 07/15/19
--- OUTSIDE RECORDS SUMMARY | 2024-10-31 10:48 | XMS_ITS | Encounter Summary ---
Author Organization [facility] Address [address] [facility] [place] [address] Care Team Providers Care Health Promotion Educator Name Role Phone Marko Muñiz MD Primary Care Provider + Encounter Details Date Type Department Care Team (Late st Contact Info) Description 05/12/2024 Lab Requisition [facility] - DermPath Lab [address] [facility], [facility] [place] [phone] Radha Ravi DO [address] [facility] 3 [place] [address] Social History Tobacco Use Types Packs/Day Years [...] Comments DERMATOPATHOLOGY Routine 05/12/2024 12:2 5 PM TANKROOM TENDER documented in this encounter Results * DERMATOPATHOLOGY (05/12/2024 12:25 PM TANKROOM TENDER) Case Report Dermatopathology Report Case: [id number] Authorizing Provider: Radha Ravi DO Collected: 05/12/2024 12:25 PM Ordering Location: [facility] - Received: 05/13/2024 07:41 AM DermPath Lab Pathologist: Linda Celis MD Specimen: Skin, left neck 1:50 PM TANKROOM TENDER DERMATOPATHOLOGY LABORATORY Final Diagnosis Specimen A. SKIN, left neck: BASAL CELL CARCINOMA (C44.41) PRESENT AT LATERAL MARGIN DERMAL SCAR (L90.5) 4 1:50 PM [facility] DERMATOPATHOLOGY LABORATORY Clinical History BCC vs proven 4 1:50 PM [facility] DERMATOPATHOLOGY LABORATORY Gross Description Specimen A: Received is one formalin filled container labeled with the patient's name and designated left neck. The specimen consists of a non-oriented ellipse of skin measuring 46q28w7 mm. The epidermal surface is unremarkable. The margin is inked green. The 12 o'clock and 6 o'clock tips are submitted in cassette 1. The remainder of the ellipse is serially sectioned and submitted in cassette 2-3. Jar 0. 1:50 PM [facility] DERMATOPATHOLOGY LABORATORY Microscopic Description Specimen A. SKIN, [...] perpendicular to the skin surface. 1:50 PM [facility] DERMATOPATHOLOGY LABORATORY Disclaimer An external and internal [...] purposes. Billing Codes Specimen Charges Stain Charges 40387 1 1:50 PM [facility] DERMATOPATHOLOGY LABORATORY Embedded Images 1:50 PM [facility] DERMATOPATHOLOGY LABORATORY Pathology/Cytolo gy TISSUE SPECIMEN FROM SKIN / Unknown 05/12/2024 12:25 PM TANKROOM TENDER 05/13/2024 7:41 AM TANKROOM TENDER us Radha Ravi DO LAB - PATHOLOGY/CYTOLOGY ORDERABLES Final Result DERMATOPATHOLOGY LABORATORY [facility] - Department of [facility] [address] [place] [address], [address] [phone] documented in this encounter Visit Diagnoses Not on filedocumented in this encounter Care Teams Health Promotion Educator Relationship Specialty Start Date End Date Marko Muñiz MD [address] [address] PCP - General 12/27/20 documented as of this encounter
--- OUTSIDE RECORDS SUMMARY | 2024-10-31 10:48 | XMS_ITS | Continuity of Care Document ---
Author Organization [facility] Address [address] [place] [address] Phone Care Team Providers Care Shoe Puller Name Role Phone Yohannes Alvino Unavailable Unavailable Procedures Procedure Date Eye Exam, New Patient Refraction Advance Directives Directive Yes / No Effective Date File Name No Information Encounters Encounter Description Practice Location Reason(s) For Visit Diagnoses Date Provider Providers Copied on Encounter [facility], [address], [place], [place], [id number], tel:[phone] [facility] No Information [address] Yohannes Alvino. [address] [facility] [address], [place], [address], [place]. tel:[phone] Family History Family Member Type Diagnosis Age At Onset No Information Payers Payer name Insurance type Covered republican ID Authoriza tidavid(s) [facility] CI [id number] Social History Type Description Quantity Date Captured [...]
--- OUTSIDE RECORDS SUMMARY | 2024-10-31 10:48 | XMS_ITS | Clinical Summary ---
Author Organization [facility] Address [address] [place] [address] Care Team Providers Care Machine I Trimmer Name Role Phone Unavailable Primary Care Provider Unavailabl e Social History Tobacco Use Types Packs/Day Years Used Date Smoking Tobacco: Never Assessed Sex and Gender Information Value Date Recorded Sex Assigned at Not on file Legal Sex Male 8:13 PM CDT Gender Identity Not on file Sexual Orientation Not on file Plan of Treatment Health Maintenance Due Date Last Done Comments DTaP, Tdap and Td Vaccines ( 1 - Tdap) 1964 Pneumococcal Vaccine: 50+ Ye ars (1 of 1 - PCV) 1994 Zoster Vaccines (1 of 2) 1994 RSV Immunization or 60+ Years (1 - 1-dose 75+ series) 2019 COVID-19 Vaccine ( - 2023-2 5 season) 2024 Meningococcal B Vaccine Aged Out No l onger eligible based on patient's age to complete this topic Meningococcal Vaccine Aged Out No adonis lucero eligible based on patient's age to complete this topic RSV Immunizations Under 20 Months Aged Out No longer eligible based on patient's age to complete this topic
--- OUTSIDE RECORDS SUMMARY | 2024-10-31 10:48 | XMS_ITS ---
Author Organization [facility] [address] Address [address] [place] [address] Care Team Providers Care Consumer Banker Name Role Phone Marko Muñiz MD Primary Care Prov ider Active Problems Problem Noted Date Diagnosed Date Visit for wound check 02/03/2020 Visit for wound check 01/27/2020 Automatic implantable cardiac defibrillator in s itu 01/22/2020 Overview (01/22/2020): RaptroniSummuS Render Single ICD. Dx; NICM. DOI 01/20/2020-[facility]1010[facility]. Raptronik remote home monitoring. At risk for sudden cardiac 01/13/2020 Chronic prostatitis 01/13/2020 Hypertriglyceridemia 09/15/2019 Chronic systolic heart failure 08/25/2019 Shortness of breath 08/25/2019 Coronary artery disease of n ative artery of teller heart with stable angina pectoris 08/04/2019 Hyperlipidemia [...]
--- OUTSIDE RECORDS SUMMARY | 2024-10-31 10:48 | XMS_ITS | Encounter Summary ---
Author Organization [facility] Address [address] [facility] [place] [address] Care Team Providers Care Statement Clerks Manager Name Role Phone Marko Muñiz MD Primary Care Provider + Encounter Details Date Type Department Care Team (Late st Contact Info) Description 12/27/2020 Lab Requisition [facility] DermPath Lab [address] [facility], [place] [phone] Radha Ravi DO [address] [facility] 3 [place] [address] Social History Tobacco Use Types Packs/Day Years [...] AM CDT) Case Report Dermatopathology Report Case: [id number] Authorizing Provider: Radha Ravi DO Collected: 12/24/2020 12:00 AM Ordering Location: [facility] DermPath Lab Received: 12/27/2020 09:05 AM Pathologist: Farzaneh Hickey MD Specimens: A) - Skin, forehead B) - Skin, right forearm 10:17 AM CDT DERMATOPATHOLOGY LABORATORY Final Diagnosis Specimen A. SKIN, forehead: BASAL CELL CARCINOMA, SUPERFICIAL MULTIFOCAL (C44.319) Specimen B. SKIN, right forearm: ACTINIC KERATOSIS, LICHENOID (L57.0) SOLAR LENTIGO (L81.4) (see microscopic description) 10:17 AM [facility] DERMATOPATHOLOGY LABORATORY Clinical History A: R/O BCC. B: R/O melanoma. 10:17 AM [facility] DERMATOPATHOLOGY LABORATORY Gross Description Specimen A: Received is one formalin filled container labeled with the patient's name and designated forehead. The specimen consists of a shave measuring 3n0h0eu. Jar 0. Specimen B: Received is one formalin filled container labeled with the patient's name and designated right forearm. The specimen consists of a shave measuring 8a6i4qq. Jar 0. 10:17 AM [facility] DERMATOPATHOLOGY LABORATORY Microscopic Description Specimen A. SKIN, [...] sections were obtained and reviewed. 10:17 AM [facility] DERMATOPATHOLOGY LABORATORY Disclaimer An external and internal positive and negative controls are appropriate for the histochemical, immunohistochemical and immunofluorescence stain(s) in this case (if any), except where stated explicitly. The performance characteristics of the stain(s) cited in this report were developed and its performance characteristic determined by the Dermatopathology Laboratory at [facility], directed by Dr. Batool Mckoy. These tests need not be, and therefore are not, approved by the [place] Food and Drug Administration. The tests are used for clinical purposes. Billing Codes Specimen Charges Stain Charges 13336 45724 1 1 11858 1 1 10:17 AM CDT DERMATOPATHOLOGY LABORATORY Embedded Images 10:17 AM CDT DERMATOPATHOLOGY LABORATORY Pathology/Cytology TISSUE SPECIMEN FROM SKIN / Unknown 12/24/2020 12/27/2020 9:05 AM CDT Miscellaneous samples (specimen) TISSUE SPECIMEN FROM SKIN / Unknown 12/24/2020 12/27/2020 9:05 AM CDT us Radha Ravi DO LAB - PATHOLOGY/CYTOLOGY ORDERABLES Final Result DERMATOPATHOLOGY LABORATORY [facility] - Department of Dermatology [facility] Medicine [address] [place] [address], [address] [phone] documented in this encounter Visit Diagnoses Not on filedocumented in this encounter Care Teams Statement Clerks Manager Relationship Specialty Start Date End Date Marko Muñiz MD [address] [place] [address] PCP - General 12/27/20 documented as of this encounter
--- OUTSIDE RECORDS SUMMARY | 2024-10-31 10:48 | XMS_ITS | Encounter Summary ---
Author Organization [facility] Address [address] [place] [address] Care Team Providers Care Family And Marriage Counsellor Name Role Phone Marko Muñiz MD Primary Care Provider + Encounter Details Date Type Department Care Team (Late st Contact Info) Description 12/14/2022 Lab Requisition [facility] - DermPath Lab [address] [facility], [place] [phone] Radha Ravi DO [address] [facility] 3 [place] [address] Social History Tobacco Use Types Packs/Day Years [...] AM CDT) Case Report Dermatopathology Report Case: [id number] Authorizing Provider: Radha Ravi DO Collected: 12/14/2022 10:46 AM Ordering Location: [facility] DermPath Lab Received: 12/15/2022 01:12 PM Pathologist: Farzaneh Hickey MD Specimen: Skin, left scalp 1:57 PM CDT DERMATOPATHOLOGY LABORATORY Final Diagnosis Specimen A. SKIN, left scalp: SQUAMOUS CELL CARCINOMA, KERATOACANTHOMA TYPE; SUPERFICIAL PORTIONS OF (C44.42) (see microscopic description) 1:57 PM CDT DERMATOPATHOLOGY LABORATORY Clinical History [...] characteristic determined by the Dermatopathology Laboratory at [facility], directed by Dr. Batool Mckoy. These tests need not be, and therefore are not, approved by the [place] Food and Drug Administration. The tests are used for clinical purposes. Billing Codes Specimen Charges Stain Charges 95102 1 1:57 PM CDT DERMATOPATHOLOGY LABORATORY Embedded Images 1:57 PM CDT DERMATOPATHOLOGY LABORATORY Pathology/Cytolo gy TISSUE SPECIMEN FROM SKIN / Unknown 12/14/2022 10:46 AM CDT 12/15/2022 1:12 PM CDT us Radha Ravi DO LAB - PATHOLOGY/CYTOLOGY ORDERABLES Final Result DERMATOPATHOLOGY LABORATORY [facility] - Department of Dermatology [address], [address]rd [place] [address], [facility] [phone] documented in this encounter Visit Diagnoses Not on filedocumented in this encounter Care Teams Family And Marriage Counsellor Relationship Specialty Start Date End Date Marko Muñiz MD [address] [address] PCP - General 12/27/20 documented as of this encounter
--- OUTSIDE RECORDS SUMMARY | 2024-10-31 10:48 | XMS_ITS | Clinical Summary ---
Author Organization [facility] Address [address] [facility] [place] [address] Care Team Providers Care Surfboard Designer Name Role Phone Marko Muñiz MD Primary Care Provider + Source Comments [facility],non-owned Affiliates and Associated Physician Practices is amultiple site organization consisting of ambulatory clinics and hospital sitesin [place], [place], [place] and [place]. This disclosure is being madepursuant to the Care Everywhere program and may not contain all information available regarding this patient. Last updated 18.[facility] Social History Tobacco Use Types Packs/Day Years [...] VACCINE ( - 2023-2 5 season) 2024 DEPRESSION SCREENING 07/09/2024 INFLUENZA VACCINE (Season Ended) 2025 HEPATITIS B VACCINE Aged Out No longe r eligible based on patient's age to complete this topic HIB VACCINE Aged Out No longer eligi ble based on patient's age to complete this topic HPV VACCINE Aged Out No longer eligi ble based on patient's age to complete this topic MENINGOCOCCAL (Group B) VACC INE SHARED DECISION-MAKING Aged Out No longer eligibl e based on patient's age to complete this topic MENINGOCOCCAL GROUPS A/C/Y/W VACCINE Aged Out No longer eligible b ased on patient's age to complete this topic Insurance SELF PAY NO INSURANCE Member Subscriber Plan / Payer (Ef fective for All Dates) Name:Kelechi Quiñones Member ID:Not on file Relation to Subscriber:Not on file Name:KELECHI QUIÑONES Subscriber ID:Not on file (Home) Address: [address] [address] Payer ID:Not on file Group ID:Not on file Type:Self Pay Address: [place], [place] [employer] MED[employer] ADV PPO Care Teams Surfboard Designer Relationship Specialty Start Date End Date Marko Muñiz MD [address] [place] [address] [address] [place] [address] PCP - General 12/27/20
[2024-10-31 10:59] LABS: Prothrombin Time 14.1 Seconds (11.1-14.7)
[2024-10-31 11:00] LABS: Partial Thromboplastin Time 28.7 Seconds (22.3-36.8)
== END 2024-10-31 10:22 | disposition home or self-care (01) ==
LOC: ANHSURGERY 10:26
PROVIDERS: Anesthesiology; PCP Family Medicine Adolescent Medicine; Visit Provider Urology
DX: N18.31 Chronic kidney disease, stage 3a (principal); E11.22 Type 2 diabetes mellitus with diabetic chronic kidney disease
CPT/HCPCS: 36415; 85610; 85730

== ENCOUNTER 2024-11-13 01:21 | Day surgery (SDC) | payer OTHER, SELFPAY ==
[2024-10-27 14:48] VITALS: BMI 27.5
--- NOTE | 2024-10-27 14:59 | PC.NURSE ---
Report to the Outpatient Waiting Room, entrance under the green pavilion located off [facility], at time __1130am on date __11/13/24 . Planned Procedure Time: _1:30pm .? Time changes happen often and if your time is changed the preop area will call you the afternoon before. - You and your visitor will be asked to self-screen and do not enter if you have any COVID symptoms. Please call surgeon if you need to reschedule. - A mask is optional within the hospital at this time. Patients may have clear liquids (water, carbonated beverages, clear teas, apple juice) until 3 hours prior to surgery with a maximum of 20 ounces. - No food from midnight until time of surgery and no smoking, or chewing tobacco (or any form of nicotine). No chewing gum, candy or mints. (1030am) Take only the following medications with a SIP of water on the morning of surgery: Coreg DO NOT STOP ANY OF YOUR OTHER PRESCRIPTION MEDICATIONS PRIOR TO SURGERY EXCEPT THE FOLLOWING Hold all vitamins, supplements, aspirin, and NSAIDS for [address] Randle. Medications to discontinue per physician Aspirin and rest of supplements Date to take last dose____11/04/24 Please no make-up, nail australian, hairspray, perfume, deodorant, or body powder the day of surgery.? No jewelry (including any body piercings) or valuables the day of surgery, leave them at home.? Please take a shower or bath the night before, or the morning of, surgery with an antibacterial soap.? Wear comfortable, loose fitting clothing.? - Jewelry must be removed prior to entering the operating room.? Rings and piercings that are not removed may be cut off. - The hospital will not accept responsibility for valuables.? - Please leave all valuables, including medications, at home the day of surgery. If you are going home after surgery, a licensed cdl truck driver must drive you home.? - NO public transportation without another adult if you receive anesthesia. - We recommend that an adult stay with you for 24 hours following discharge. - We also recommend that you do not drive, make important decision, drink alcoholic beverages, or take any drugs that were not prescribed by your health care provider for at least 24 hours after your discharge time. Follow any additional instructions given to you from your surgeon. Telephone instructions given to ___Patient and asked if any additional questions and then verbalized understanding. Patient advised to call surgeon office or pre surgery nurse liaison [phone] if any additional questions.
[2024-11-13] VITALS (7 sets, daily range): BP systolic 91–112; BP diastolic 59–78; PULSE 54–60; RESP 10–16; TEMP 36.2–36.4; O2SAT 99–100
--- NOTE | ~2024-11-13 | XR_ITS ---
INTRAOPERATIVE FLUOROSCOPY: CLINICAL HISTORY: 79 years old Male; BILATERAL RETRO PROCEDURE COMMENTS: Limited intraoperative fluoroscopy of the upper abdomen was performed. CUMULATIVE DOSE: 18 mGy FLUOROSCOPY TIME: 49 seconds FINDINGS/IMPRESSION: Please refer to operative note for further details. Reviewed, dictated and finalized at location A.
--- OUTSIDE RECORDS SUMMARY | 2024-11-13 01:23 | XMS_ITS | Continuity of Care Document ---
Author Organization [facility] Address [address] [place] [address] Phone Care Team Providers Care Dispatcher Chief Coal Slurry Name Role Phone JoseAlvino lynn Unavailable Unavailable Procedures Procedure Date Eye Exam, New Patient Refraction Advance Directives Directive Yes / No Effective Date File Name No Information Encounters Encounter Description Practice Location Reason(s) For Visit Diagnoses Date Provider Providers Copied on Encounter [facility], [address], [place], [place], [id number], tel:[phone] [facility] No Information [address]. [address] [facility] [address], [place], [address], [place]. tel:[phone] Family History Family Member Type Diagnosis Age At Onset No Information Payers Payer name Insurance type Covered constitution party ID Authoriza tidavid(s) [facility] CI [id number] Social History Type Description Quantity Date Captured [...]
--- OUTSIDE RECORDS SUMMARY | 2024-11-13 01:23 | XMS_ITS | Encounter Summary ---
Author Organization [facility] Address [address] [facility] [place] [address] Care Team Providers Care Field Interviewer Name Role Phone Marko Muñiz MD Primary Care Provider + Encounter Details Date Type Department Care Team (Late st Contact Info) Description 05/12/2024 Lab Requisition [facility] - Derm[facility] Lab [address] [facility] [place] [phone] Radha Ravi DO [address] [facility] 3 [place] [address] Social History Tobacco Use Types Packs/Day Years [...] Comments DERMATOPATHOLOGY Routine 05/12/2024 12:2 5 PM NIB ASSEMBLER documented in this encounter Results * DERMATOPATHOLOGY (05/12/2024 12:25 PM NIB ASSEMBLER) Case Report Dermatopathology Report Case: [id number] Authorizing Provider: Radha Ravi DO Collected: 05/12/2024 12:25 PM Ordering Location: [facility] - Received: 05/13/2024 07:41 AM DermPath Lab Pathologist: Linda Celis MD Specimen: Skin, left neck 1:50 PM NIB ASSEMBLER DERMATOPATHOLOGY LABORATORY Final Diagnosis Specimen A. SKIN, left neck: BASAL CELL CARCINOMA (C44.41) PRESENT AT LATERAL MARGIN DERMAL SCAR (L90.5) 4 1:[address] [facility] DERMATOPATHOLOGY LABORATORY Clinical History BCC vs proven 4 1:[address] [facility] DERMATOPATHOLOGY LABORATORY Gross Description Specimen A: Received is one formalin filled container labeled with the patient's name and designated left neck. The specimen consists of a non-oriented ellipse of skin measuring [id number] mm. The epidermal surface is unremarkable. The margin is inked green. The 12 o'clock and 6 o'clock tips are submitted in cassette 1. The remainder of the ellipse is serially sectioned and submitted in cassette 2-3. Jar 0. 1:[address] [facility] DERMATOPATHOLOGY LABORATORY Microscopic Description Specimen A. [...] perpendicular to the skin surface. 1:[address] [facility] DERMATOPATHOLOGY LABORATORY Disclaimer An external and internal positive and negative controls are appropriate for the histochemical, immunohistochemical and immunofluorescence stain(s) in this case (if any), except where stated explicitly. The performance characteristics of the stain(s) cited in this report were developed and its performance characteristic determined by the Dermatopathology Laboratory at [facility], directed by Dr. Batool Mckoy. These tests need not be, and therefore are not, approved by the [place] Food and Drug Administration. The tests are used for clinical purposes. Billing Codes Specimen Charges Stain Charges 53520 1 1:[address] [facility] DERMATOPATHOLOGY LABORATORY Embedded Images 1:[address] [facility] DERMATOPATHOLOGY LABORATORY Pathology/Cytolo gy TISSUE SPECIMEN FROM SKIN / Unknown 05/12/2024 12:25 PM NIB ASSEMBLER 05/13/2024 7:41 AM NIB ASSEMBLER us Radha Ravi DO LAB - PATHOLOGY/CYTOLOGY ORDERABLES Final Result DERMATOPATHOLOGY LABORATORY [facility] - Department of Dermatology [facility] [address] [place] [address], [address] [phone] documented in this encounter Visit Diagnoses Not on filedocumented in this encounter Care Teams Field Interviewer Relationship Specialty Start Date End Date Marko Muñiz MD [address] [address] PCP - General 12/27/20 documented as of this encounter
--- OUTSIDE RECORDS SUMMARY | 2024-11-13 01:23 | XMS_ITS | Clinical Summary ---
Author Organization [facility] Address [address] [facility] [place] [address] Care Team Providers Care Central Supply Worker Name Role Phone Marko Muñiz MD Primary Care Provider + Source Comments [facility],non-owned Affiliates and Associated Physician Practices is amultiple site organization consisting of ambulatory clinics and hospital sitesin [place], [place], [place] and [place]. This disclosure is being madepursuant to the Care Everywhere program and may not contain all information available regarding this patient. Last updated 18.[facility] Social History Tobacco Use Types Packs/Day Years [...] file (Home) Address: [address] [address] Payer ID:Not on file Group ID:Not on file Type:Self Pay Address: [place], [place] [employer] ADV PPO Care Teams Central Supply Worker Relationship Specialty Start Date End Date Marko Muñiz MD [address] [place] [address] [address] [place] [address] PCP - General 12/27/20
--- OUTSIDE RECORDS SUMMARY | 2024-11-13 01:23 | XMS_ITS | Encounter Summary ---
Author Organization [facility] Address [address] [facility] [place] [address] Care Team Providers Care Saw Boss Name Role Phone Marko Muñiz MD Primary Care Provider + Encounter Details Date Type Department Care Team (Late st Contact Info) Description 03/22/2023 Lab Requisition [facility] - D[facility] Lab [address] [facility], [place] [phone] Radha Ravi DO [address] [facility] 3 [place] [address] Social History Tobacco Use Types Packs/Day Years [...] AM CDT) Case Report Dermatopathology Report Case: [id number] Authorizing Provider: Radha Ravi DO Collected: 03/22/2023 09:54 AM Ordering Location: [facility] DermPath Lab Received: 03/23/2023 08:07 AM Pathologist: [...] characteristic determined by the Dermatopathology Laboratory at [facility], directed by Dr. Batool Mckoy. These tests need not be, and therefore are not, approved by the [place] Food and Drug Administration. The tests are used for clinical purposes. Billing Codes Specimen Charges Stain Charges 49045 1 3 1:46 PM CDT DERMATOPATHOLOGY LABORATORY Embedded Images 3 1:46 PM CDT DERMATOPATHOLOGY LABORATORY Pathology/Cytolo gy TISSUE SPECIMEN FROM SKIN / Unknown 03/22/2023 9:54 AM CDT 03/23/2023 8:07 AM CDT us Radha Ravi DO LAB - PATHOLOGY/CYTOLOGY ORDERABLES Final Result DERMATOPATHOLOGY LABORATORY [facility] - Department of Dermatology [address] [place] [address], [facility] [phone] documented in this encounter Visit Diagnoses Not on filedocumented in this encounter Care Teams Saw Boss Relationship Specialty Start Date End Date Marko Muñiz MD [address] [address] PCP - General 12/27/20 documented as of this encounter
--- OUTSIDE RECORDS SUMMARY | 2024-11-13 01:23 | XMS_ITS | Encounter Summary ---
Author Organization [facility] Address [address] [facility] [place] [address] Care Team Providers Care Senior Information Developer Name Role Phone Marko Muñiz MD Primary Care Provider + Encounter Details Date Type Department Care Team (Late st Contact Info) Description 10/17/2023 Lab Requisition [facility] Derm[facility] Lab [address] [facility] [place] [phone] Radha Ravi DO [address] [facility] 3 [place] [address] Social History Tobacco Use Types Packs/Day Years [...] AM CDT) Case Report Dermatopathology Report Case: [id number] Authorizing Provider: Radha Ravi DO Collected: 10/17/2023 [...] (see microscopic description and comment) 12:45 PM [facility] DERMATOPATHOLOGY LABORATORY Clinical History A-B: R/O NMSC [...] measuring 6x6x1 mm. Jar 0. 12:45 PM [facility] DERMATOPATHOLOGY LABORATORY Microscopic Description Specimen A. SKIN, [...] carcinoma cannot be ruled out. 12:45 PM [facility] DERMATOPATHOLOGY LABORATORY Disclaimer An external and internal positive and negative controls are appropriate for the histochemical, immunohistochemical and immunofluorescence stain(s) in this case (if any), except where stated explicitly. The performance characteristics of the stain(s) cited in this report were developed and its performance characteristic determined by the Dermatopathology Laboratory at [facility], directed by Dr. Batool Mckoy. These tests need not be, and therefore are not, approved by the [place] Food and Drug Administration. The tests are used for clinical purposes. Billing Codes Specimen Charges Stain Charges 13294 92119 1 1 4 12:45 PM T DERMATOPATHOLOGY LABORATORY Embedded Images 12:45 PM CDT DERMATOPATHOLOGY LABORATORY Pathology/Cytology TISSUE SPECIMEN FROM SKIN / Unknown 10/17/2023 9:57 AM CDT 10/18/2023 7:54 AM CDT Miscellaneous samples (specimen) TISSUE SPECIMEN FROM SKIN / Unknown 10/17/2023 9:57 AM CDT 10/18/2023 7:54 AM CDT us Radha Ravi DO LAB - PATHOLOGY/CYTOLOGY ORDERABLES Final Result DERMATOPATHOLOGY LABORATORY [facility] - Department of Dermatology [facility] [address] [place] [address], [address] [phone] documented in this encounter Visit Diagnoses Not on filedocumented in this encounter Care Teams Senior Information Developer Relationship Specialty Start Date End Date Marko Muñiz MD [address] [place] [address] PCP - General 12/27/20 documented as of this encounter
--- OUTSIDE RECORDS SUMMARY | 2024-11-13 01:23 | XMS_ITS | Encounter Summary ---
Author Organization [facility] Address [address] [place] [address] Care Team Providers Care Yardage Tufting Machine Operator Name Role Phone Marko Muñiz MD Primary Care Provider + Encounter Details Date Type Department Care Team (Late st Contact Info) Description 04/24/2024 Lab Requisition [facility] DermPath Lab [address] [facility] [place] [address] Radha Ravi DO [address] [facility] 3 [place] [address] Social History Tobacco Use Types Packs/Day Years [...] AM CDT) Case Report Dermatopathology Report Case: [id number] Authorizing Provider: Radha Ravi DO Collected: 04/24/2024 [...] purposes. Billing Codes Specimen Charges Stain Charges 28839 25579 1 1 3:40 PM CDT DERMATOPATHOLOGY LABORATORY Embedded Images 3:40 PM CDT DERMATOPATHOLOGY LABORATORY Pathology/Cytology TISSUE SPECIMEN FROM SKIN / Unknown 04/24/2024 10:17 AM CDT 04/25/2024 12:27 PM CDT Miscellaneous samples (specimen) TISSUE SPECIMEN FROM SKIN / Unknown 04/24/2024 10:17 AM CDT 04/25/2024 12:27 PM CDT us Radha Ravi DO LAB - PATHOLOGY/CYTOLOGY ORDERABLES Final Result DERMATOPATHOLOGY LABORATORY [facility] - Department of Dermatology [facility] Medicine [address] [place] [address], [address] Floor [address] [phone] documented in this encounter Visit Diagnoses Not on filedocumented in this encounter Care Teams Yardage Tufting Machine Operator Relationship Specialty Start Date End Date Marko Muñiz MD [address] [place] [address] PCP - General 12/27/20 documented as of this encounter
--- OUTSIDE RECORDS SUMMARY | 2024-11-13 01:23 | XMS_ITS | Clinical Summary ---
Author Organization [facility] Address [address] [place] [address] Care Team Providers Care Door Glass Installer Name Role Phone Unavailable Primary Care Provider [...]
--- OUTSIDE RECORDS SUMMARY | 2024-11-13 01:23 | XMS_ITS | Encounter Summary ---
Author Organization [facility] Address [address] [facility] [place] [address] Care Team Providers Care Manager Engine Name Role Phone Marko Muñiz MD Primary Care Provider + Encounter Details Date Type Department Care Team (Late st Contact Info) Description 12/14/2022 Lab Requisition [facility] Derm[facility] Lab [address] [facility], [place] [phone] Radha Ravi DO [address] [facility] 3 [place] [address] Social History Tobacco Use Types Packs/Day Years [...] AM CDT) Case Report Dermatopathology Report Case: [id number] Authorizing Provider: Radha Ravi DO Collected: 12/14/2022 10:46 AM Ordering Location: [facility] DermPath Lab Received: 12/15/2022 01:12 PM Pathologist: [...] purposes. Billing Codes Specimen Charges Stain Charges 85503 1 1:57 PM CDT DERMATOPATHOLOGY LABORATORY Embedded Images 1:57 PM CDT DERMATOPATHOLOGY LABORATORY Pathology/Cytolo gy TISSUE SPECIMEN FROM SKIN / Unknown 12/14/2022 10:46 AM CDT 12/15/2022 1:12 PM CDT us Radha Ravi DO LAB - PATHOLOGY/CYTOLOGY ORDERABLES Final Result DERMATOPATHOLOGY LABORATORY [facility] - Department of Dermatology [address], [address]rd [place] [address], [facility] [phone] documented in this encounter Visit Diagnoses Not on filedocumented in this encounter Care Teams Manager Engine Relationship Specialty Start Date End Date Marko Muñiz MD [address] [address] PCP - General 12/27/20 documented as of this encounter
--- OUTSIDE RECORDS SUMMARY | 2024-11-13 01:23 | XMS_ITS | Encounter Summary ---
Author Organization [facility] Address [address] [facility] [place] [address] Care Team Providers Care Wirer Maintenance Name Role Phone Marko Muñiz MD Primary Care Provider + Encounter Details Date Type Department Care Team (Late st Contact Info) Description 12/27/2020 Lab Requisition [facility] DermPath Lab [address] [facility], [place] [phone] Radha Ravi DO [address] [facility] 3 [place] [address] Social History Tobacco Use Types Packs/Day Years [...] AM CDT) Case Report Dermatopathology Report Case: [id number] Authorizing Provider: Radha Ravi DO Collected: 12/24/2020 12:00 AM Ordering Location: [facility] DermPath Lab Received: 12/27/2020 09:05 AM Pathologist: Farzaneh Hickey MD Specimens: A) - Skin, forehead B) - Skin, right forearm 10:17 AM CDT DERMATOPATHOLOGY LABORATORY Final Diagnosis Specimen A. SKIN, forehead: BASAL CELL CARCINOMA, SUPERFICIAL MULTIFOCAL (C44.319) Specimen B. SKIN, right forearm: ACTINIC KERATOSIS, LICHENOID (L57.0) SOLAR LENTIGO (L81.4) (see microscopic description) 10:17 AM [facility] DERMATOPATHOLOGY LABORATORY Clinical History A: R/O BCC. B: R/O melanoma. 10:17 AM [facility] DERMATOPATHOLOGY LABORATORY Gross Description Specimen A: Received is one formalin filled container labeled with the patient's name and designated forehead. The specimen consists of a shave measuring 9n3e7he. Jar 0. Specimen B: Received is one formalin filled container labeled with the patient's name and designated right forearm. The specimen consists of a shave measuring 4o3w1bw. Jar 0. 10:17 AM [facility] DERMATOPATHOLOGY LABORATORY Microscopic Description Specimen A. SKIN, [...] sections were obtained and reviewed. 10:17 AM [facility] DERMATOPATHOLOGY LABORATORY Disclaimer An external and internal positive and negative controls are appropriate for the histochemical, immunohistochemical and immunofluorescence stain(s) in this case (if any), except where stated explicitly. The performance characteristics of the stain(s) cited in this report were developed and its performance characteristic determined by the Dermatopathology Laboratory at [facility], directed by Dr. Batool Mckoy. These tests need not be, and therefore are not, approved by the [place] Food and Drug Administration. The tests are used for clinical purposes. Billing Codes Specimen Charges Stain Charges 01147 17687 1 1 41472 1 1 10:17 AM CDT DERMATOPATHOLOGY LABORATORY Embedded Images 10:17 AM CDT DERMATOPATHOLOGY LABORATORY Pathology/Cytology TISSUE SPECIMEN FROM SKIN / Unknown 12/24/2020 12/27/2020 9:05 AM CDT Miscellaneous samples (specimen) TISSUE SPECIMEN FROM SKIN / Unknown 12/24/2020 12/27/2020 9:05 AM CDT us Radha Ravi DO LAB - PATHOLOGY/CYTOLOGY ORDERABLES Final Result DERMATOPATHOLOGY LABORATORY [facility] - Department of Dermatology [facility] Medicine [address] [place] [address], [address] Floor [address] [phone] documented in this encounter Visit Diagnoses Not on filedocumented in this encounter Care Teams Wirer Maintenance Relationship Specialty Start Date End Date Marko Muñiz MD [address] [place] [address] PCP - General 12/27/20 documented as of this encounter
--- NOTE | 2024-11-13 05:53 | WPDHPUPDATE1 ---
History and Physical Update Update Date/Time: 11/13/24 05:53 History and Physical has been reviewed, including an updated exam of the patient. There are NO changes in the patient's condition. Risks, benefits, and alternatives have been discussed and questions answered. Patient agrees to proceed with procedure.
[2024-11-13 12:02] LABS: Glucose Point of Care 131 mg/dl (65-105)
[2024-11-13] MEDS: LACTATED RINGERS 1,000 ML 30 ML IV CONT (12:02)
[2024-11-13] MEDS: ceFAZolin 2 GM/D5W 50 ML 2 GM/50 ML BAG IVPB (14:12)
[2024-11-13] MEDS: LIDOCAINE 2% GEL UROJET 10 ML PKG MUCOUS MEM (14:36)
--- NOTE | 2024-11-13 14:53 | W.PM.PROC2 ---
Procedure Note - Detailed Date of Procedure 11/13/24 Pre-op Diagnosis History of bladder CA Post-op Diagnosis Same Procedure Performed Cystoscopy, bilateral retrograde pyelography, bladder biopsy Surgeon Charan Randle MD Anesthesia General Description of Procedure Cystoscopy was undertaken with a 21 F rigid cystoscope after he was prepped and draped in routine fashion a dorsal lithotomy position in the general LMA anesthetic was administered in uneventful fashion. He had no urethral stricture and evidence of prior TUR P. He had minimal regrowth of prostate tissue. Bladder mucosa showed patchy hyperemia that was most pronounced in the left lateral wall. His ureteral orifices were laterally placed and somewhat unusual in appearance. Retrograde pyelography showed significant J hooking bilaterally without filling defects or obstruction. Using a cold cup forceps I obtained several biopsies from this area unusual hyperemia in the left lateral wall. This areas suggestive of carcinoma in Situ. The base of these biopsy sites were cauterized using a rollerball. Resectoscope was removed and the patient was taken recovery room in good condition. Drains No Packing No Pathology Yes Complications No immediate complications
[2024-11-13 15:12] LABS: Glucose Point of Care 143 mg/dl (65-105)
[2024-11-13] MEDS: oxyCODONE HCL (*CRX) 5 MG TAB IR PO (15:49)
== END 2024-11-13 16:45 | disposition home or self-care (01) ==
PROVIDERS: PCP Family Medicine Adolescent Medicine; Visit Provider Urology
PROC: (CPT 52352; 2024-11-13 13:30)
DX: Z08 Encounter for follow-up examination after completed treatment for malignant neoplasm (principal); N30.90 Cystitis, unspecified without hematuria; Z85.51 Personal history of malignant neoplasm of bladder
CPT/HCPCS: 52204; 74420; 82948; 88305; 88342; A9270; C1758; C1769; J0690; J2704; J3010; J7120

== ENCOUNTER 2025-05-21 09:59 | Outpatient (CLI) | payer OTHER, SELFPAY ==
--- NOTE | 2025-05-21 10:30 | ECG_ITS ---
Test Date: 2025-05-21 10:40:04 Measurements Intervals [place] Rate: 63 P: 69 OR: 170 QRS: 20 QRSD: 97 T: 39 QT: 374 QTc: 385 Interpretive Statements SINUS RHYTHM LOW QRS VOLTAGE IN PRECORDIAL LEADS [QRS DEFLECTION < 1.0 mV IN CHEST LEADS] POSSIBLE ANTERIOR MYOCARDIAL INFARCTION [30 ms Q WAVE IN V3/V4, OR R < 0.2 mV IN V4], OF INDETERMINATE AGE WARNING: DATA QUALITY MAY AFFECT INTERPRETATION Compared to ECG 03/25/2024 08:16:46 Low QRS voltage now present Myocardial infarct finding now present Electronically Signed On 05-21-2025 12:32:45 AWNING SPREADER by Home Dia M.D.
--- OUTSIDE RECORDS SUMMARY | 2025-05-21 10:56 | XMS_ITS | Encounter Summary ---
Author Organization [facility] Address [address] [place] [address] Care Team Providers Care Telephone Station Installer Name Role Phone Marko Muñiz MD Primary Care Provider + Encounter Details Date Type Department Care Team (Late st Contact Info) Description 04/24/2024 Lab Requisition [facility] - DermPath Lab [address] [facility], [facility] [place] [id number] Radha Ravi DO [address] [facility] [address] [place] [address] Social History Tobacco Use Types Packs/Day Years [...] AM CDT) Case Report Dermatopathology Report Case: [id number] Authorizing Provider: Radha Ravi DO Collected: 04/24/2024 [...] DISEASE) (D04.4) (see microscopic description) 3:40 PM CDT DERMATOPATHOLOGY LABORATORY at 1540 CDT Clinical History R/o NMSC 3:40 PM CDT [...] purposes. Billing Codes Specimen Charges Stain Charges 98497 92314 1 1 3:40 PM CDT DERMATOPATHOLOGY LABORATORY Embedded Images 3:40 PM CDT DERMATOPATHOLOGY LABORATORY Pathology/Cytology TISSUE SPECIMEN FROM SKIN / Unknown 04/24/2024 10:17 AM CDT 04/25/2024 12:27 PM CDT Miscellaneous samples (specimen) TISSUE SPECIMEN FROM SKIN / Unknown 04/24/2024 10:17 AM CDT 04/25/2024 12:27 PM CDT us Radha Ravi DO LAB - PATHOLOGY/CYTOLOGY ORDERABLES Final Result DERMATOPATHOLOGY LABORATORY [facility] - Department of Dermatology [facility] Medicine [address] [place] [address], [address] [phone] documented in this encounter Visit Diagnoses Not on filedocumented in this encounter Care Teams Telephone Station Installer Relationship Specialty Start Date End Date Marko Muñiz MD [address] [place] [phone] PCP - General 12/27/20 documented as of this encounter
--- OUTSIDE RECORDS SUMMARY | 2025-05-21 10:56 | XMS_ITS | Encounter Summary ---
Author Organization [facility] Address [address] [facility] [place] [address] Care Team Providers Care Box Printer Name Role Phone Marko Muñiz MD Primary Care Provider + Encounter Details Date Type Department Care Team (Late st Contact Info) Description 05/12/2024 Lab Requisition [facility] - DermPath Lab [address] [facility], [facility] [place] [phone] Radha Ravi DO [address] [facility] [address] [place] [address] Social History Tobacco Use Types Packs/Day Years [...] Comments DERMATOPATHOLOGY Routine 05/12/2024 12:2 5 PM EMBROIDERY DESIGNER documented in this encounter Results * DERMATOPATHOLOGY (05/12/2024 12:25 PM EMBROIDERY DESIGNER) Case Report Dermatopathology Report Case: [id number] Authorizing Provider: Radha Ravi DO Collected: 05/12/2024 12:25 PM Ordering Location: [facility] - Received: 05/13/2024 07:41 AM DermPath Lab Pathologist: Linda Celis MD Specimen: Skin, left neck 1:50 PM EMBROIDERY DESIGNER DERMATOPATHOLOGY LABORATORY Final Diagnosis Specimen A. SKIN, left neck: BASAL CELL CARCINOMA (C44.41) PRESENT AT LATERAL MARGIN DERMAL SCAR (L90.5) 4 1:50 PM [facility] [[email or web address]] DERMATOPATHOLOGY LABORATORY at 1350 EMBROIDERY DESIGNER Clinical History BCC vs proven 4 1:50 PM [facility] [[email or web address]] DERMATOPATHOLOGY LABORATORY Gross Description Specimen A: Received is one formalin filled container labeled with the patient's name and designated left neck. The specimen consists of a non-oriented ellipse of skin measuring [id number] mm. The epidermal surface is unremarkable. The margin is inked green. The 12 o'clock and 6 o'clock tips are submitted in cassette 1. The remainder of the ellipse is serially sectioned and submitted in cassette 2-3. Jar 0. 4 1:50 PM [facility] [[email or web address]] DERMATOPATHOLOGY LABORATORY Microscopic Description Specimen A. SKIN, [...] are oriented perpendicular to the skin surface. 4 1:50 PM [facility] [[email or web address]] DERMATOPATHOLOGY LABORATORY Disclaimer An external and internal positive and negative controls are appropriate for the histochemical, immunohistochemical and immunofluorescence stain(s) in this case (if any), except where stated explicitly. The performance characteristics of the stain(s) cited in this report were developed and its performance characteristic determined by the Dermatopathology Laboratory at [facility], directed by Dr. Batool Mckoy. These tests need not be, and therefore are not, approved by the [place] Food and Drug Administration. The tests are used for clinical purposes. Billing Codes Specimen Charges Stain Charges 75948 1 4 1:50 PM [facility] [[email or web address]] DERMATOPATHOLOGY LABORATORY Embedded Images 4 1:50 PM [facility] [[email or web address]] DERMATOPATHOLOGY LABORATORY Pathology/Cytolo gy TISSUE SPECIMEN FROM SKIN / Unknown 05/12/2024 12:25 PM EMBROIDERY DESIGNER 05/13/2024 7:41 AM EMBROIDERY DESIGNER us Radha Ravi DO LAB - PATHOLOGY/CYTOLOGY ORDERABLES Final Result DERMATOPATHOLOGY LABORATORY [facility] - Department of Dermatology [facility] Specialized Medicine [facility] [facility], 3rd Floor [address] [phone] documented in this encounter Visit Diagnoses Not on filedocumented in this encounter Care Teams Box Printer Relationship Specialty Start Date End Date Marko Muñiz MD [address] [address] PCP - General 12/27/20 documented as of this encounter
--- OUTSIDE RECORDS SUMMARY | 2025-05-21 10:56 | XMS_ITS | Encounter Summary ---
Author Organization [facility] Address [address] [facility] [place] [address] Care Team Providers Care Sheet Taker Name Role Phone Marko Muñiz MD Primary Care Provider + Encounter Details Date Type Department Care Team (Late st Contact Info) Description 12/27/2020 Lab Requisition [facility] DermPath Lab [address] [facility], [place] [phone] Radha Ravi DO [address] [facility] [address] [place] [address] Social History Tobacco Use Types Packs/Day Years [...] AM CDT) Case Report Dermatopathology Report Case: [id number] Authorizing Provider: Radha Ravi DO Collected: 12/24/2020 12:00 AM Ordering Location: [facility] DermPath Lab Received: 12/27/2020 09:05 AM Pathologist: Farzaneh Hickey MD Specimens: A) - Skin, forehead B) - Skin, right forearm 10:17 AM CDT DERMATOPATHOLOGY LABORATORY Final Diagnosis Specimen A. SKIN, forehead: BASAL CELL CARCINOMA, SUPERFICIAL MULTIFOCAL (C44.319) Specimen B. SKIN, right forearm: ACTINIC KERATOSIS, LICHENOID (L57.0) SOLAR LENTIGO (L81.4) (see microscopic description) 10:17 AM [facility] DERMATOPATHOLOGY LABORATORY at 1017 CDT Clinical History A: R/O BCC. B: R/O melanoma. 10:17 AM [facility] DERMATOPATHOLOGY LABORATORY Gross Description Specimen A: Received is one formalin filled container labeled with the patient's name and designated forehead. The specimen consists of a shave measuring 6d6w1jm. Jar 0. Specimen B: Received is one formalin filled container labeled with the patient's name and designated right forearm. The specimen consists of a shave measuring 2r4i5ms. Jar 0. 10:17 AM [facility] DERMATOPATHOLOGY LABORATORY Microscopic [...] sections were obtained and reviewed. 10:17 AM T DERMATOPATHOLOGY LABORATORY Disclaimer An external and internal positive and negative controls are appropriate for the histochemical, immunohistochemical and immunofluorescence stain(s) in this case (if any), except where stated explicitly. The performance characteristics of the stain(s) cited in this report were developed and its performance characteristic determined by the Dermatopathology Laboratory at [facility], directed by Dr. Batool Mckoy. These tests need not be, and therefore are not, approved by the [place] Food and Drug Administration. The tests are used for clinical purposes. Billing Codes Specimen Charges Stain Charges 24058 46878 1 1 57103 1 1 10:17 AM CDT DERMATOPATHOLOGY LABORATORY Embedded Images 10:17 AM CDT DERMATOPATHOLOGY LABORATORY Pathology/Cytology TISSUE SPECIMEN FROM SKIN / Unknown 12/24/2020 12/27/2020 9:05 AM CDT Miscellaneous samples (specimen) TISSUE SPECIMEN FROM SKIN / Unknown 12/24/2020 12/27/2020 9:05 AM CDT us Radha Ravi DO LAB - PATHOLOGY/CYTOLOGY ORDERABLES Final Result DERMATOPATHOLOGY LABORATORY [facility] - Department of Dermatology [facility] Medicine [address] [place] [address], [address] [phone] documented in this encounter Visit Diagnoses Not on filedocumented in this encounter Care Teams Sheet Taker Relationship Specialty Start Date End Date Marko Muñiz MD [address] [place] [id number] PCP - General 12/27/20 documented as of this encounter
--- OUTSIDE RECORDS SUMMARY | 2025-05-21 10:56 | XMS_ITS | Clinical Summary ---
Author Organization [facility] [address] Address [address] [place] [address] Care Team Providers Care Labor Economics Teacher Name Role Phone Marko Muñiz MD Primary [...] enteric coated tabletIndication s:Coronary artery disease involving [place] coronary artery of [place] heart, angina presence unspecified Take 1 tablet (81 mg total) by mouth daily 30 tablet 11 0 Active finasteride (PROSCAR) 5 mg tablet Take 1 tablet (5 mg total) by mouth daily 2 Active tamsulosin (FLOMAX) 0.4 mg extended release capsule Take 1 capsule (0.4 mg total) by mouth daily Active multivitamin-min erals-lutein (Multivitamin 50 Plus) tablet Take by mouth daily Active spironolactone (ALDACTONE) 25 mg tablet TAKE 1/2 TABLET BY MOUTH DAILY 45 tablet 3 5 Active Farxiga 10 mg tablet Take 1 tablet (10 mg total) by mouth daily 5 Active icosapent ethyL (VASCEPA) 1 gram capsule TAKE 2 CAPSULES BY MOUTH TWICE A DAY 360 capsule 3 5 Active carvediloL (COREG) 12.5 mg tabletIndication s:Chronic systolic heart failure (HCC) TAKE 1 TABLET BY MOUTH TWICE A DAY WITH FOOD 180 tablet 2 5 Active sacubitriL-valsa rtan (ENTRESTO) 49-51 mg tabletIndication s:Chronic systolic heart failure (HCC) TAKE 1 TABLET BY MOUTH TWICE A DAY 60 tablet 7 5 Active Active Problems Problem Noted Date Diagnosed Date Cardiovascular stress test abnormal 03/16/2025 Visit for wound check 02/03/2020 Visit for wound check 01/27/2020 Automatic implantable cardiac defibrillator in s itu 01/22/2020 Overview (01/22/2020): [email or web address] Single ICD. Dx; NICM. DOI 01/20/2020-[employer]. [email or web address] remote home monitoring. At risk for sudden cardiac 01/13/2020 Chronic prostatitis 01/13/2020 Hypertriglyceridemia 09/15/2019 Chronic systolic heart failure 08/25/2019 Shortness of breath 08/25/2019 Coronary artery disease of n ative artery of [place] heart with stable angina pectoris 08/04/2019 Hyperlipidemia associated with type 2 diabetes m ellitus 08/04/2019 Diabetes mellitus type II, non insulin dependent 08/04/2019 Left ventricular hypertrophy 08/04/2019 Cardiomyopathy 08/04/2019 Basal cell carcinoma (BCC) of skin of ear 2014 Basal cell carcinoma (BCC) of skin of nose 02/05 Encounters Date Type Department Care Team Description 04/07/2025 8:30 AM CDT Ancillary Procedure [facility] Cardiology [facility] [address] Automatic implantable cardiac defibrillator in situ; NICM (nonischemic cardiomyopathy) (HCC) 04/06/2025 10:07 AM CDT - 04/06/2025 11:37 AM CDT Surgery [facility] Cardiac Catheterization Lab [address] [place] [address] Jose Levin MD LEFT HEART CATHETERIZATION WITH CORONARY ANGIOGRAPHY AND WITH OR WITHOUT LEFT VENTRICULOGRAM [id number] 04/06/2025 7:56 AM CDT - 04/06/2025 1:26 PM CDT Hospital Encounter [facility] Cardiac Catheterization Lab [address] [place] [address] Jose Levin MD Coronary artery disease of [place] artery of [place] heart with stable angina pectoris; Cardiovascular stress test abnormal Discharge Disposition: Discharge to home or self care 04/02/2025 Results Follow-Up [facility] Cardiology at [address] [place] [address] Alba Alvarez MD CBC with auto differential, Comprehensive metabolic panel 03/16/2025 Telephone [facility] Cardiology [address] [place] [address] Alba Alvarez MD 03/16/2025 Results Follow-Up [facility] Cardiology [address] [facility] [address], [place] [id number] Alba Alvarez MD NM MPI SPECT (Rest and/or Stress) Multiple Studies 03/12/2025 10:30 AM CDT Ancillary Procedure [facility] Cardiology at [address] [place] [address] Coronary artery disease of [place] artery of [place] heart with stable angina pectoris 03/05/2025 10:45 AM CDT Office Visit [facility] Cardiology [address] [place] [address] Alba Alvarez MD Coronary artery disease of [place] artery of [place] heart with stable angina pectoris (Primary Dx); Chronic systolic heart failure (HCC); Hyperlipidemia associated with type 2 diabetes mellitus (HCC); Automatic implantable cardiac defibrillator in situ; Left ventricular hypertrophy from Last 3 Months Surgical History Surgery Date Site/Laterality Comments CARDIAC CATHETERIZATION SKIN CANCER DESTRUCTION LASER OF PROSTATE W/ GREEN LIGHT PVP CARDIAC CATHETERIZATION 04/06/2025 N/A Procedure: LEFT HEART CATHETERIZATION WITH CORONARY ANGIOGRAPHY AND WITH OR WITHOUT LEFT VENTRICULOGRAM [id number]; Surgeon: Jose Levin MD; Location: CARDIAC HANDKERCHIEF SAMPLE CLERK; Service: Cardiovascular; Laterality: N/A; CARDIAC CATHETERIZATION 04/06/2025 N/A Procedure: IVUS/OCT CORS OR GRAFTS, FIRST VESSEL (+) [id number]; Surgeon: Jose Levin MD; Location: CARDIAC HANDKERCHIEF SAMPLE CLERK; Service: Cardiovascular; Laterality: N/A; Medical History Medical History Date Comments Diabetes mellitus Enlarged prostate Type 2 diabetes mellitus Abnormal echocardiogram Abnormal EKG Skin cancer Hypertension Coronary artery disease CHF (congestive heart failure) (HCC) Bladder cancer (HCC) Family History Medical History Relation Name Comments [...] pur e alcohol) AUDIT-C Answer Date Recorded Q1: How often do you have a drink containing alcohol? Never 03/31/2025 Q2: How many drinks containi ng alcohol do you have on a typical day when you are drinking? Patient does not drink Q3: How often do you have si x or more drinks on one occasion? Never 03/31/2025 Personal Safety Answer Date Recorded Have you ever been in or are you currently in a harmful physical or emotional relationship or is someone making you feel afraid or unsafe? 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 Gender Identity Not on file Sexual Orientation Not on file Last Filed Vital Signs Vital Sign Reading Time Taken Comments Blood Pressure 94/55 04/06/2025 12:50 PM CDT Pulse 70 04/06/2025 1:00 PM CDT Temperature 36.6 C (97.9 F) 04/06/2025 8:13 AM CDT Respiratory Rate 18 04/06/2025 8:13 AM CDT Oxygen Saturation 97% 04/06/2025 1:00 PM CDT Inhaled Oxygen Concentration - - Weight 67.8 kg (149 lb 8 oz) 04/06/2025 8:13 AM CDT Height 165.1 cm (5' 5) 04/06/2025 8:13 AM CDT Body Mass Index 24.88 04/06/2025 8:13 AM CDT Plan of Treatment Health Maintenance Due Date Last Done Comments Albumin Creatinine Ratio, Urine 1945 Depression Screening 1945 Hemoglobin A1C 1945 Dilated Eye Exam 1945 Foot Exam 1945 DTaP/Tdap/Td Vaccine (1 - Tdap) 1955 Hepatitis B Screening 1962 Pneumococcal vaccine 65+ (1 of 2 - PCV) 1963 Zoster Vaccine (1 of 2) 1994 Well Visit 65+ 2009 Influenza Vaccine (#1) 2025 04/09/2013 Lipid Panel 03/05/2026 03/05/2025, 11/06, 02/15/2022, Additional history exists Fall Risk Assessment 04/06/2026 04/06/2025 eGFR 04/06/2026 04/06/2025, 03/10, 01/13/2020, Additional history exists Medical Devices Implanted Type Area Admissions Advisor Device Identifier Shelf Expiration Date Model / Serial / Lot Icd ICD Left: Chest [employer] [id number] Synergy 2.5mm 16mm 144cm Radiopaque 1 Access Port Inflation Lumen - [id number] Implanted:Qty: 1 on 08/14/2019 by Jose Levin MD at [facility] [employer] 11/17/2020 [id number] / / [employer] [id number] Device Closure Angio-Seal Vip Bondek-Plus Polyglyd L70 Cm Od6 Fr Odsec.035 In Vascular - [id number] Implanted:Qty: 1 on 08/14/2019 by Jose Levin MD at [facility] [employer] [id number] / / Procedures Procedure Name Priority Date/Time Associated Diagnosis Comments DEVICE CHECK - REMOTE Routine 04/09/2025 2:04 PM CDT Automatic implantable cardiac defibrillator in situ NICM (nonischemic cardiomyopathy) (HCC) POCT GLUCOSE DEVICE Routine 04/06/2025 10:51 AM CDT CORONARY OCT, 1ST VESSEL Routine 04/06/2025 10:37 AM CDT Coronary artery disease of [place] artery of [place] heart with stable angina pectoris Cardiovascular stress test abnormal LEFT HEART CATHETERIZATION WITH CORONARY ANGIOGRAPHY AND WITH AND WITHOUT LEFT VENTRICULOGRAM Routine 04/06/2025 10:37 AM CDT Coronary artery disease of [place] artery of [place] heart with stable angina pectoris Cardiovascular stress test abnormal MODERATE SEDATION 04/06/2025 9:4 2 AM CDT Coronary artery disease of [place] artery of [place] heart with stable angina pectoris Cardiovascular stress test abnormal EGFR Routine 04/06/2025 8:38 AM CDT COMPREHENSIVE METABOLIC PANEL Routine 04/06/2025 8:38 AM CDT POCT GLUCOSE DEVICE Routine 04/06/2025 8 :12 AM CDT COMPREHENSIVE METABOLIC PANEL Routine 04/01/2025 10:03 AM CDT Cardiovascular stress test abnormal Pre-procedure lab exam CBC WITH AUTO DIFFERENTIAL Routine 04/01/2025 10:03 AM CDT Cardiovascular stress test abnormal Pre-procedure lab exam NM MPI SPECT (REST AND/OR STRESS) MULTIPLE STUDIES Schedule Routine, Read Routine (OP Routine) 03/12/2025 12:18 PM CDT Coronary artery disease of [place] artery of [place] heart with stable angina pectoris POCT LIPID PANEL Routine 03/05/2025 10:59 AM CDT Coronary artery disease of [place] artery of [place] heart with stable angina pectoris Hyperlipidemia associated with type 2 diabetes mellitus (HCC) from Last 3 Months Results * DEVICE CHECK - REMOTE (04/09/2025 2:04 PM CDT) Anatomical Region Laterality Modality Other Narrative 04/28/2025 4:19 PM CDT [email or web address] Single ICD. Dx; NICM. DOI 01/20/2020-[facility]. [employer] remote home monitoring. Routine VDI ICD remote. Normal device function. Battery function-3.12V, 78% remaining battery life to ABRAHAM. Charge time-9.5 seconds. Appropriate lead measurements noted. Presenting rhythm: -VS. RADIOLOGY PHYSICIAN ASSISTANT-0%. No AT/AF episodes noted. No Ventricular arrhythmias noted. Medications; Entresto, Coreg 12.5 mg BID, ASA 81 mg. See scanned report. Office device f/u 10/21/2025. [employer] remote f/u 07/14/2025. Arabella Orr, RN us Alba Alvarez MD CV CARDIAC SERVICES PROCE [facility] Final Result * POCT glucose (04/06/2025 10:51 AM CDT) Glucose, POC 122 70 - 199 mg/dL Blood 04/06/2025 10:5 1 AM CDT 04/06/2025 10:51 AM CDT us Jose Levni MD LAB POCT ORDERABLES - DEVICE Fin al Result Performing Organization Address City/State/[facility] Co ar Phone Number [facility] [address] Department [place] [address] * LEFT HEART CATHETERIZATION WITH CORONARY ANGIOGRAPHY AND WITH AND WITHOUT LEFT VENTRICULOGRAM, CORONARY OCT, 1ST VESSEL (04/06/2025 10:37 AM CDT) Anatomical Region Laterality Modality X-Ray Angiograph y Addenda Addendum by Jose Levin MD on 04/06/2025 11:09 AM CDT CARDIAC CATHETERIZATION AND INTERVENTION REPORT DATE OF PROCEDURE: 04/06/25 INDICATION FOR PROCEDURE: CAD, abdominal MPI, history of PCI/stenting BRIEF CLINICAL HISTORY: Iqra Quiñones is a 79 y.o. male with CAD s/p PCI- PTCA/2.5 x 16 mm [employer] Synergy everolimus eluting stent placement in the mid LAD on 08/14/2019; history of CHF with reduced ejection fraction with improvement in LV systolic function over time (LVEF 50% from 03/05/2024 echo), history of [employer] single-chamber ICD placement on 01/20/2020; type 2 diabetes mellitus, CKD. Patient referred by Dr. Alvarez for cardiac catheterization in the setting of abnormal MPI. Patient's MPI from 03/12/2025 reportedly showed LVEF 65%; fixed defect mid anteroseptal, mid inferoseptal, apical septal and apex; reversible defect in mid inferolateral and apical lateral segments. Patient has CKD. He was prehydrated with normal saline prior to the procedure. Benefits and risks of the procedure were discussed with the patient in depth, and informed consent was taken prior to the procedure. Risks of the procedure include but are not limited to vascular complications like groin hematoma, retroperitoneal bleed, vessel perforation; periprocedural SD, cardiac arrhythmias, stroke, contrast induced nephropathy, and . After discussing all the benefits, risks and alternatives, patient was willing to proceed with the procedure. PROCEDURES PERFORMED: Ultrasound-guided right radial arterial access Left heart catheterization-selective left and right coronary angiogram, LV pressure measurement, hemodynamic assessment Percutaneous coronary intervention-intravascular ultrasound (IVUS) of left main coronary artery Moderate sedation-CPT code 75972 and beyond MODERATE SEDATION: Midazolam 1 mg , Fentanyl 25 mcg, start time 0951 stop time 1037, total direct [id number] monitoring of conscious sedation 46 minutes (CPT 40580) TRAINED OBSERVER: Dee Dee George RN was trained observer for moderate sedation. ACCESS SITE: Right radial artery PROCEDURE: After obtaining informed consent, patient was brought to the cath lab nurse and prepped and draped in the usual sterile manner. Time-out and immediate reassessment of the patient was performed. After local anesthesia with lidocaine, right radial artery access was taken with micropuncture needle under ultrasound guidance followed by insertion of a 6 Algerian sheath. Patient received 2.5 mg of verapamil, 100 mcg of nitroglycerin through the arterial sheath; and 5000 units of unfractionated heparin. Selective left and right coronary angiography was performed using 5 F JL3.5 and 5F JR4 catheters respectively. Orthogonal views were taken. JR4 catheter advanced in the LV cavity, LV pressure measurement was performed followed by assessment of gradient across the aortic valve on manual pullback. Estimated blood loss was minimal. All specimens removed. The angiographic and other findings, and details of intervention are given below. FINDINGS: LEFT MAIN CORONARY: The left main coronary artery is a medium caliber vessel with about 30-40% stenosis in the proximal-mid segment. LEFT ANTERIOR DESCENDING ARTERY: Lad is a medium caliber vessel in the proximal most segment, has diffuse about 50-60% stenosis in the proximal-mid segment after origin of the septal machine heddle cleaner. It becomes a bifurcating LAD with diagonal branch running almost parallel to the main LAD. Previously placed stent in the mid LAD distal to the diagonal branch has minor luminal loss. The LAD becomes tortuous in the distal segment and becomes diminutive vessel and does not reach LV apex. The diagonal branch is a medium caliber vessel, and becomes tortuous in the mid-distal segment. LEFT CIRCUMFLEX ARTERY: Proximal left circumflex artery is a medium to large caliber vessel, essentially continues as OM branch which is medium to large caliber vessel with minor luminal irregularities in the proximal segment. The main LCX is a diminutive vessel and continues in the AV groove. RIGHT CORONARY ARTERY: Large caliber, tortuous, dominant vessel, gives rise to large caliber PDA and PLV branches, no significant focal stenosis. LEFT VENTRICULOGRAM: LVEDP measured at 19 mmHg. Left ventriculogram was not performed. HEMODYNAMIC ASSESSMENT: Opening pressure 90/53 mmHg, closing pressure 111/57 mmHg. LVEDP 19 mmHg. No significant gradient across aortic valve on the full back of pigtail catheter. INTERVENTION REPORT: Patient's coronary angiogram showed about 30-40% stenosis in the proximal-mid left main coronary artery. We proceeded with the anatomical assessment of the stenosis. Left main coronary artery ostium was selectively engaged using 6 Algerian JL 3.5 guide catheter. Patient received bivalirudin for procedural anticoagulation. A 0.014 luge guidewire was advanced in the left main and into the left circumflex artery. IVUS was performed using [place] eye inaja catheter on manual pullback. Mildly calcific stenosis was noted in the proximal-mid LCX. Minimal luminal diameter in the stenotic segment of the proximal-mid left main was measured at 3.0 x 3.4 mm with a cross-sectional area of 7.9 millimeters squared. Final angiogram showed preserved flow in the left coronary system after removal of the guidewire. Radial band was applied for local hemostasis. Patient tolerated procedure well without any immediate procedural complications. CONCLUSIONS: CAD- A) about 30-40% stenosis proximal-mid left main (min CSA 7.9 mm2 on IVUS); B) diffuse about 50-60% stenosis proximal-mid LAD; patent previously placed stent in the mid LAD distal to the diagonal branch with minimal lumen loss (bifurcating LAD, diminutive distal LAD) 2. LVEDP elevated at 19 mmHg. LVEF normal on recent pharmacological MPI dated 03/12/2025. PLAN/RECOMMENDATIONS: 1. Patient has proximal-mid left main stenosis with minimal CSA 7.9 mm2 based on today's IVUS. No intervention indicated at this time. Continued surveillance. 2. Moderate diffuse stenosis seen in the proximal-mid LAD. The LAD is a bifurcating vessel and becomes diminutive in the distal segment. Previously placed stent in the mid LAD is patent. Since patient does not have cardiac ischemic symptoms at this time and his LVEF has normalized on recent testing, continuation of medical treatment would be appropriate. 3. Continue optimal tolerated medical treatment including antiplatelet, statin. 4. Follow up with Dr. Alvarez for longitudinal cardiac care. Voice recognition software was used to complete this document, therefore, patient relations manager variances may occur. Jose Levin MD, [facility] 04/06/25 us Jose Levin MD CV CARDIAC CATH PROCEDURES Edite d Result - Final * (ABNORMAL) eGFR (04/06/2025 8:38 AM CDT) eGFR 43(L) >=60 mL/min/1. 73 m2 Comment: Interpretive Data Reference Interval Normal >/= 90 mL/min/1.73m2 Mildly decreased* 60 - 89 mL/min/1.73m2 Mildly to moderately decreased 45 - 59 mL/min/1.73m2 Moderately to severely decreased 30 - 44 mL/min/1.73m2 Severely decreased 15 - 29 mL/min/1.73m2 Kidney Failure < 15 mL/min/1.73m2 *Relative to young adult level Estimated glomerular filtration rate is determined by the 2020 CKD-EPI equation recommended by the National Kidney Foundation (A Unifying Approach to GFR Estimation: Recommendations of the NKF-ASK Task Force on Reassessing the Inclusion of Race in Diagnosing Kidney Disease, JASN 202). The CKD-EPI equation should not be used for patients with unstable renal function and has not been validated in children and those over 70. Current interpretive data was last reviewed 2021. Blood 04/06/2025 8:38 AM CDT 04/06/2025 8:38 AM CDT us Jose Levin MD LAB BLOOD ORDERABLES Final Resul t [facility] [address] Department [place] [address] * (ABNORMAL) Comprehensive metabolic panel (04/06/2025 8:38 AM CDT) Sodium 134(L) 135 - 145 mmol/L Potassium, pl 5.3(H) 3.3 - 4.9 mmol/L [facility] Comment:Hemolysis present. R esults may be affected. Chloride 105 97 - 110 mmol/L [facility] CO2 18(L) 22 - 32 mmol/L [facility] Anion gap 11 2 - 15 mmol/L [facility] BUN 34(H) 6 - 25 mg/dL [facility] Creatinine 1.60(H) 0.80 - 1.30 mg/dL [facility] Glucose 146 70 - 199 mg/dL [facility] Comment: Interpretive Data Fasting glucose >/= 126 mg/dl is diagnostic for diabetes. Fasting is defined as no caloric intake for at least 8 hours. Fasting glucose between 100 mg/dl to 125 mg/dl is diagnostic of prediabetes. In a patient with classic symptoms of hyperglycemia or hyperglycemic crisis, a random glucose >/= 200 mg/dl is diagnostic for diabetes. In the absence of unequivocal hyperglycemia, results should be confirmed by repeat testing. The classification and Diagnosis of Diabetes Diabetes Care 202; 46: S19-S40. Current interpretive data was last revised 2022. Calcium 9.1 8.5 - 10.3 mg/dL [facility] Bilirubin, total 0.6 0.1 - 1.2 mg/dL [facility] Protein, pl 7.4 6.5 - 8.5 g/dL [facility] Albumin 3.9 3.5 - 5.0 g/dL [facility] Alk phos 70 40 - 130 Units/L [facility] ALT 17 7 - 55 Units/L [facility] AST 27 10 - 50 Units/L [facility] Comment:Hemolysis present. R esults may be affected. Blood 04/06/2025 8:38 AM CDT 04/06/2025 8:38 AM CDT us Jose Levin MD LAB BLOOD ORDERABLES Final Resul t [facility] [address] Department [place] [address] * POCT glucose (04/06/2025 8:12 AM CDT) Pathologist [facility] Glucose, POC 143 70 - 199 mg/dL Blood 04/06/2025 8:12 AM CDT 04/06/2025 8:12 AM CDT Jose Levin MD LAB POCT ORDERABLES - DEVICE Fin al Result Performing Organization Address [facility] Co de Phone Number [facility] [address] Department [employer] [place], [place] [id number] * (ABNORMAL) CBC with auto differential (04/01/2025 10:03 AM CDT) [facility] WBC 6.5 3.4 - 10.8 x10E3/uL [facility] - 01 RBC 4.23 4.14 - 5.80 x10E6/uL [facility] - 01 Hgb 13.6 13.0 - 17.7 g/dL [facility] - 01 Hct 41.8 37.5 - 51.0 % [facility] - 01 MCV 99(H) 79 - 97 fL [facility] - 01 MCH 32.2 26.6 - 33.0 pg [facility] - 01 MCHC 32.5 31.5 - 35.7 g/dL [facility] - 01 Rdw 11.8 11.6 - 15.4 % [facility] - 01 Platelets 260 150 - 450 x10E3/uL [facility] - 01 Neutrophils pct 79 Not Estab. % [facility] - 01 Lymphs pct 12 Not Estab. % [facility] - 01 Monocytes pct 6 Not Estab. % [facility] - 01 Eosinophils pct 2 Not Estab. % [facility] - 01 Basophil pct 1 Not Estab. % [facility] - 01 Neutrophil abs 5.2 1.4 - 7.0 x10E3/uL [facility] - 01 Lymphs (Absolute) 0.8 0.7 - 3.1 x10E3/uL [facility] - 01 Monocyte abs 0.4 0.1 - 0.9 x10E3/uL [facility] - 01 Eosinophils, abs 0.1 0.0 - 0.4 x10E3/uL [facility] - 01 Basophils, abs 0.1 0.0 - 0.2 x10E3/uL [facility] - 01 Immature Granulocytes 0 Not Estab. % [facility] - 01 Immature Grans (Abs) 0.0 0.0 - 0.1 x10E3/uL [facility] - 01 Blood 04/01/2025 10:0 3 AM CDT 04/01/2025 Narrative [facility] - 04/01/2025 11:08 PM CDT Performed at: [address] [id number] Speech Coach: Naeem Oliveros PhD, Phone: [phone] us Alba Alvarez MD LAB BLOOD ORDERABLES Yanely l [facility] 01 * (ABNORMAL) Comprehensive metabolic panel (04/01/2025 10:03 AM CDT) Glucose 113(H) 70 - 99 mg/dL [facility] - 01 BUN 24 8 - 27 mg/dL [facility] - 01 Creatinine, Serum 1.33(H) 0.76 - 1.27 mg/dL [facility] - 01 eGFR 54(L) >59 mL/min/1.7 3 [facility] - 01 BUN/creat ratio 18 10 - 24 [facility] - 01 Sodium 138 134 - 144 mmol/L [facility] - 01 Potassium, sr 5.5(H) 3.5 - 5.2 mmol/L [facility] - 01 Chloride 103 96 - 106 mmol/L [facility] - 01 CO2 23 20 - 29 mmol/L [facility] - 01 Calcium 9.2 8.6 - 10.2 mg/dL [facility] - 01 Protein, sr 6.7 6.0 - 8.5 g/dL [facility] - 01 Albumin 4.4 3.8 - 4.8 g/dL [facility] - 01 Globulin, Total 2.3 1.5 - 4.5 g/dL [facility] - 01 Bilirubin, Total 0.6 0.0 - 1.2 mg/dL [facility] - 01 Alk phos 80 47 - 123 IU/L [facility] - 01 Comment:Please note refere nce interval change AST 40 0 - 40 IU/L [facility] - 01 ALT 37 0 - 44 IU/L [facility] - 01 Blood 04/01/2025 10:0 3 AM CDT 04/01/2025 Narrative [facility] - 04/02/2025 3:07 AM CDT Performed at: 01 - [facility] [address] [id number] Speech Coach: Naeem Oliveros PhD, Phone: [phone] us Alba Alvarez MD LAB BLOOD ORDERABLES Yanely l Result [facility] - 01 * NM MPI SPECT (Rest and/or Stress) Multiple Studies (03/12/2025 12:18 PM CDT) Anatomical Region Laterality Modality Body N/A Electrocardiogra phy 03/12/2025 10:3 0 AM CDT Narrative 03/12/2025 4:[address] [facility] Medical Group Cardiology [address] [facility] [address] [address] [address] [facility] [address], [place] [address] [address] , [place] [address] P:[phone] P:[phone] MPI Imaging Report Patient Name: IQRA QUIÑONES L : 1945 Study Date: 03/12/2025 10:30:00 AM Sex: M Tech: WALDO HERNANDEZ Location: [facility] Provider: ALBA ALVAREZ Height(Cm): 165.1 BSA: Weight(Kg): 69.4 Heart Rate: 119 BMI: 25.46 Order Provider: ALBA ALVAREZ PHYSICIAN: Primary Care Physician: Dr. Muñiz. [facility] Physician: Evangelist Alvarez M.D. Stress Supervision: Evangelist Alvarez M.D. Stress Interpreting Physician: Evangelist Alvarez M.D. Image Interpreting Physician: Evangelist Alvarez M.D. PROCEDURES: Pharmacologic SPECT Report: Myocardial perfusion imaging with Tc99M Sestamibi SPECT at rest and stress post regadenoson (Lexiscan) infusion. INDICATIONS: Hypertension, Diabetes, Family Hx CAD, and I25.118 Atherosclerotic heart disease of [place] coronary artery with other forms of angina pectoris. FINDINGS: Procedural Findings: One day rest/stress was used. Tc99m Sestamibi injected IV at rest was 10.4 millicuries 32.8 millicuries of Tc99M Sestamibi injected IV during Lexiscan stress Lexiscan 0.4mg administered IV over 10 seconds. Patient had no symptoms during stress test. Baseline heart rate was 65 BPM Maximum Heart Rate Achieved was: 91 BPM Baseline blood pressure was 104/53 mmHg Post Stress Blood Pressure was 95/55 mmHg Termination: Protocol complete. Resting ECG: Normal sinus rhythm. Cannot r/o anteroseptal infarct - age uncertain. Post ECG: No diagnostic ST changes. Arrhythmia: No arrhythmias seen. Perfusion Findings: Abnormal perfusion imaging - see below. Technical quality of study is excellent. Left ventricle cavity size at rest is normal. Left ventricle cavity size with stress is unchanged. A TID of 0.90 was automatically calculated. defect 1: Size is medium. Severity is moderate. Location of defect is in the mid anteroseptal segment, mid inferoseptal segment, apical septal segment and apex. Reversibility is not present, defect is fixed. Type of defect is infarction. defect 2: Size is medium. Severity is mild to moderate in intensity. Location of defect is in the mid inferolateral segment and apical lateral segment. Reversibility is full. Type of defect is ischemia. LV Function: Global left ventricular function is normal. Left ventricular ejection fraction is 65 %. CONCLUSIONS: Global left ventricular function is normal. Left ventricular ejection fraction is 65 %. Size is medium. Severity is moderate. Location of defect is in the mid anteroseptal segment, mid inferoseptal segment, apical septal segment and apex. Reversibility is not present, defect is fixed. Type of defect is infarction. Size is medium. Severity is mild to moderate in intensity. Location of defect is in the mid inferolateral segment and apical lateral segment. Reversibility is full. Type of defect is ischemia. Myocardial perfusion imaging is abnormal. Negative EKG portion of stress test. Attenuation correction utilized for the interpretation of this study. Electronically Signed By: Alba Alvarez MD 03/12/2025 4:19:29 PM CDT Electronically Signed By: Alba Alvarez MD 03/12/2025 4:19:29 PM CDT Procedure Note Alba Alvarez MD - 03/12/2025 [facility] Cardiology [address] [facility] [address] [address] [address] [facility] [address] [place] [address] [address] [place] [address] P:[phone] P:[phone] MPI Imaging Report Patient Name: IQRA QUIÑONES L : 1945 Study Date: 03/12/2025 10:30:00 AM Sex: M Tech: [facility] Location: [facility] Provider: ALBA ALVAREZ Height(Cm): 165.1 BSA: Weight(Kg): 69.4 Heart Rate: 119 BMI: 25.46 Order Provider: ALBA ALVAREZ PHYSICIAN: Primary Care Physician: Dr. Muñiz. [facility] Physician: Evangelist Alvarez M.D. Stress Supervision: Evangelist Alvarez M.D. Stress Interpreting Physician: Billy Moreno Image Interpreting Physician: Evangelist Alvarez M.D. PROCEDURES: Pharmacologic SPECT Report: Myocardial perfusion imaging with Tc99M Sestamibi SPECT at rest and stresspost regadenoson (Lexiscan) infusion. 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 FINDINGS: Procedural Findings: One day rest/stress was used. Tc99m Sestamibi injected IV at rest was 10.4 millicuries 32.8 millicuries of Tc99M Sestamibi injected IV during Lexiscan stress Lexiscan 0.4mg administered IV over 10 seconds. Patient had no symptoms during stress test. Baseline heart rate was 65 BPM Maximum Heart Rate Achieved was: 91 BPM Baseline blood pressure was 104/53 mmHg Post Stress Blood Pressure was 95/55 mmHg Termination: Protocol complete. Resting ECG: Normal sinus rhythm. Cannot r/o anteroseptal infarct - age uncertain. Post ECG: No diagnostic ST changes. Arrhythmia: No arrhythmias seen. Perfusion Findings: Abnormal perfusion imaging - see below. Technical quality of study isexcellent. Left ventricle cavity size at rest is normal. Left ventricle cavity size withstress is unchanged. A TID of 0.90 was automatically calculated. defect 1: Size is medium. Severity is moderate. Location of defect is in the midanteroseptal segment, mid inferoseptal segment, apical septal segment and apex.Reversibility is not present, defect is fixed. Type of defect is infarction. defect 2: Size is medium. Severity is mild to moderate in intensity. Location ofdefect is in the mid inferolateral segment and apical lateral segment. Reversibility isfull. Type of defect is ischemia. LV Function: Global left ventricular function is normal. Left ventricular ejectionfraction is 65 %. CONCLUSIONS: Global left ventricular function is normal. Left ventricular ejectionfraction is 65 %. Size is medium. Severity is moderate. Location of defect is in the midanteroseptal segment, mid inferoseptal segment, apical septal segment and apex.Reversibility is not present, defect is fixed. Type of defect is infarction. Size is medium. Severity is mild to moderate in intensity. Location ofdefect is in the mid inferolateral segment and apical lateral segment. Reversibility isfull. Type of defect is ischemia. Myocardial perfusion imaging is abnormal. Negative EKG portion of stress test. Attenuation correction utilized for the interpretation of this study. Electronically Signed By: Alba Alvarez MD 03/12/2025 4:19:29 PM CDT Electronically Signed By: Alba Alvarez MD 03/12/2025 4:19:29 PM CDT Alba Alvarez MD IMG NM PROCEDURES Final R esult * (ABNORMAL) POCT lipid panel (03/05/2025 10:59 AM CDT) Cholesterol, POC 99 <200 MG/DL HDL, POC 20(A) >=40 mg/dL Triglycerides, POC 167(A) <=149 mg/dL LDL Cholesterol POC 45 <=129 mg/dL Cholesterol Total, POC 99 30 - 199 mg/dL Capillary blood 03/05/2025 1 0:59 AM CDT Alba Alvarez MD POINT OF CARE TEST ORDERA BLES Final Result from Last 3 Months Insurance [facility] [employer] PPO Care Teams Labor Economics Teacher Relationship Specialty Start Date End Date Marko Muiñz MD PCP - General Family Medicine 07/15/19
--- OUTSIDE RECORDS SUMMARY | 2025-05-21 10:56 | XMS_ITS | Encounter Summary ---
Author Organization [facility] Address [address] [place] [address] Care Team Providers Care Kiln Maintenance Name Role Phone Marko Muñiz MD Primary Care Provider + Encounter Details Date Type Department Care Team (Late st Contact Info) Description 12/14/2022 Lab Requisition [facility] - DermPath Lab [address] [facility], [place] [phone] Radha Ravi DO [address] [facility] 3 [place] [address] Social History Tobacco Use Types Packs/Day Years [...] AM CDT) Case Report Dermatopathology Report Case: [id number] Authorizing Provider: Radha Ravi DO Collected: 12/14/2022 10:46 AM Ordering Location: [facility] DermPath Lab Received: 12/15/2022 01:12 PM Pathologist: Farzaneh Hickey MD Specimen: Skin, left scalp 1:57 PM CDT DERMATOPATHOLOGY LABORATORY Final Diagnosis Specimen A. SKIN, left scalp: SQUAMOUS CELL CARCINOMA, KERATOACANTHOMA TYPE; SUPERFICIAL PORTIONS OF (C44.42) (see microscopic description) 3 1:57 PM CDT DERMATOPATHOLOGY LABORATORY at 1357 CDT Clinical History R/O NMSC 3 1:57 PM CDT DERMATOPATHOLOGY LABORATORY Gross Description [...] Additional deeper sections were obtained and reviewed. 3 1:57 PM CDT DERMATOPATHOLOGY LABORATORY Disclaimer An external and internal positive and negative controls are appropriate for the histochemical, immunohistochemical and immunofluorescence stain(s) in this case (if any), except where stated explicitly. The performance characteristics of the stain(s) cited in this report were developed and its performance characteristic determined by the Dermatopathology Laboratory at [facility], directed by Dr. Batool Mckoy. These tests need not be, and therefore are not, approved by the [place] Food and Drug Administration. The tests are used for clinical purposes. Billing Codes Specimen Charges Stain Charges 73622 1 3 1:57 PM CDT DERMATOPATHOLOGY LABORATORY Embedded Images 3 1:57 PM CDT DERMATOPATHOLOGY LABORATORY Pathology/Cytolo gy TISSUE SPECIMEN FROM SKIN / Unknown 12/14/2022 10:46 AM CDT 12/15/2022 1:12 PM CDT us Radha Ravi DO LAB - PATHOLOGY/CYTOLOGY ORDERABLES Final Result DERMATOPATHOLOGY LABORATORY [facility] - Department of Dermatology [address] [place] [address], [facility] [phone] documented in this encounter Visit Diagnoses Not on filedocumented in this encounter Care Teams Kiln Maintenance Relationship Specialty Start Date End Date Marko Muñiz MD [address] [address] PCP - General 12/27/20 documented as of this encounter
--- OUTSIDE RECORDS SUMMARY | 2025-05-21 10:56 | XMS_ITS | Clinical Summary ---
Author Organization [facility] Address [address] [facility] [place] [address] Care Team Providers Care Beam Carrier Hauler Pusher Name Role Phone Marko Muñiz MD Primary Care Provider + Source Comments [facility],non-owned Affiliates and Associated Physician Practices is amultiple site organization consisting of ambulatory clinics and hospital sitesin [place], [place], [place] and [place]. This disclosure is being madepursuant to the Care Everywhere program and may not contain all information available regarding this patient. Last updated 18.[facility] Social History Tobacco Use Types Packs/Day Years [...] yrs (1 - 1-dose 75+ series) 2019 DEPRESSION SCREENING 07/09/2024 COVID-19 VACCINE (1 - 2023-2 5 season) 2025 INFLUENZA VACCINE (#1) 2025 HEPATITIS B VACCINE Aged Out No [...] file (Home) Address: [address] [address] Payer ID:Not on file Group ID:Not on file Type:Self Pay Address: [place], [place] ESSENCE MEDICARE ADV PPO Care Teams Beam Carrier Hauler Pusher Relationship Specialty Start Date End Date Marko Muñiz MD [address] [place] [address] [address] [place] [address] PCP - General 12/27/20
--- OUTSIDE RECORDS SUMMARY | 2025-05-21 10:56 | XMS_ITS ---
Author Organization [facility] [place] [address] Address [address] [place] [address] Care Team Providers Care Warehouse Unloader Name Role Phone Marko Muñiz MD Primary Care Prov ider Active Problems Problem Noted Date Diagnosed Date Cardiovascular stress test abnormal 03/16/2025 Visit for wound check 02/03/2020 Visit for wound check 01/27/2020 Automatic implantable cardiac defibrillator in s itu 01/22/2020 Overview (01/22/2020): [employer] Single ICD. Dx; NICM. DOI 01/20/2020[facility]. [employer] remote home monitoring. At risk for sudden cardiac 01/13/2020 Chronic prostatitis 01/13/2020 Hypertriglyceridemia 09/15/2019 Chronic systolic heart failure 08/25/2019 Shortness of breath 08/25/2019 Coronary artery disease of n ative artery of [place] heart with stable angina pectoris 08/04/2019 Hyperlipidemia [...] Lifetime Dose Automatic Entry Manual Entr y Fluoro Time 12 minutes 0 minutes 12 minutes Air kerma at the reference point (Ka,r) 542 mGy 0 mGy 542 mGy DAP 1,832 Gy-cm2 0 Gy-cm2 1,832 Gy-cm2
--- OUTSIDE RECORDS SUMMARY | 2025-05-21 10:56 | XMS_ITS | Encounter Summary ---
Author Organization [facility] Address [address] [place] [address] Care Team Providers Care Orthopedic Coder Name Role Phone Marko Muñiz MD Primary Care Provider + Encounter Details Date Type Department Care Team (Late st Contact Info) Description 10/17/2023 Lab Requisition [facility] - DermPath Lab [address] [facility] [place] [phone] Radha Ravi DO [address] [facility] 3 [place] [address] Social History Tobacco Use Types Packs/Day Years [...] AM CDT) Case Report Dermatopathology Report Case: [id number] Authorizing Provider: Radha Ravi DO Collected: 10/17/2023 [...] SPECIMEN (D04.39) (see microscopic description and comment) 4 12:45 PM T DERMATOPATHOLOGY LABORATORY at 1245 CDT Clinical History A-B: R/O NMSC 4 12:45 PM CDT DERMATOPATHOLOGY LABORATORY Gross Description Specimen [...] measuring 6x6x1 mm. Jar 0. 12:45 PM [facility] Microscopic Description Specimen [...] carcinoma cannot be ruled out. 12:45 PM T DERMATOPATHOLOGY LABORATORY Disclaimer An external and internal positive and negative controls are appropriate for the histochemical, immunohistochemical and immunofluorescence stain(s) in this case (if any), except where stated explicitly. The performance characteristics of the stain(s) cited in this report were developed and its performance characteristic determined by the Dermatopathology Laboratory at [facility], directed by Dr. Batool Mckoy. These tests need not be, and therefore are not, approved by the [place] Food and Drug Administration. The tests are used for clinical purposes. Billing Codes Specimen Charges Stain Charges 02000 13568 1 1 4 12:45 PM CDT DERMATOPATHOLOGY LABORATORY Embedded Images 12:45 PM CDT DERMATOPATHOLOGY LABORATORY Pathology/Cytology TISSUE SPECIMEN FROM SKIN / Unknown 10/17/2023 9:57 AM CDT 10/18/2023 7:54 AM CDT Miscellaneous samples (specimen) TISSUE SPECIMEN FROM SKIN / Unknown 10/17/2023 9:57 AM CDT 10/18/2023 7:54 AM CDT us Radha Ravi DO LAB - PATHOLOGY/CYTOLOGY ORDERABLES Final Result DERMATOPATHOLOGY LABORATORY [facility] - Department of Dermatology [facility] [address] [place] [address], [address] [phone] documented in this encounter Visit Diagnoses Not on filedocumented in this encounter Care Teams Orthopedic Coder Relationship Specialty Start Date End Date Marko Muñiz MD [address] [place] [address] PCP - General 12/27/20 documented as of this encounter
--- OUTSIDE RECORDS SUMMARY | 2025-05-21 10:56 | XMS_ITS | Encounter Summary ---
Author Organization [facility] Address [address] [facility] [place] [address] Care Team Providers Care Fish Smoker Name Role Phone Marko Muñiz MD Primary Care Provider + Encounter Details Date Type Department Care Team (Late st Contact Info) Description 03/22/2023 Lab Requisition [facility] - DermPath Lab [address] [facility], [place] [phone] Radha Ravi DO [address] [facility] 3 [place] [address] Social History Tobacco Use Types Packs/Day Years [...] AM CDT) Case Report Dermatopathology Report Case: [id number] Authorizing Provider: Radha Ravi DO Collected: 03/22/2023 09:54 AM Ordering Location: [facility] Derm[facility] Lab Received: 03/23/2023 08:07 AM Pathologist: Ramandeep Matthews MD Specimen: Skin, right zygoma 3 1:46 PM CDT DERMATOPATHOLOGY LABORATORY Final Diagnosis Specimen A. SKIN, right zygoma: SQUAMOUS CELL CARCINOMA, ACANTHOLYTIC TYPE (C44.329) 3 1:46 PM CDT DERMATOPATHOLOGY LABORATORY at 1346 CDT Clinical History R/O NMSC 3 1:46 PM [...] characteristic determined by the Dermatopathology Laboratory at [facility], directed by Dr. Batool Mckoy. These tests need not be, and therefore are not, approved by the [place] Food and Drug Administration. The tests are used for clinical purposes. Billing Codes Specimen Charges Stain Charges 03492 1 3 1:46 PM CDT DERMATOPATHOLOGY LABORATORY Embedded Images 3 1:46 PM CDT DERMATOPATHOLOGY LABORATORY Pathology/Cytolo gy TISSUE SPECIMEN FROM SKIN / Unknown 03/22/2023 9:54 AM CDT 03/23/2023 8:07 AM CDT us Radha Ravi DO LAB - PATHOLOGY/CYTOLOGY ORDERABLES Final Result DERMATOPATHOLOGY LABORATORY [facility] - Department of Dermatology [address], [address]rd [place] [address], [facility] [phone] documented in this encounter Visit Diagnoses Not on filedocumented in this encounter Care Teams Fish Smoker Relationship Specialty Start Date End Date Marko Muñiz MD [address] [address] PCP - General 12/27/20 documented as of this encounter
[2025-05-21 11:15] LABS: INR 1.0; Partial Thromboplastin Time 30.6 Seconds (22.3-36.8); Prothrombin Time 13.5 Seconds (11.1-14.7)
[2025-05-21 11:29] LABS: Anion Gap 8 mmol/L (4-12); Blood Urea Nitrogen 27 mg/dL (9-20); Carbon Dioxide 25 mmol/L (22-30); Chloride 105 mmol/L (98-107); Estimated Glomerular Filt Rate 45; Sodium 138 mmol/L (137-145)
[2025-05-21 11:41] LABS: Calcium 8.9 mg/dL (8.4-10.2); Glucose 175 mg/dL (65-110); Potassium 5.1 mmol/L (3.4-5.0)
== END 2025-05-21 10:00 | disposition home or self-care (01) ==
LOC: ANHSURGERY 10:06
PROVIDERS: Anesthesiology; PCP Family Medicine Adolescent Medicine; Visit Provider Urology
DX: N18.31 Chronic kidney disease, stage 3a (principal); E11.22 Type 2 diabetes mellitus with diabetic chronic kidney disease; Z95.810 Presence of automatic (implantable) cardiac defibrillator
CPT/HCPCS: 36415; 80048; 85610; 85730; 93005

== ENCOUNTER 2025-05-28 01:44 | Day surgery (SDC) | payer OTHER, SELFPAY ==
--- OUTSIDE RECORDS SUMMARY | 2009-10-27 09:15 | XMS_ITS | Continuity of Care Document ---
Author Organization [facility] Address [address] [place] [address] Phone Care Team Providers Care Political Worker Name Role Phone Yohannes Alvino Unavailable Unavailable Procedures Procedure Date Eye Exam, New Patient Refraction Advance Directives Directive Yes / No Effective Date File Name No Information Encounters Encounter Description Practice Location Reason(s) For Visit Diagnoses Date Provider Providers Copied on Encounter [facility], [address], [place], [place], [address], tel:[phone] [facility] No Information 1201 0 Yohannes Alvino. [address], [place], [address], [place]. tel:[phone] Family History Family Member Type Diagnosis Age At Onset No Information Payers Payer name Insurance type Covered republican ID Authoriza tidavid(s) [facility] CI [id number] Social History Type Description Quantity Date Captured Comments Sex Male Smoking Status No Information Chief Complaint And Reason For Visit No Information Reason For Referral Reason For Referral No Information History Of Present Illness Encounter Date Complaint History Of Prese nt Illness No Information Functional Status Date Functional Assessmen t No Information Instructions Date Instruction Additional Infor mation No Information Assessments Type Assessment Date No Information Patient Care Teams Name Effective Dates (start - stop) Status Members No Information
--- OUTSIDE RECORDS SUMMARY | 2009-10-27 09:15 | XMS_ITS | Continuity of Care Document ---
Author Organization [facility] Address [address] [place] [address] Phone Care Team Providers Care Reconstructive Dentist Name Role Phone Yohannes Alvino Unavailable Unavailable Procedures Procedure Date Eye Exam, New Patient Refraction Advance Directives Directive Yes / No Effective Date File Name No Information Encounters Encounter Description Practice Location Reason(s) For Visit Diagnoses Date Provider Providers Copied on Encounter [facility], [address], [place], [place], [address], tel:[phone] [facility] No Information 1201 0 Yohannes Alvino. [address] [facility] [address], [place], [address], [place]. tel:[phone] Family History Family Member Type Diagnosis Age At Onset No Information Payers Payer name Insurance type Covered alliance party ID Authoriza tidavid(s) [facility] CI [id number] Social History Type Description Quantity Date Captured [...]
--- OUTSIDE RECORDS SUMMARY | 2009-10-27 09:15 | XMS_ITS | Continuity of Care Document ---
Author Organization [facility] Address [address] [place] [address] Phone Care Team Providers Care Ditch Cleaner Name Role Phone Yohannes Alvino Unavailable Unavailable Procedures Procedure Date Eye Exam, New Patient Refraction Advance Directives Directive Yes / No Effective Date File Name No Information Encounters Encounter Description Practice Location Reason(s) For Visit Diagnoses Date Provider Providers Copied on Encounter [facility], [address], [place], [place], [address], tel:[phone] [facility] No Information 1201 0 Yohannes Alvino. [address] [facility] [address], [place], [address], [place]. tel:[phone] Family History Family Member Type Diagnosis Age At Onset No Information Payers Payer name Insurance type Covered republican ID Authoriza tidavid(s) [facility] CI [id number] Social History Type Description Quantity Date Captured [...]
--- OUTSIDE RECORDS SUMMARY | 2009-10-27 09:15 | XMS_ITS | Continuity of Care Document ---
Author Organization [facility] Address [address] [place] [address] Phone Care Team Providers Care Photographic Press Screwmaker Name Role Phone Yohannes Alvino Unavailable Unavailable Procedures Procedure Date Eye Exam, New Patient Refraction Advance Directives Directive Yes / No Effective Date File Name No Information Encounters Encounter Description Practice Location Reason(s) For Visit Diagnoses Date Provider Providers Copied on Encounter [facility], [address], [place], [place], [address], tel:[phone] [facility] No Information 1201 0 Yohannes Alvino. [address] [facility] [address], [place], [address], [place]. tel:[phone] Family History Family Member Type Diagnosis Age At Onset No Information Payers Payer name Insurance type Covered republican ID Authoriza tidavid(s) [facility] CI [id number] Social History Type Description Quantity Date Captured [...]
--- OUTSIDE RECORDS SUMMARY | 2009-10-27 09:15 | XMS_ITS | Continuity of Care Document ---
Author Organization [facility] Address [address] [place] [address] Phone Care Team Providers Care Hat Lining Paster Name Role Phone Yohannes Alvino Unavailable Unavailable Procedures Procedure Date Eye Exam, New Patient Refraction Advance Directives Directive Yes / No Effective Date File Name No Information Encounters Encounter Description Practice Location Reason(s) For Visit Diagnoses Date Provider Providers Copied on Encounter [facility], [address], [place], [place], [address], tel:[phone] [facility] No Information 1201 0 Yohannes Alvino. [address] [facility] [address], [place], [address], [place]. tel:[phone] Family History Family Member Type Diagnosis Age At Onset No Information Payers Payer name Insurance type Covered green party ID Authoriza tidavid(s) [facility] CI [id number] Social History Type Description Quantity Date Captured [...]
--- OUTSIDE RECORDS SUMMARY | 2009-10-27 09:15 | XMS_ITS | Continuity of Care Document ---
Author Organization [facility] Address [address] [place] [address] Phone Care Team Providers Care Senior Director Name Role Phone Yohannes Alvino Unavailable Unavailable Procedures Procedure Date Eye Exam, New Patient Refraction Advance Directives Directive Yes / No Effective Date File Name No Information Encounters Encounter Description Practice Location Reason(s) For Visit Diagnoses Date Provider Providers Copied on Encounter [facility], [address], [place], [place], [address], tel:[phone] [facility] No Information 1201 0 Yohannes Alvino. [address] [facility] [address], [place], [address], [place]. tel:[phone] Family History Family Member Type Diagnosis Age At Onset No Information Payers Payer name Insurance type Covered libertarian ID Authoriza tidavid(s) [facility] CI [id number] Social History Type Description Quantity Date Captured [...]
--- OUTSIDE RECORDS SUMMARY | 2009-10-27 09:15 | XMS_ITS | Continuity of Care Document ---
Author Organization [facility] Address [address] [place] [address] Phone Care Team Providers Care Field Account Director Name Role Phone Yohannes Alvino Unavailable Unavailable Procedures Procedure Date Eye Exam, New Patient Refraction Advance Directives Directive Yes / No Effective Date File Name No Information Encounters Encounter Description Practice Location Reason(s) For Visit Diagnoses Date Provider Providers Copied on Encounter [facility], [address], [place], [place], [address], tel:[phone] [facility] No Information 1201 0 Yohannes Alvino. [address] [facility] [address], [place], [address], [place]. tel:[phone] Family History Family Member Type Diagnosis Age At Onset No Information Payers Payer name Insurance type Covered libertarian ID Authoriza tidavid(s) [facility] CI [id number] Social History Type Description Quantity Date Captured [...]
--- OUTSIDE RECORDS SUMMARY | 2009-10-27 09:15 | XMS_ITS | Continuity of Care Document ---
Author Organization [facility] Address [address] [place] [address] Phone Care Team Providers Care Supplemental Manager Name Role Phone Yohannes Alvino Unavailable Unavailable Procedures Procedure Date Eye Exam, New Patient Refraction Advance Directives Directive Yes / No Effective Date File Name No Information Encounters Encounter Description Practice Location Reason(s) For Visit Diagnoses Date Provider Providers Copied on Encounter [facility], [address], [place], [place], [address], tel:[phone] [facility] No Information 12[address] 0 Yohannes Alvino. [address] [facility] [address], [place], [address], [place]. tel:[phone] Family History Family Member Type Diagnosis Age At Onset No Information Payers Payer name Insurance type Covered green party ID Authoriza tidavid(s) [facility] CI [id number] Social History Type Description Quantity Date Captured [...]
--- OUTSIDE RECORDS SUMMARY | 2009-10-27 09:15 | XMS_ITS | Continuity of Care Document ---
Author Organization [facility] Address [address] [place] [address] Phone Care Team Providers Care Geography Faculty Member Name Role Phone Yohannes Alvino Unavailable Unavailable Procedures Procedure Date Eye Exam, New Patient Refraction Advance Directives Directive Yes / No Effective Date File Name No Information Encounters Encounter Description Practice Location Reason(s) For Visit Diagnoses Date Provider Providers Copied on Encounter [facility], [address], [place], [place], [address], tel:[phone] [facility] No Information 12[address] 0 Yohannes Alvino. [address] [facility] [address], [place], [address], [place]. tel:[phone] Family History Family Member Type Diagnosis Age At Onset No Information Payers Payer name Insurance type Covered democrat ID Authoriza tidavid(s) [facility] CI [id number] Social History Type Description Quantity Date Captured [...]
--- OUTSIDE RECORDS SUMMARY | 2009-10-27 09:15 | XMS_ITS | Continuity of Care Document ---
Author Organization [facility] Address [address] [place] [address] Phone Care Team Providers Care Taxi Cab Driver Name Role Phone Yohannes Alvino Unavailable Unavailable Procedures Procedure Date Eye Exam, New Patient Refraction Advance Directives Directive Yes / No Effective Date File Name No Information Encounters Encounter Description Practice Location Reason(s) For Visit Diagnoses Date Provider Providers Copied on Encounter [facility], [address], [place], [place], [address], tel:[phone] [facility] No Information 1201 0 Yohannes Alvino. [address] [facility] [address], [place], [address], [place]. tel:[phone] Family History Family Member Type Diagnosis Age At Onset No Information Payers Payer name Insurance type Covered democrat ID Authoriza tidavid(s) [facility] CI [id number] Social History Type Description Quantity Date Captured [...]
--- OUTSIDE RECORDS SUMMARY | 2009-10-27 09:15 | XMS_ITS | Continuity of Care Document ---
Author Organization [facility] Address [address] [place] [address] Phone Care Team Providers Care Workers' Compensation Mediator Name Role Phone Yohnanes Alvino Unavailable Unavailable Procedures Procedure Date Eye Exam, New Patient Refraction Advance Directives Directive Yes / No Effective Date File Name No Information Encounters Encounter Description Practice Location Reason(s) For Visit Diagnoses Date Provider Providers Copied on Encounter [facility], [address], [place], [place], [address], tel:[phone] [facility] No Information 1201 0 Yohannes Alvino. [address] [facility] [address], [place], [address], [place]. tel:[phone] Family History Family Member Type Diagnosis Age At Onset No Information Payers Payer name Insurance type Covered democrat ID Authoriza tidavid(s) [facility] CI [id number] Social History Type Description Quantity Date Captured [...]
--- OUTSIDE RECORDS SUMMARY | 2009-10-27 09:15 | XMS_ITS | Continuity of Care Document ---
Author Organization [facility] Address [address] [place] [address] Phone Care Team Providers Care First Assistant Manager Name Role Phone Yohannes Alvino Unavailable Unavailable Procedures Procedure Date Eye Exam, New Patient Refraction Advance Directives Directive Yes / No Effective Date File Name No Information Encounters Encounter Description Practice Location Reason(s) For Visit Diagnoses Date Provider Providers Copied on Encounter [facility], [address], [place], [place], [address], tel:[phone] [facility] No Information 1201 0 Yohannes Alvino. [address] [facility] [address], [place], [address], [place]. tel:[phone] Family History Family Member Type Diagnosis Age At Onset No Information Payers Payer name Insurance type Covered constitution party ID Authoriza tidavid(s) [facility] CI [id number] Social History Type Description Quantity Date Captured [...]
--- OUTSIDE RECORDS SUMMARY | 2009-10-27 09:15 | XMS_ITS | Continuity of Care Document ---
Author Organization [facility] Address [address] [place] [address] Phone Care Team Providers Care Tool Die Maker Name Role Phone Yohannes Alvino Unavailable Unavailable Procedures Procedure Date Eye Exam, New Patient Refraction Advance Directives Directive Yes / No Effective Date File Name No Information Encounters Encounter Description Practice Location Reason(s) For Visit Diagnoses Date Provider Providers Copied on Encounter [facility], [address], [place], [place], [address], tel:[phone] [facility] No Information 1201 0 Yohannes Alvino. [address] [facility] [address], [place], [address], [place]. tel:[phone] Family History Family Member Type Diagnosis Age At Onset No Information Payers Payer name Insurance type Covered libertarian ID Authoriza tidavid(s) [facility] CI [id number] Social History Type Description Quantity Date Captured [...]
--- NOTE | 2025-05-18 11:17 | PC.NURSE ---
[facility] has started construction of its new state of the art ER which will open Spring 2026. With this, we anticipate parking may be a challenge for some our surgical patients and families. Parking spaces are limited but are available for all Surgical, obstetrics, and ER patients sharing this lot. If you arrive and find you are having a hard time finding a parking space, please note that we understand the challenges, please drive around the hospital and park near Hospital Entrance 1. When you enter this entrance, you can ask a volunteer to direct or take you back to the surgical waiting area to check in. We appreciate everyone?s understanding of these expected challenges while we build for your future. Report to the Outpatient Waiting Room, entrance under the green pavilion located off [address], at time __12:30 PM on date _05/28/25 . Planned Procedure Time: __2:30 PM .? Time changes happen often and if your time is changed the preop area will call you the afternoon before. - You and your visitor will be asked to self-screen and do not enter if you have any COVID symptoms. Please call surgeon if you need to reschedule. - A mask is optional within the hospital at this time. Patients may have clear liquids (water, carbonated beverages, clear teas, apple juice) until 3 hours prior to surgery( 11:30 AM) with a maximum of 20 ounces. - No food from midnight until time of surgery and no smoking, or chewing tobacco (or any form of nicotine). No chewing gum, candy or mints. Take only the following medications with a SIP of water on the morning of surgery: __CARVEDILOL DO NOT STOP ANY OF YOUR OTHER PRESCRIPTION MEDICATIONS PRIOR TO SURGERY EXCEPT THE FOLLOWING Hold all vitamins and supplements for 3 days per anesthesiologist.LAST DOSE 05/24/25 Medications to discontinue per physician __PATIENT STATES HOLD ASPIRIN 7 DAYS PRE OP PER DR CHAPA Date to take last dose____05/20/25 Please no make-up, nail telugu, hairspray, perfume, deodorant, or body powder the day of surgery.? No jewelry (including any body piercings) or valuables the day of surgery, leave them at home.? Please take a shower or bath the night before, or the morning of, surgery with an antibacterial soap.? Wear comfortable, loose fitting clothing.? Children are encouraged to wear pajamas. - Jewelry must be removed prior to entering the operating room.? Rings and piercings that are not removed may be cut off. - The hospital will not accept responsibility for valuables.? - Please leave all valuables, including medications, at home the day of surgery. If you are going home after surgery, a licensed motorcoach driver must drive you home.? - NO public transportation without another adult if you receive anesthesia. - We recommend that an adult stay with you for 24 hours following discharge. - We also recommend that you do not drive, make important decision, drink alcoholic beverages, or take any drugs that were not prescribed by your health care provider for at least 24 hours after your discharge time. For Pediatric surgeries, we recommend two adults accompany the child home. Follow any additional instructions given to you from your surgeon. Telephone instructions given to __PATIENT and asked if any additional questions and then verbalized understanding. Patient advised to call surgeon office or pre surgery nurse liaison [phone] if any additional questions.
[2025-05-18 11:34] VITALS: BMI 25.8
--- NOTE | 2025-05-22 06:39 | PM.HPGS ---
History of Present Illness History of Present Illness Consent: Risks, benefits, and alternatives have been discussed and questions answered. Patient agrees to proceed with procedure. Chief complaint: hx bladder CA, chronic cystitis Narrative: Kelechi Perry is a 79 year old male with history of urothelial ca. bladder as below: 04/2021. ?CT-abd/pelvis w/wo contrast: normal 07/2021: TURBT: Ta, high-grade with positive biopsy at outside site. -> High Risk 09/2021: ?Completed induction BCG 10/2021: ?Cysto: neg. 01/2022: ?Cysto: neg 04/2022: ?BIlat. RPG: normal 05/2022: ?Cysto.: neg 09/2022: ?TURBT: CIS ?-> ?High Risk ?Induction BCG - SWOG Maintenance BCG (BCG weekly x3 @ months 3, 6, 12, 18. 24. 30, 36) 11/2022: ?Completed Month #3 BCG x3 01/2023: ?Cysto: neg. 02/2023: ?Completed Month #6 BCG x3 05/2023: Cysto. neg 05/2023: ?CT-abd/pelvis w/wo contrast: normal 08/10-: ?Cysto.: neg ?Month #12 BCG x3 08/2023: ?Cytology: positive / FISH: Positive 09/2023: ?mBCG - #18-mo x3 11/2023: ?Cysto: neg. 02/2024: ?Cysto: neg ?Cytology: positive / FISH: positive 03/2024: ?Bladder bx.: normal ?Attempted RPG -> unable to find either ureter ?Bladder cytology: normal ?F/U: 3-months 07/2024: ?Cysto.: negative ?Cytology: atypical ?FISH: positive ?F/U: 3-months ?CT-abd/pelvis w/wo contrast: - non-obstructing left 10mm and 2mm stone (unchanged from 04/2023) ?- otherwise unremarkable 08/12/24 - 08/26/24: mBCG month #30 completed, tolerated well 10/13/24: Cysto.: hyperemia above left dony-trigone ?Cytology: atypical ?FISH: positive 11/13/24: ?Bilat. RPG: J-hooked ureters without obstruction/filling defect ?Bx. hyperemia left lateral wall ?- Pathology: ?Benign cystitis without carcinoma in Situ ?- Cefdinir 300 mg b.i.d. for 3 weeks 02/17/25: ?Cysto.: scant hyperemia left post-lat. -> less than in past ?Cytology: ?Cx.: ?[facility] month #36 Last cysto. 02/17/25:?Patient is still has some in the left posterolateral bladder wall. ? Addendum Note?(Charan Randle MD; 02/18/2025 10:45 AM) PSA: 4.46 / excellent, very stable (actually down a bit) Addendum Note?(Charan Randle MD; 02/19/2025 7:08 AM) Cx.: no growth Addendum Note?(Charan Randle MD; 02/25/2025 5:43 PM) Urine cytology has come back frankly positive. ?I will plan cystoscopy with bladder biopsy, bilateral retrograde pyelography under anesthesia after his next course of maintenance BCG Addendum Note?(Charan Randle MD; 04/03/2025 6:37 AM) Cx.: VINCE Review of Systems Review of Systems: All systems reviewed & are unremarkable except as noted in HPI and below [facility] Past Medical History Medical History BMI 26.0-26.9,adult Vasovagal syncope History of skin cancer basal cell, squamous cell ICD (implantable cardioverter-defibrillator) in place Hyperlipidemia Hypertension CHF (congestive heart failure) EF 30% Cancer of overlapping sites of bladder Cardiomyopathy Diagnosed July 2019 Surgical History Surgical History Hx of heart artery stent Family History Family History Mother Diabetes mellitus Hypertension Alzheimer disease CAD (coronary artery disease) Father Hypertension CAD (coronary artery disease) Acute myocardial infarction Sibling No problems noted. Social History Social History Social History: , retired Smoking status: Never smoker Second hand tobacco smoke exposure: No Alcohol intake: never Substance use: never Substance use type: does not use Do You Feel Safe in your Home?: Yes Lack of Transportation: No Lack of Food: Never True Current Housing: I Have Housing Concerned About Future Housing: No Difficulty Paying Gas/Electric Bills: No Difficulty Paying for Meds: No Currently Unemployed: No Education: Trade/Vocational Certificate Difficulty w/ Childcare or Family Care: No Living arrangements: with family Additional living arrangements comments: Occupation/Education: retired 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 Gender identity (if verbalized by the patient): Male Sexual Orientation (if Verbalized by the Patient): Straight or Heterosexual Spiritual care concerns: No Agree to blood products: Yes Meds Home Medications and Allergies Home Medications ?Medication ?Instructions ?Recorded ?Confirmed ?Type carvedilol 12.5 mg tablet 12.5 mg PO BID 01/19/20 05/19/25 History sacubitril 49 mg-valsartan 51 mg 1 tablet PO BID 01/19/20 05/19/25 History tablet (Entresto) spironolactone 25 mg tablet 12.5 mg PO QAM 01/19/20 05/19/25 History multivitamin 1 tablet PO DAILY 04/06/22 05/19/25 History icosapent ethyl 1 gram capsule 2 g (2 x 1 gram) PO BID #90 caps 07/30/22 05/19/25 Rx (Vascepa) aspirin 81 mg tablet,delayed 81 mg PO DAILY 09/20/22 05/19/25 History release finasteride 5 mg tablet See Rx Instructions .Route 03/13/24 05/19/25 Rx .COMPLEX #90 tabs tamsulosin 0.4 mg capsule 0.4 mg PO DAILY #90 caps 09/03/24 05/19/25 Rx blood sugar diagnostic (Contour #100 ea 10/20/24 05/19/25 Rx Next Test Strips) lancets 33 gauge #100 ea 10/22/24 05/19/25 Rx blood-glucose meter (OneTouch #1 ea 12/25/24 05/19/25 Rx Verio Flex Meter) dapagliflozin propanediol 10 mg 10 mg PO DAILY #30 tabs 02/11/25 05/19/25 Rx tablet (Farxiga) metformin 500 mg tablet,extended 2,000 mg (4 x 500 mg) PO QPM #360 03/17/25 05/19/25 Rx release 24 hr tabs glimepiride 1 mg tablet 1 mg PO QAM #90 tabs 04/06/25 05/19/25 Rx lovastatin 40 mg tablet 40 mg PO QPM #90 tabs 04/13/25 05/19/25 Rx blood sugar diagnostic (OneTouch #100 ea 04/23/25 05/19/25 Rx Verio test strips) fluticasone propionate 50 1 spray intranasal DAILY #16 grams 05/19/25 05/19/25 Rx mcg/actuation nasal spray,suspension meclizine 12.5 mg tablet 12.5 mg PO TID PRN dizziness #30 05/19/25 05/19/25 Rx tabs Allergies Allergy/AdvReac Type Severity Reaction Status Date / Time No Known Allergies Allergy Verified 05/19/25 15:12 Exam Const: General: no acute distress Resp: Effort & Inspection: normal respiratory effort GI: Inspection: non-distended GI Palp: No abdominal tenderness and No Guarding due to palpation present (GI) Auscultation: normal bowel sounds Assessment and Plan Assessment and plan (1) Cancer of overlapping sites of bladder: Code(s): C67.8 - Malignant neoplasm of overlapping sites of bladder Status: Acute Assessment and Plan: Cystoscopy, bladder biopsy, possible TURBT, bilateral retrograde pyelography
[2025-05-28] VITALS (10 sets, daily range): BP systolic 92–120; BP diastolic 47–74; PULSE 54–89; RESP 12–20; TEMP 36.6; O2SAT 100
--- NOTE | ~2025-05-28 | XR_ITS ---
EXAM/PROCEDURE: XR retrograde pyelogram BI HISTORY: BILATERAL RETRO COMPARISON: November 13, 2024 Fluoroscopy time: 14.6 seconds Cumulative Dose: 16.80 mGy FINDINGS/IMPRESSION: No radiologist present for procedure. See operative/procedure notes for complete evaluation. Reviewed, dictated and finalized at location A. WORKER
--- OUTSIDE RECORDS SUMMARY | 2025-05-28 02:19 | XMS_ITS | Clinical Summary ---
Author Organization [facility] Address [address] [place] [address] Care Team Providers Care Glove Factory Sewer Name Role Phone Unavailable Primary Care Provider [...] 75+ series) 2019 COVID-19 Vaccine ( - 2024-2 6 season) 2025 Influenza Adult (#1) 2025 Hepatitis A Vaccines Aged Out No long er eligible based on patient's age to complete this topic Meningococcal B Vaccine Aged Out No l onger eligible based on patient's age to complete this topic Meningococcal Vaccine Aged Out No adonis lucero eligible based on patient's age to complete this topic RSV Immunizations Under 20 Months Aged Out No longer eligible based on patient's age to complete this topic
--- OUTSIDE RECORDS SUMMARY | 2025-05-28 02:19 | XMS_ITS ---
Author Organization [facility] [place] [address] Address [address] [place] [address] Care Team Providers Care Finish Molder Name Role Phone Marko Muñiz MD Primary Care Prov ider Active Problems Problem Noted Date Diagnosed Date Cardiovascular stress test abnormal 03/16/2025 Visit for wound check 02/03/2020 Visit for wound check 01/27/2020 Automatic implantable cardiac defibrillator in s itu 01/22/2020 Overview (01/22/2020): NuConomyroniSocius Single ICD. Dx; NICM. DOI 01/20/2020-[facility]. [employer]Con[employer]Socius remote home monitoring. At risk for sudden cardiac 01/13/2020 Chronic prostatitis 01/13/2020 Hypertriglyceridemia 09/15/2019 Chronic systolic heart failure 08/25/2019 Shortness of breath 08/25/2019 Coronary artery disease of n ative artery of chuloonawick heart with stable angina pectoris 08/04/2019 Hyperlipidemia [...]
--- OUTSIDE RECORDS SUMMARY | 2025-05-28 02:19 | XMS_ITS | Clinical Summary ---
Author Organization [facility] [employer] Address [address] [place] [address] Care Team Providers Care Quill Layer Name Role Phone Marko Muñiz MD Primary Care Provider + Source Comments [facility] [employer],non-owned Affiliates and Associated Physician Practices is amultiple site organization consisting of ambulatory clinics and hospital sitesin [place], [place], [place] and [place]. This disclosure is being madepursuant to the Care Everywhere program and may not contain all information available regarding this patient. Last updated 18.[facility] [employer] Social History Tobacco Use Types Packs/Day Years [...] series) 2019 DEPRESSION SCREENING 07/09/2024 COVID-19 VACCINE ( - 2024-2 6 season) 2025 INFLUENZA VACCINE (#1) 2025 HEPATITIS [...] file (Home) Address: [address] [address] Payer ID:Not on file Group ID:Not on file Type:Self Pay Address: [place], [place] [employer]ENCE MEDICARE ADV PPO Care Teams Quill Layer Relationship Specialty Start Date End Date Marko Muñiz MD [address] [place] [address] [address] [place] [address] PCP - General 12/27/20
--- OUTSIDE RECORDS SUMMARY | 2025-05-28 02:19 | XMS_ITS | Clinical Summary ---
Author Organization [facility] [address] Address [address] [place] [address] Care Team Providers Care Lithographic Artist Name Role Phone Marko Muñiz MD Primary [...] enteric coated tabletIndication s:Coronary artery disease involving nuiqsut coronary artery of nuiqsut heart, angina presence unspecified Take 1 tablet [...] defibrillator in s itu 01/22/2020 Overview (01/22/2020): [employer]iEmergent Views Single ICD. Dx; NICM. DOI 01/20/2020-[facility]. [employer] Views remote home monitoring. 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 08/04/2019 Hyperlipidemia associated with type 2 diabetes m ellitus 08/04/2019 Diabetes mellitus type II, non insulin dependent 08/04/2019 Left ventricular hypertrophy 08/04/2019 Cardiomyopathy 08/04/2019 Basal cell carcinoma (BCC) of skin of ear 2014 Basal cell carcinoma (BCC) of skin of nose 02/05 Encounters Date Type Department Care Team Description 04/07/2025 8:30 AM CDT Ancillary Procedure [facility] Cardiology [facility] [address] [address] Automatic implantable cardiac defibrillator in situ; NICM (nonischemic cardiomyopathy) (HCC) 04/06/2025 10:07 AM CDT - 04/06/2025 11:37 AM CDT Surgery [facility] [address] [place] [address] Jose Levin MD LEFT HEART CATHETERIZATION WITH CORONARY ANGIOGRAPHY AND WITH OR WITHOUT LEFT VENTRICULOGRAM [id number] 04/06/2025 7:56 AM CDT - 04/06/2025 1:26 PM CDT Hospital Encounter [facility] [address] [place] [address] Jose Levin MD Coronary artery disease of nuiqsut artery of nuiqsut heart with stable angina pectoris; Cardiovascular stress test abnormal Discharge Disposition: Discharge to home or self care 04/02/2025 Results Follow-Up [facility] Cardiology at [address] [place] [address] Alba Alvarez MD CBC with auto differential, Comprehensive metabolic panel 03/16/2025 Telephone [facility] Cardiology [address] [place] [address] Alba Alvarez MD 03/16/2025 Results Follow-Up [facility] Cardiology [address] [facility] [address], [place] [address] Alba Alvarez MD NM MPI SPECT (Rest and/or Stress) Multiple Studies 03/12/2025 10:30 AM CDT Ancillary Procedure [facility] Cardiology at [address] [place] [address] Coronary artery disease of nuiqsut artery of nuiqsut heart with stable angina pectoris 03/05/2025 10:45 AM CDT Office Visit [facility] [address] [place] [address] Alba Alvarez MD Coronary artery disease of nuiqsut artery of nuiqsut heart with stable angina pectoris (Primary Dx); [...] ANGIOGRAPHY AND WITH OR WITHOUT LEFT VENTRICULOGRAM 01248; Surgeon: Jose Levin MD; 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; Service: Cardiovascular; Laterality: N/A; CARDIAC CATHETERIZATION 04/06/2025 N/A Procedure: IVUS/OCT CORS OR GRAFTS, FIRST VESSEL (+) [id number]; Surgeon: Jose Levin MD; 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; Service: Cardiovascular; Laterality: N/A; Medical History Medical [...] on file Legal Sex Male 12:47 AM BRICK MOLDER HAND Gender Identity Not on file Sexual Orientation [...] history exists Medical Devices Implanted Type Area Cashier General Device Identifier Shelf Expiration Date Model / Serial / Lot Icd ICD Left: Chest [employer] DeskGod [id number] Synergy 2.5mm 16mm 144cm Radiopaque 1 Access Port Inflation Lumen - [id number] Implanted:Qty: 1 on 08/14/2019 by Jose Levin MD at [facility] Desk[employer] 11/17/2020 [id number] / / Pl[employer]Former[employer]) [id number] Device Closure Angio-Seal Vip Bondek-Plus Polyglyd L70 Cm Od6 Fr Odsec.035 In Vascular - [id number] Implanted:Qty: 1 on 08/14/2019 by Jose Levin MD at [facility] [employer] [id number] / / Procedures Procedure Name Priority Date/Time Associated Diagnosis Comments DEVICE CHECK - REMOTE Routine 04/09/2025 2:04 PM CDT Automatic implantable cardiac defibrillator in situ NICM (nonischemic cardiomyopathy) (HCC) POCT GLUCOSE DEVICE Routine 04/06/2025 10:51 AM CDT CORONARY OCT, 1ST VESSEL Routine 04/06/2025 10:37 AM CDT Coronary artery disease of nuiqsut artery of nuiqsut heart with stable angina pectoris Cardiovascular stress test abnormal LEFT HEART CATHETERIZATION WITH CORONARY ANGIOGRAPHY AND WITH AND WITHOUT LEFT VENTRICULOGRAM Routine 04/06/2025 10:37 AM CDT Coronary artery disease of nuiqsut artery of nuiqsut heart with stable angina pectoris Cardiovascular stress test abnormal MODERATE SEDATION 04/06/2025 9:4 2 AM CDT Coronary artery disease of nuiqsut artery of nuiqsut heart with stable angina pectoris Cardiovascular stress [...] 12:18 PM CDT Coronary artery disease of nuiqsut artery of nuiqsut heart with stable angina pectoris POCT LIPID PANEL Routine 03/05/2025 10:59 AM CDT Coronary artery disease of nuiqsut artery of nuiqsut heart with stable angina pectoris Hyperlipidemia associated with type 2 diabetes mellitus (HCC) from Last 3 Months Results * DEVICE CHECK - REMOTE (04/09/2025 2:04 PM CDT) Anatomical Region Laterality Modality Other Narrative 04/28/2025 4:19 PM CDT [employer] Caddy [employer]ronik Single ICD. Dx; NICM. DOI 01/20/2020-[facility]. Biotronik remote home monitoring. Routine VDI ICD remote. Normal device function. Battery function-3.12V, 78% remaining battery life to ABRAHAM. Charge time-9.5 seconds. Appropriate lead measurements noted. Presenting rhythm: -VS. MENTAL HEALTH PROGRAM DIRECTOR-0%. No AT/AF episodes noted. No Ventricular arrhythmias noted. Medications; Entresto, Coreg 12.5 mg BID, ASA 81 mg. See scanned report. Office device f/u 10/21/2025. Biotronik remote f/u 07/14/2025. Arabella Orr, RN us Alba Alvarez MD CV CARDIAC SERVICES PROCE [facility] Final Result * POCT glucose (04/06/2025 10:51 AM CDT) Glucose, POC 122 70 - 199 mg/dL Blood 04/06/2025 10:5 1 AM CDT 04/06/2025 10:51 AM CDT us Jose Levin MD LAB POCT ORDERABLES - DEVICE Fin al Result Performing Organization Address City/State/[facility] Co md Phone Number [facility] [address] Department [place] [address] * LEFT HEART CATHETERIZATION WITH CORONARY ANGIOGRAPHY [...] CAD s/p PCI- PTCA/2.5 x 16 mm [employer] Synergy everolimus eluting stent placement in [...] groin hematoma, retroperitoneal bleed, vessel perforation; periprocedural PR, cardiac arrhythmias, stroke, contrast induced nephropathy, and . After discussing all the benefits, risks and alternatives, patient was willing to proceed with the procedure. PROCEDURES PERFORMED: Ultrasound-guided right radial arterial access Left heart catheterization-selective left and right coronary angiogram, LV pressure measurement, hemodynamic assessment Percutaneous coronary intervention-intravascular ultrasound (IVUS) of left main coronary artery Moderate sedation-CPT code 44940 and beyond MODERATE SEDATION: Midazolam 1 mg , Fentanyl 25 mcg, start time 0951 stop time 1037, total direct gwnw-wd-uiam monitoring of conscious sedation 46 minutes (CPT 03159) TRAINED OBSERVER: Dee Dee George RN was trained observer for moderate sedation. ACCESS SITE: Right radial artery PROCEDURE: After obtaining informed consent, patient was brought to the analytical lab technician and prepped and draped in the usual sterile manner. Time-out and immediate reassessment of the patient was performed. After local anesthesia with lidocaine, right radial artery access was taken with micropuncture needle under ultrasound guidance followed by insertion of a 6 Swedish sheath. Patient received 2.5 mg of verapamil, [...] proximal-mid segment after origin of the septal ground equipment mechanic. It becomes a bifurcating LAD with diagonal [...] artery ostium was selectively engaged using 6 Swedish JL 3.5 guide catheter. Patient received bivalirudin for procedural anticoagulation. A 0.014 luge guidewire was advanced in the left main and into the left circumflex artery. IVUS was performed using saxman eye reno-sparks catheter on manual pullback. Mildly calcific stenosis [...] was used to complete this document, therefore, rn cvicu variances may occur. Jose Levin MD, [facility] 04/06/25 us Jose Levin MD [...] LAB BLOOD ORDERABLES Final Resul t [facility] [address] Department [place] [address] * (ABNORMAL) Comprehensive metabolic panel (04/06/2025 8:38 [...] BLOOD ORDERABLES Final Resul t [facility] [address] Department [employer] [place] [address] * POCT glucose (04/06/2025 8:12 AM CDT) Pathologist [facility] Glucose, POC 143 70 - 199 mg/dL Blood 04/06/2025 8:12 AM CDT 04/06/2025 8:12 AM CDT Jose Levin MD LAB POCT ORDERABLES - DEVICE Fin al Result Performing Organization Address [facility] Co de Phone Number [facility] [address] Department [employer] [place], [place] [id number] * (ABNORMAL) CBC with auto differential (04/01/2025 10:03 AM CDT) [facility] WBC 6.5 3.4 - 10.8 x10E3/uL [facility] [...] 04/01/2025 11:08 PM CDT Performed at: [address] [id number] Application Integration Architect: Naeem Oliveros PhD, Phone: [phone] us Alba Alvarez MD LAB BLOOD ORDERABLES Yanely l Result [facility] 01 * (ABNORMAL) Comprehensive [...] AM CDT Performed at: 01 - [facility] [address] [id number] Application Integration Architect: Naeem Oliveros PhD, Phone: [phone] us Alba Alvarez MD LAB BLOOD ORDERABLES Yanely l Result [facility] - 01 * NM MPI SPECT (Rest and/or Stress) Multiple Studies (03/12/2025 12:18 PM CDT) Anatomical Region Laterality Modality Body N/A Electrocardiogra phy 03/12/2025 10:3 0 AM CDT Narrative 03/12/2025 4:22 PM CDT [facility] Cardiology [address] [facility] [address] [address] [address] [facility] [address], [place] [address] [address] , [place] [address] P:[phone] P:[phone] MPI Imaging Report Patient Name: IQRA QUIÑONES L : 1945 Study Date: 03/12/2025 10:30:00 AM Sex: M Tech: WALDO HERNANDEZ Location: [facility] Provider: ALBA ALVAREZ Height(Cm): 165.1 BSA: Weight(Kg): 69.4 Heart Rate: 119 BMI: 25.46 Order Provider: ALBA ALVAREZ PHYSICIAN: Primary Care Physician: Dr. Muñiz. [facility] Physician: Evangelist Alvarez M.D. Stress Supervision: Evangelist Alvarez M.D. Stress Interpreting Physician: Evangelist Alvarez M.D. Image Interpreting Physician: Evangelist Alvarez M.D. PROCEDURES: Pharmacologic SPECT Report: Myocardial perfusion imaging with Tc99M Sestamibi SPECT at rest and stress post regadenoson (Lexiscan) infusion. INDICATIONS: Hypertension, Diabetes, Family Hx CAD, and I25.118 Atherosclerotic heart disease of nuiqsut coronary artery with other forms of angina [...] Procedure Note Alba Alvarez MD - 03/12/2025 [facility] Cardiology [address] [facility] [address] [address] [address] [facility] [address] [place], [place] [address] [address] [place] [address] P:[phone] P:[phone] MPI Imaging Report Patient Name: IQRA QUIÑONES L : 1945 Study Date: 03/12/2025 10:30:00 AM Sex: M Tech: DAVID [facility] Location: [facility] Provider: ALBA ALVAREZ Height(Cm): 165.1 BSA: Weight(Kg): 69.4 Heart Rate: 119 BMI: 25.46 Order Provider: ALBA ALVAREZ PHYSICIAN: Primary Care Physician: Dr. Muñiz. [facility] Physician: Evangelist Alvarez M.D. Stress Supervision: Evangelist Alvarez M.D. Stress Interpreting Physician: Billy Moreno Image Interpreting Physician: Evangelist Alvarez M.D. PROCEDURES: Pharmacologic SPECT Report: Myocardial perfusion imaging with Tc99M Sestamibi SPECT at rest and stresspost regadenoson (Lexiscan) infusion. INDICATIONS: Hypertension, Diabetes, Family Hx CAD, and I25.118 Atherosclerotic heartdisease of nuiqsut coronary artery with other forms of angina [...] Final Result from Last 3 Months Insurance [facility] [employer] CHOICE PPO Care Teams Lithographic Artist Relationship Specialty Start Date End Date Marko Muñiz MD PCP - General Family Medicine 07/15/19
--- OUTSIDE RECORDS SUMMARY | 2025-05-28 02:20 | XMS_ITS | Encounter Summary ---
Author Organization [facility] Address [address] [facility] [place] [address] Care Team Providers Care Supervisor Central Supply Name Role Phone Marko Muñiz MD Primary Care Provider + Encounter Details Date Type Department Care Team (Late st Contact Info) Description 12/14/2022 Lab Requisition [facility] - DermPath Lab [address] [facility], [place] [address] Radha Ravi DO [address] [facility] 3 [place] [address] Social History Tobacco Use Types Packs/Day Years [...] AM CDT) Case Report Dermatopathology Report Case: [id number] Authorizing Provider: Radha Ravi DO Collected: 12/14/2022 10:46 AM Ordering Location: [facility] DermPath Lab Received: 12/15/2022 01:12 PM Pathologist: [...] purposes. Billing Codes Specimen Charges Stain Charges 05750 1 3 1:57 PM CDT DERMATOPATHOLOGY LABORATORY Embedded Images 3 1:57 PM CDT DERMATOPATHOLOGY LABORATORY Pathology/Cytolo gy TISSUE SPECIMEN FROM SKIN / Unknown 12/14/2022 10:46 AM CDT 12/15/2022 1:12 PM CDT us Radha Ravi DO LAB - PATHOLOGY/CYTOLOGY ORDERABLES Final Result DERMATOPATHOLOGY LABORATORY [facility] - Department of Dermatology [address], [address] [place] [address], [facility] [phone] documented in this encounter Visit Diagnoses Not on filedocumented in this encounter Care Teams Supervisor Central Supply Relationship Specialty Start Date End Date Marko Muñiz MD [address] [address] PCP - General 12/27/20 documented as of this encounter
--- OUTSIDE RECORDS SUMMARY | 2025-05-28 02:20 | XMS_ITS | Encounter Summary ---
Author Organization [facility] Address [address] [facility] [place] [address] Care Team Providers Care Sales Floor Manager Name Role Phone Marko Muñiz MD Primary Care Provider + Encounter Details Date Type Department Care Team (Late st Contact Info) Description 05/12/2024 Lab Requisition [facility] - DermPath Lab [address] [facility], [facility] [place] [address] Radha Ravi DO [address] [facility] 3 [place] [address] Social History Tobacco Use Types Packs/Day Years [...] Comments DERMATOPATHOLOGY Routine 05/12/2024 12:2 5 PM MUTUAL FUND ANALYST documented in this encounter Results * DERMATOPATHOLOGY (05/12/2024 12:25 PM MUTUAL FUND ANALYST) Case Report Dermatopathology Report Case: [id number] Authorizing Provider: Radha Ravi DO Collected: 05/12/2024 12:25 PM Ordering Location: [facility] - Received: 05/13/2024 07:41 AM DermPath Lab Pathologist: Linda Celis MD Specimen: Skin, left neck 1:50 PM MUTUAL FUND ANALYST DERMATOPATHOLOGY LABORATORY Final Diagnosis Specimen A. SKIN, left neck: BASAL CELL CARCINOMA (C44.41) PRESENT AT LATERAL MARGIN DERMAL SCAR (L90.5) 4 1:50 PM [facility] DERMATOPATHOLOGY LABORATORY at [address] MUTUAL FUND ANALYST Clinical History BCC vs proven 4 1:50 PM [facility] DERMATOPATHOLOGY LABORATORY Gross Description Specimen A: Received is one formalin filled container labeled with the patient's name and designated left neck. The specimen consists of a non-oriented ellipse of skin measuring 52h28k0 mm. The epidermal surface is unremarkable. The margin is inked green. The 12 o'clock and 6 o'clock tips are submitted in cassette 1. The remainder of the ellipse is serially sectioned and submitted in cassette 2-3. Jar 0. 4 1:50 PM [facility] DERMATOPATHOLOGY LABORATORY Microscopic Description Specimen [...] to the skin surface. 4 1:50 PM [facility] DERMATOPATHOLOGY LABORATORY Disclaimer An external and internal positive and negative controls are appropriate for the histochemical, immunohistochemical and immunofluorescence stain(s) in this case (if any), except where stated explicitly. The performance characteristics of the stain(s) cited in this report were developed and its performance characteristic determined by the Dermatopathology Laboratory at [facility], directed by Dr. Batool Mckoy. These tests need not be, and therefore are not, approved by the [place] Food and Drug Administration. The tests are used for clinical purposes. Billing Codes Specimen Charges Stain Charges 88956 1 4 1:50 PM [facility] DERMATOPATHOLOGY LABORATORY Embedded Images 4 1:50 PM [facility] DERMATOPATHOLOGY LABORATORY Pathology/Cytolo gy TISSUE SPECIMEN FROM SKIN / Unknown 05/12/2024 12:25 PM MUTUAL FUND ANALYST 05/13/2024 7:41 AM MUTUAL FUND ANALYST us Radha Ravi DO LAB - PATHOLOGY/CYTOLOGY ORDERABLES Final Result DERMATOPATHOLOGY LABORATORY [facility] - Department of Dermatology [facility] Specialized Medicine [facility] [facility], 3rd Floor [address] [phone] documented in this encounter Visit Diagnoses Not on filedocumented in this encounter Care Teams Sales Floor Manager Relationship Specialty Start Date End Date Marko Muñiz MD [address] [address] PCP - General 12/27/20 documented as of this encounter
--- OUTSIDE RECORDS SUMMARY | 2025-05-28 02:20 | XMS_ITS | Encounter Summary ---
Author Organization [facility] Address [address] [place] [address] Care Team Providers Care Central Service Supply Distributor Name Role Phone Marko Muñiz MD Primary Care Provider + Encounter Details Date Type Department Care Team (Late st Contact Info) Description 10/17/2023 Lab Requisition [facility] - DermPath Lab [address] [facility], [facility] [place] [address] Radha aRvi DO [address] [facility] 3 [place] [address] Social History Tobacco Use Types Packs/Day Years [...] AM CDT) Case Report Dermatopathology Report Case: [id number] Authorizing Provider: Radha Ravi DO Collected: 10/17/2023 [...] 6x6x1 mm. Jar 0. 12:[address] [facility] DERMATOPATHOLOGY LABORATORY Microscopic Description Specimen A. SKIN, [...] characteristic determined by the Dermatopathology Laboratory at [facility], directed by Dr. Batool Mckoy. These tests need not be, and therefore are not, approved by the [place] Food and Drug Administration. The tests are used for clinical purposes. Billing Codes Specimen Charges Stain Charges 27795 61248 1 1 4 12:45 PM CDT DERMATOPATHOLOGY LABORATORY Embedded Images 12:45 PM CDT DERMATOPATHOLOGY LABORATORY Pathology/Cytology TISSUE SPECIMEN FROM SKIN / Unknown 10/17/2023 9:57 AM CDT 10/18/2023 7:54 AM CDT Miscellaneous samples (specimen) TISSUE SPECIMEN FROM SKIN / Unknown 10/17/2023 9:57 AM CDT 10/18/2023 7:54 AM CDT us Radha Ravi DO LAB - PATHOLOGY/CYTOLOGY ORDERABLES Final Result DERMATOPATHOLOGY LABORATORY [facility] - Department of Dermatology [facility] Specialized Medicine [address] [place] [address], [address] [phone] documented in this encounter Visit Diagnoses Not on filedocumented in this encounter Care Teams Central Service Supply Distributor Relationship Specialty Start Date End Date Marko Muñiz MD [address] [place] [address] PCP - General 12/27/20 documented as of this encounter
--- OUTSIDE RECORDS SUMMARY | 2025-05-28 02:20 | XMS_ITS | Encounter Summary ---
Author Organization [facility] Address [address] [facility] [place] [address] Care Team Providers Care Pediatric Anesthesiologist Name Role Phone Marko Muñiz MD Primary Care Provider + Encounter Details Date Type Department Care Team (Late st Contact Info) Description 04/24/2024 Lab Requisition [facility] - DermPath Lab [address] [facility], [facility] [place] [phone] Radha Ravi DO [address] [facility] 3 [place] [address] Social History Tobacco Use Types Packs/Day Years [...] AM CDT) Case Report Dermatopathology Report Case: [id number] Authorizing Provider: Radha Ravi DO Collected: 04/24/2024 [...] determined by the Dermatopathology Laboratory at [facility], directed by Dr. Batool Mckoy. These tests need not be, and therefore are not, approved by the [place] Food and Drug Administration. The tests are used for clinical purposes. Billing Codes Specimen Charges Stain Charges 64892 96690 1 1 3:40 PM CDT DERMATOPATHOLOGY LABORATORY Embedded Images 3:40 PM CDT DERMATOPATHOLOGY LABORATORY Pathology/Cytology TISSUE SPECIMEN FROM SKIN / Unknown 04/24/2024 10:17 AM CDT 04/25/2024 12:27 PM CDT Miscellaneous samples (specimen) TISSUE SPECIMEN FROM SKIN / Unknown 04/24/2024 10:17 AM CDT 04/25/2024 12:27 PM CDT us Radha Ravi DO LAB - PATHOLOGY/CYTOLOGY ORDERABLES Final Result DERMATOPATHOLOGY LABORATORY [facility] - Department of Dermatology [facility] [address] [place] [address], [address] [phone] documented in this encounter Visit Diagnoses Not on filedocumented in this encounter Care Teams Pediatric Anesthesiologist Relationship Specialty Start Date End Date Marko Muñiz MD [address] [place] [id number] PCP - General 12/27/20 documented as of this encounter
--- OUTSIDE RECORDS SUMMARY | 2025-05-28 02:20 | XMS_ITS | Encounter Summary ---
Author Organization [facility] Address [address] [facility] [place] [address] Care Team Providers Care Roller Inspector And Mender Name Role Phone Marko Muñiz MD Primary Care Provider + Encounter Details Date Type Department Care Team (Late st Contact Info) Description 03/22/2023 Lab Requisition [facility] - DermPath Lab [address] [facility], [place] [phone] Radha Ravi DO [address] [facility] 3 [place] [address] Social History Tobacco Use Types Packs/Day Years [...] AM CDT) Case Report Dermatopathology Report Case: [id number] Authorizing Provider: Radha Ravi DO Collected: 03/22/2023 09:54 AM Ordering Location: [facility] DermPath Lab Received: 03/23/2023 08:07 [...] characteristic determined by the Dermatopathology Laboratory at [facility], directed by Dr. Batool Mckoy. These tests need not be, and therefore are not, approved by the [place] Food and Drug Administration. The tests are used for clinical purposes. Billing Codes Specimen Charges Stain Charges 25594 1 3 1:46 PM CDT DERMATOPATHOLOGY LABORATORY Embedded Images 3 1:46 PM CDT DERMATOPATHOLOGY LABORATORY Pathology/Cytolo gy TISSUE SPECIMEN FROM SKIN / Unknown 03/22/2023 9:54 AM CDT 03/23/2023 8:07 AM CDT us Radha Ravi DO LAB - PATHOLOGY/CYTOLOGY ORDERABLES Final Result DERMATOPATHOLOGY LABORATORY [facility] - Department of Dermatology [address] [place] [address], [facility] [phone] documented in this encounter Visit Diagnoses Not on filedocumented in this encounter Care Teams Roller Inspector And Mender Relationship Specialty Start Date End Date Marko Muñiz MD [address] [address] PCP - General 12/27/20 documented as of this encounter
--- OUTSIDE RECORDS SUMMARY | 2025-05-28 02:20 | XMS_ITS | Encounter Summary ---
Author Organization [facility] Address [address] [facility] [place] [address] Care Team Providers Care Concession Supervisor Name Role Phone Marko Muñiz MD Primary Care Provider + Encounter Details Date Type Department Care Team (Late st Contact Info) Description 12/27/2020 Lab Requisition [facility] DermPath Lab [address] [facility] [place] [phone] Radha Ravi DO [address] [facility] 3 [place] [address] Social History Tobacco Use Types Packs/Day Years [...] AM CDT) Case Report Dermatopathology Report Case: [id number] Authorizing Provider: Radha Ravi DO Collected: 12/24/2020 12:00 AM Ordering Location: [facility] DermPath Lab Received: 12/27/2020 09:05 AM Pathologist: Farzaneh Hickey MD Specimens: A) - Skin, forehead B) - Skin, right forearm 10:17 AM CDT DERMATOPATHOLOGY LABORATORY Final Diagnosis Specimen A. SKIN, forehead: BASAL CELL CARCINOMA, SUPERFICIAL MULTIFOCAL (C44.319) Specimen B. SKIN, right forearm: ACTINIC KERATOSIS, LICHENOID (L57.0) SOLAR LENTIGO (L81.4) (see microscopic description) 10:[address] [facility] DERMATOPATHOLOGY LABORATORY at 1017 CDT Clinical History A: R/O BCC. B: R/O melanoma. 10:[address] [facility] DERMATOPATHOLOGY LABORATORY Gross Description Specimen A: Received is one formalin filled container labeled with the patient's name and designated forehead. The specimen consists of a shave measuring 5m3s6nj. Jar 0. Specimen B: Received is one formalin filled container labeled with the patient's name and designated right forearm. The specimen consists of a shave measuring 1f1a4pj. Jar 0. 10:[address] [facility] DERMATOPATHOLOGY LABORATORY Microscopic Description Specimen A. SKIN, [...] determined by the Dermatopathology Laboratory at [facility], directed by Dr. Batool Mckoy. These tests need not be, and therefore are not, approved by the [place] Food and Drug Administration. The tests are used for clinical purposes. Billing Codes Specimen Charges Stain Charges 04066 00671 1 1 94006 1 1 10:17 AM CDT DERMATOPATHOLOGY LABORATORY Embedded Images 10:17 AM CDT DERMATOPATHOLOGY LABORATORY Pathology/Cytology TISSUE SPECIMEN FROM SKIN / Unknown 12/24/2020 12/27/2020 9:05 AM CDT Miscellaneous samples (specimen) TISSUE SPECIMEN FROM SKIN / Unknown 12/24/2020 12/27/2020 9:05 AM CDT us Radha Ravi DO LAB - PATHOLOGY/CYTOLOGY ORDERABLES Final Result DERMATOPATHOLOGY LABORATORY [facility] - Department of Dermatology [facility] [address] [place] [address], [address] [phone] documented in this encounter Visit Diagnoses Not on filedocumented in this encounter Care Teams Concession Supervisor Relationship Specialty Start Date End Date Marko Muñiz MD [address] [place] [id number] PCP - General 12/27/20 documented as of this encounter
--- NOTE | 2025-05-28 06:30 | WPDHPUPDATE1 ---
History and Physical Update Update Date/Time: 05/28/25 06:30 History and Physical has been reviewed, including an updated exam of the patient. There are NO changes in the patient's condition. Risks, benefits, and alternatives have been discussed and questions answered. Patient agrees to proceed with procedure.
[2025-05-28] MEDS: LACTATED RINGERS 1,000 ML 30 ML IV CONT (11:00)
--- NOTE | 2025-05-28 12:52 | WPDANESEPPF ---
Anes - Initial Pre Proc Eval Procedure: Operation Date: 05/28/25 12:30 Proposed Procedures p Cystoscopy, Bladder Biopsy, Bilateral Retrograde Pyelography, - Charan Randle MD s Possible Trans Urethral Resection Bladder Tumor - Charan Randle MD Date/Time: 05/28/25 12:52 Surgeon: Charan Randle MD Pre Op Diagnosis: hx bladder CA, chronic cystitis Patient Data Age: 79 Gender: M Height: 1.65 m Weight: 68.2 kg Last Vital Signs Temp 97.9 F 05/28/25 12:03 Pulse 57 L 05/28/25 12:03 Resp 16 05/28/25 12:03 BP 102/54 L 05/28/25 12:03 Pulse Ox 100 05/28/25 12:03 O2 Del Method Room Air 05/28/25 12:03 Allergies Allergy/AdvReac Type Severity Reaction Status Date / Time No Known Allergies Allergy Verified 05/19/25 15:12 Home Medications ?Medication ?Instructions ?Recorded ?Confirmed ?Type carvedilol 12.5 mg tablet 12.5 mg PO BID 01/19/20 05/19/25 History sacubitril 49 mg-valsartan 51 mg 1 tablet PO BID 01/19/20 05/19/25 History tablet (Entresto) spironolactone 25 mg tablet 12.5 mg PO QAM 01/19/20 05/19/25 History multivitamin 1 tablet PO DAILY 04/06/22 05/19/25 History icosapent ethyl 1 gram capsule 2 g (2 x 1 gram) PO BID #90 caps 07/30/22 05/19/25 Rx (Vascepa) aspirin 81 mg tablet,delayed 81 mg PO DAILY 09/20/22 05/19/25 History release tamsulosin 0.4 mg capsule 0.4 mg PO DAILY #90 caps 09/03/24 05/19/25 Rx blood sugar diagnostic (Contour #100 ea 10/20/24 05/19/25 Rx Next Test Strips) lancets 33 gauge #100 ea 10/22/24 05/19/25 Rx blood-glucose meter (OneTouch #1 ea 12/25/24 05/19/25 Rx Verio Flex Meter) dapagliflozin propanediol 10 mg 10 mg PO DAILY #30 tabs 02/11/25 05/19/25 Rx tablet (Farxiga) metformin 500 mg tablet,extended 2,000 mg (4 x 500 mg) PO QPM #360 03/17/25 05/19/25 Rx release 24 hr tabs glimepiride 1 mg tablet 1 mg PO QAM #90 tabs 04/06/25 05/19/25 Rx lovastatin 40 mg tablet 40 mg PO QPM #90 tabs 04/13/25 05/19/25 Rx blood sugar diagnostic (OneTouch #100 ea 04/23/25 05/19/25 Rx Verio test strips) fluticasone propionate 50 1 spray intranasal DAILY #16 grams 05/19/25 05/19/25 Rx mcg/actuation nasal spray,suspension meclizine 12.5 mg tablet 12.5 mg PO TID PRN dizziness #30 05/19/25 05/19/25 Rx tabs finasteride 5 mg tablet See Rx Instructions .Route 05/26/25 Rx .COMPLEX #90 tabs Laboratory Tests 05/28/25 11:20 POC Capillary Glucose 131 H mg/dl (65-105) Patient hx anesthesia problems: none Family hx anesthesia problems: none Results Review: All pre-operative results and documents have been reviewed as part of the pre-operative evaluation. [facility] Past Medical History Medical History BMI 26.0-26.9,adult Vasovagal syncope History of skin cancer basal cell, squamous cell ICD (implantable cardioverter-defibrillator) in place Hyperlipidemia Hypertension CHF (congestive heart failure) EF 30% Cancer of overlapping sites of bladder Cardiomyopathy Diagnosed July 2019 Surgical History Surgical History Hx of heart artery stent Family History Family History Mother Diabetes mellitus Hypertension Alzheimer disease CAD (coronary artery disease) Father Hypertension CAD (coronary artery disease) Acute myocardial infarction Sibling No problems noted. Social History Social History Social History: , retired Smoking status: Never smoker Second hand tobacco smoke exposure: No Alcohol intake: never Substance use: never Substance use type: does not use Do You Feel Safe in your Home?: Yes Lack of Transportation: No Lack of Food: Never True Current Housing: I Have Housing Concerned About Future Housing: No Difficulty Paying Gas/Electric Bills: No Difficulty Paying for Meds: No Currently Unemployed: No Education: Trade/Vocational Certificate Difficulty w/ Childcare or Family Care: No Living arrangements: with family Additional living arrangements comments: Occupation/Education: retired 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 Gender identity (if verbalized by the patient): Male Sexual Orientation (if Verbalized by the Patient): Straight or Heterosexual Spiritual care concerns: No Agree to blood products: Yes Anes - Eval Final PreProcedure Day of Procedure 05/28/25 12:52 Patient weight: normal Lungs: normal air movement Airway: Mallampati scale class II Neurological: alert and oriented Last oral intake: >/= 8 hours ASA classification: IV Emergent: no Anesthetic plan: proceed Anesthesia type and monitoring: general LMA and standard monitoring Results Review: All pre-operative results and documents have been reviewed as part of the pre-operative evaluation. CAD s/p PTCA 2019, hx CM, s/p Pacer/defib, now w nml LVEF. Pt had cardiac cath 2024 w mild CAD to Renetta p[place], [place] mgt rec. Informed Consent: The patient's anesthetic plan and its attendant risks and benefits were discussed with the patient/family/POA. Questions were solicited and answers provided to the satisfaction of the patient/family/POA.
[2025-05-28] MEDS: ceFAZolin 2 GM in SODIUM CHLORIDE 0.9% IV 50 ML 100 ML IVPB (13:10)
[2025-05-28] MEDS: LIDOCAINE 2% GEL UROJET 10 ML PKG MUCOUS MEM (13:18)
--- NOTE | 2025-05-28 13:23 | SUR.OPER ---
Urine culture for cytology given to [facility] Amadeo at 1319; Amadeo gave specimen to Lola at 1323
--- NOTE | 2025-05-28 13:25 | S_PTH ---
PATIENT: Kelechi Perry LOC: [facility] U#:[id number] AGE/SX: 79/M ROOM: RE05/28/[address]: Charan Randle MD : 1945 BED: DIS: 05/28/2025 SPEC #: [id number] RECD: 05/28/25 14:24 STATUS: ANGIE REQ #: [id number] STEFANIE: 05/28/25 13:[address]: Charan Randle DEPT: [facility] Surgical RECD BY: Lola Abbott ENTERED: 05/28/25 14:24 SP TYPE: Surgical OTHR DR: Marko Muñiz MD Tissues: A - Bladder Biopsy B - Urine Procedures: Hematoxylin and Eosin Stain Gross and Microscopic Level 4 P53 CK 20 Cytopathology Cytospin Mib
--- NOTE | 2025-05-28 13:48 | W.PM.PROC2 ---
Procedure Note - Detailed Date of Procedure 05/28/25 Pre-op Diagnosis hx bladder CA, chronic cystitis, abnormal urine cytology Post-op Diagnosis Same Procedure Performed Cystoscopy, bilateral retrograde pyelography, bladder biopsy and bladder fulguration Surgeon Charan Randle MD Anesthesia General Findings 1. Abnormally place ureteral orifices in a cephalad position with extreme J hooking of ureters 2. Hyperemia of the trigone with otherwise normal appearing bladder Description of Procedure Pre she brought to the operative suite where he has prepped draped in routine sterile fashion while in dorsal lithotomy position after the uneventful induction of a general LMA anesthetic. Cystoscopy was undertaken 1st with a 19 F rigid cystoscope. The bladder is very carefully inspected. There is some hahi-pa-hmgjcyfz hyperemia of the trigone midline. The remainder of the bladder mucosa appears normal without obvious neoplasm is a of hyperemia. His very unusually, cephalad placed ureteral orifices which were somewhat difficult to identify. With retrograde pyelography I see there was extreme J hooking of the distal ureter. There were no obvious filling defects. I was unable pass a guidewire into the proximal ureter renal pelvis and therefore was unable to obtain selective cytology. A biopsy forceps was used to obtain a couple biopsies of the hyperemic area in the bladder trigone. The base of the sites cauterized with the rollerball electrode. The remainder of the ears hyperemia in the trigone her likewise cauterized with the rollerball. This was all done with care to avoid injury to the ureteral orifices. The scopes was removed and he was taken to the recovery room good condition Drains No Pathology None sent Complications No immediate complications Condition Stable Disposition PACU
== END 2025-05-28 15:50 | disposition home or self-care (01) ==
PROVIDERS: PCP Family Medicine Adolescent Medicine; Visit Provider Urology
PROC: 0TBB8ZX Excision of Bladder, Via Natural or Artificial Opening Endoscopic, Diagnostic (ICD-10-PCS; CPT 52204; principal; 2025-05-28 12:30)
DX: D09.0 Carcinoma in situ of bladder (principal); N30.20 Other chronic cystitis without hematuria; N32.89 Other specified disorders of bladder; E78.5 Hyperlipidemia, unspecified; I25.10 Atherosclerotic heart disease of native coronary artery without angina pectoris; I11.0 Hypertensive heart disease with heart failure; I50.9 Heart failure, unspecified; R55 Syncope and collapse; Z79.82 Long term (current) use of aspirin; Z79.84 Long term (current) use of oral hypoglycemic drugs; Z95.5 Presence of coronary angioplasty implant and graft; Z95.810 Presence of automatic (implantable) cardiac defibrillator; Z85.828 Personal history of other malignant neoplasm of skin; Z85.51 Personal history of malignant neoplasm of bladder; Z82.49 Family history of ischemic heart disease and other diseases of the circulatory system
CPT/HCPCS: 52204; 74420; 82948; 88108; 88305; 88342; J0690; C1758; J2003; J2405; J2704; J3010; J7120; Q9966